=== PATIENT | female | born 1955 | race Caucasian/White ===

== ENCOUNTER 2020-01-23 11:30 | Inpatient (IN) | payer MEDICARE, OTHER ==
[~2020-01-23] VITALS: Ht 162.6 cm; Wt 106.1 kg
[~2020-01-23 11:30] MED LIST: ACET325T9 PO; ALBU2.5V14 NEB; ALBU2.5V8 IH; BIMA2.5D OP; BRIM5DRO3 LEFTEYE; CARV3.12 PO; CARV3.1210 PO; CLON-77 PO; CLOP75TA PO; CRESTOR40 MG PO; DEXT38GE2 PO; FAMO-63 PO; FENO160T PO; GABA-585 PO; INSU100C4 SQ; INSU100I13 SQ; INSU100I17 SQ; INSU100V13 SQ; INSU100V31 SQ; INSU100V8 SQ; LACT1CAP2 PO; LEVO100T5 PO; LEVO150T5 PO; LEVO200T5 PO; LINZESS145 MCG PO; METAMUCIL425 GM PO; METO25TA4 PO; MIDO10TA PO; MIDO2.5T PO; MULT-658 PO; NIAC500T PO; NYST100054 PO; ONDA4TAB10 SL; ONDA4TAB7 PO; PANT40TA77 PO; POLY2500 PO; POLY255P11 PO; PSYL0.526 PO; ROPI0.5T PO; ROPI0.5T4 PO; SERT100T PO; SERT25TA PO; SERT50TA PO; SEVE800T9 PO; SUCR500T PO; TRAM50TA PO; TRYP30OI2 TP; WARF1TAB2 PO; ZINC220T3 PO; [UNRECOGNIZED DRUG - OTHER]
--- NOTE | 2020-01-23 12:00 | RAD ---
Examination: CHEST AP ONLY History: Reason: sob, covid? / Spl. Instructions: / History: Comparison: 12/25/2017 AP view of the chest. Findings: AP portable upright frontal view of the chest was obtained. Postoperative findings of the sternum and mediastinal clips again seen. The cardiomediastinal silhouette is enlarged but this may in part be technique related. Lungs are clear. Borderline pulmonary vasculature noted. There is no pneumothorax. No pleural effusion is appreciated. Mild elevation of right hemidiaphragm is noted. No acute bone abnormality. IMPRESSION: No acute cardiopulmonary process. Electronically signed by: Colt Cheema MD (01/23/2020 11:58 AM) [id number]
[2020-01-23 12:38] LABS: BASO % 0 % (0-3); EOS # 0.1 x10^3/uL (0.0-0.7); EOS % 2 % (0-3); HEMATOCRIT 36.1 % (36.0-47.0); HEMOGLOBIN 11.8 g/dL (12.0-15.5); LYMPH # 0.7 x10^3/uL (1.0-4.8); LYMPH % 9 % (24-48); MEAN CORPUSCULAR HEMOGLOBIN 35 pg (25-35); MEAN CORPUSCULAR HGB CONC 33 g/dL (31-37); MEAN CORPUSCULAR VOLUME 107 fL (79-100); MONO # 0.5 x10^3/uL (0.0-1.1); MONO % 6 % (0-9); NEUT # 6.7 x10^3/uL (1.8-7.7); NEUT % 83 % (31-73); PLATELET COUNT 185 x10^3/uL (140-400); RED BLOOD COUNT 3.39 x10^6/uL (3.50-5.40); RED CELL DISTRIBUTION WIDTH 14.8 % (11.5-14.5); WHITE BLOOD COUNT 8.1 x10^3/uL (4.0-11.0)
[2020-01-23 12:49] LABS: CALCIUM 8.9 mg/dL (8.5-10.1); CREATININE 5.8 mg/dL (0.6-1.0); GFR 7.3; POTASSIUM 4.5 mmol/L (3.5-5.1)
[2020-01-23 12:56] LABS: ALBUMIN/GLOBULIN RATIO 0.6 (1.0-1.7); TOTAL BILIRUBIN 0.3 mg/dL (0.2-1.0); TOTAL PROTEIN 7.7 g/dL (6.4-8.2)
--- NOTE | 2020-01-23 12:57 | RAD ---
CT Head W/O Contrast: History: Reason: confusion / Spl. Instructions: / History: Comparison: December 25, 2017 Axial images were obtained without contrast. The large old left occipital parietal lobe infarct is again seen and is now mature with volume loss consistent with encephalomalacia. There is mild diffuse atrophy. There is no mass effect, extraaxial fluid collections or hydrocephalus. There is no gross bleed. Mild, patchy periventricular and subcortical white matter hypoattenuation is seen. There is no focal loss of carpio-white matter distinction to suggest acute ischemia, i.e. stroke. Impression: 1. Mild atrophy and chronic white matter changes slightly advanced for the patient's age. 2. Old large infarct on the left. 3. No acute findings. End impression PQRS Compliance Statement: One or more of the following individualized dose reduction techniques were utilized for this examination: 1. Automated exposure control 2. Adjustment of the mA and/or kV according to patient size 3. Use of iterative reconstruction technique Electronically signed by: Kofi Sykes III, MD (01/23/2020 12:54 PM) [id number]
[2020-01-23 13:23] LABS: C-REACTIVE PROTEIN 24.9 mg/L (0-3.3)
--- NOTE | 2020-01-23 13:55 | PHYS DOC ---
Past Medical History Past Medical History: Anemia, Constipation, CVA, Diabetes-Type II, High Cholesterol, Hypertension, Hypothyroid, Renal Disease, Renal Failure, Other Additional Past Medical Histor: restless leg, sleep apnea, glaucoma, cardio myopathy, ESRD Past Surgical History: Coronary Bypass Surgery, Other Additional Past Surgical Histo: left AKA, AV graft placement, Smoking Status: Never Smoker Alcohol Use: None Drug Use: None General Adult EDM: Chief Complaint: ALTERED MENTAL STATUS HPI: HPI: Patient is a 64 year old female who presents with altered mental status. According to nursing facility patient is normally fully alert and oriented. They state that they found her unresponsive with a pulse in bed. They called an ambulance and on the way here patient became more awake and alert. She then was able to tell us her name and location but was otherwise disoriented and mildly confused. She was moving all extremities. She was unable to provide us any history. Her only complaint was fatigue. She then became unresponsive again. Review of Systems: Review of Systems: Unable to obtain review of systems due to altered mental status Heart Score: Risk Factors: Risk Factors: DM, Current or recent (<one month) smoker, HTN, HLP, family history of CAD, obesity. Risk Scores: Score 0 - 3: 2.5% MACE over next 6 weeks - Discharge Home Score 4 - 6: 20.3% MACE over next 6 weeks - Admit for Clinical Observation Score 7 - 10: 72.7% MACE over next 6 weeks - Early Invasive Strategies Current Medications: Current Medications Medications (Trade) Dose Ordered Sig/[facility] Start Time Stop Time Status Last Admin Dose Admin Lorazepam (Ativan Inj) 1 mg 1X ONCE 01/23/20 12:30 01/23/20 12:31 DC 01/23/20 13:14 1 MG Allergies: Allergies: Allergies Coded Allergies Type Severity Reaction Last Updated Verified methylphenidate Allergy Intermediate 12/29/17 Yes acetaminophen Adverse Reaction Intermediate Nausea 12/29/17 Yes codeine Adverse Reaction Intermediate Nausea 12/29/17 Yes fentanyl Adverse Reaction Intermediate Nausea 12/29/17 Yes hydrocodone Adverse Reaction Intermediate Nausea 12/29/17 Yes morphine Adverse Reaction Intermediate Nausea 12/29/17 Yes oxycodone Adverse Reaction Intermediate Nausea 12/29/17 Yes Physical Exam: PE: General: lethargic, ill appearing HEENT: Atraumatic, EOMI, PERRL, airway patent, dry oral mucosa Neck: Supple, trachea midline Respiratory: CTA bilaterally, normal effort, no wheezing/crackles CV: RRR, no murmur, cap refill <2 GI: Soft, nondistended, nontender, no masses MSK: L BKA Skin: Warm, dry, intact Neuro: nonvocal, intermittently awake Current Patient Data: Labs: Laboratory Tests Test 01/23/20 12:20 White Blood Count 8.1 x10^3/uL (4.0-11.0) Red Blood Count 3.39 x10^6/uL (3.50-5.40) L Hemoglobin 11.8 g/dL (12.0-15.5) L Hematocrit 36.1 % (36.0-47.0) Mean Corpuscular Volume 107 fL (79-100) H Mean Corpuscular Hemoglobin 35 pg (25-35) Mean Corpuscular Hemoglobin Concent 33 g/dL (31-37) Red Cell Distribution Width 14.8 % (11.5-14.5) H Platelet Count 185 x10^3/uL (140-400) Neutrophils (%) (Auto) 83 % (31-73) H Lymphocytes (%) (Auto) 9 % (24-48) L Monocytes (%) (Auto) 6 % (0-9) Eosinophils (%) (Auto) 2 % (0-3) Basophils (%) (Auto) 0 % (0-3) Neutrophils # (Auto) 6.7 x10^3/uL (1.8-7.7) Lymphocytes # (Auto) 0.7 x10^3/uL (1.0-4.8) L Monocytes # (Auto) 0.5 x10^3/uL (0.0-1.1) Eosinophils # (Auto) 0.1 x10^3/uL (0.0-0.7) Basophils # (Auto) 0.0 x10^3/uL (0.0-0.2) D-Dimer (Sarah) 1.01 ug/mlFEU (0.00-0.50) H Sodium Level 134 mmol/L (136-145) L Potassium Level 4.5 mmol/L (3.5-5.1) Chloride Level 97 mmol/L (98-107) L Carbon Dioxide Level 28 mmol/L (21-32) Anion Gap 9 (6-14) Blood Urea Nitrogen 39 mg/dL (7-20) H Creatinine 5.8 mg/dL (0.6-1.0) H Estimated GFR (Cockcroft-Gault) 7.3 BUN/Creatinine Ratio 7 (6-20) Glucose Level 246 mg/dL (70-99) H Calcium Level 8.9 mg/dL (8.5-10.1) Total Bilirubin 0.3 mg/dL (0.2-1.0) Aspartate Amino Transferase (AST) 12 U/L (15-37) L Alanine Aminotransferase (ALT) 18 U/L (14-59) Alkaline Phosphatase 196 U/L (46-116) H Lactate Dehydrogenase 137 U/L (81-234) Creatine Kinase 25 U/L (26-192) L C-Reactive Protein, Quantitative 24.9 mg/L (0-3.3) H Total Protein 7.7 g/dL (6.4-8.2) Albumin 3.0 g/dL (3.4-5.0) L Albumin/Globulin Ratio 0.6 (1.0-1.7) L Laboratory Tests 01/23/20 12:20 Laboratory Tests 01/23/20 12:20 Vital Signs: Vital Signs Date Time Temp Pulse Resp B/P (MAP) Pulse Ox O2 Delivery O2 Flow Rate FiO2 01/23/20 13:17 62 12 100 01/23/20 11:30 98.2 168/72 (104) Room Air 98.2 EKG: EKG: [] Radiology/Procedures: Radiology/Procedures: [] Course & Med Decision Making: Course & Med Decision Making Pertinent Labs and Imaging studies reviewed. (See chart for details) Patient is a 64-year-old female with a history of end-stage renal disease who presents to the Emergency Room with altered mental status. On exam, patient initially was talking but disoriented. On reevaluation patient was mostly unresponsive with minimal twitching and no nystagmus. At this time it is unclear what is causing the patient's altered mental status, however they do not appear to be at their baseline. Differential includes infection, electrolyte imbalance, ACS, stroke, intracranial bleed, polypharmacy, dehydration, dementia, renal failure, seizures. Stroke is less likely given that she has episodes where she is talking mostly responsive and then episodes where she is nonresponsive. She does not have true aphasia or weakness or numbness. Patient does not have hypo-or hyperthermia. No history was provided to suggest seizure with postictal state. Glucose is 246 upon arrival. At arrival, patient is protecting their airway and does not need to be intubated. There is not any signs of trauma. To evaluate the patient's altered mental status, CBC, CMP, UA, troponin, EKG, CT head, coronavirus swab will be ordered. Patient was given Ativan during her episode of unresponsiveness for possible seizure. Patient has a severe UTI which is likely causes her altered mental status. Work up was rviewed and was remarkable for UTI. At this time, patient would benefit from further work up and management. Patient is not stable for discharge at this time. Results, vitals, interventions, and plan was discussed with the patient. Patient was given opportunity to ask any questions and are in agreement with plan for admission. Patient was discussed with admitting physician and bridge admission orders were placed. Further care will be managed by inpatient team. Munira Disclaimer: Dragmargot Disclaimer: This electronic medical record was generated, in whole or in part, using a voice recognition dictation system. Departure Departure Impression: Primary Impression: Altered mental status Disposition: ADMITTED INPATIENT Condition: GUARDED Referrals: TIANA JAY MD (PCP) Justicifation of Admission Dx: Justifications for Admission: Justification of Admission Dx: Yes LOI MATHIS MD Jan 23, 2020 13:55
[2020-01-23 14:23] LABS: CLARITY,URINE TURBID; COLOR,URINE BROWN
[2020-01-23 14:26] LABS: BILIRUBIN,URINE NEGATIVE (NEG); NITRITE,URINE NEGATIVE (NEG); PH,URINE 7.5 (<5.0-8.0); PROTEIN,URINE >=300 mg/dL (NEG-TRACE); UROBILINOGEN,URINE 0.2 mg/dL (0.2 mg/dL)
[2020-01-23 14:27] LABS: BACTERIA,URINE MANY /HPF (0-FEW); WBC,URINE TNTC /HPF (0-4)
[2020-01-23] MEDS ORDERED: CEFEPIME HCL IV Push 1 GM VIAL. IVP ONE (14:30)
--- NOTE | 2020-01-23 15:33 | RAD ---
STUDY: CT chest, abdomen and pelvis without contrast INDICATION: Abdominal bruising. Altered mental status. Fall injury. COMPARISON: None. TECHNIQUE: Helical CT imaging of the chest, abdomen and pelvis performed without the use of intravenous contrast. Sagittal and coronal reformats were obtained. One or more of the following individualized dose reduction techniques were utilized for this examination: 1. Automated exposure control 2. Adjustment of the mA and/or kV according to patient size 3. Use of iterative reconstruction technique. FINDINGS: Chest: Extensive calcific atherosclerosis. Status post median sternotomy for coronary artery bypass grafting. Nonaneurysmal aorta. Mildly prominent main pulmonary artery. Left infraclavicular fossa vascular stent. No pericardial effusion. No retrosternal hematoma. No pathologic mediastinal or hilar lymph nodes are identified though assessment is limited without contrast. Motion degraded assessment of the lungs. Scattered groundglass haziness throughout both lungs as well as tracking mostly linear densities at least in part related to discoid atelectasis. Limited assessment for solitary pulmonary nodules. No pleural effusion or pneumothorax. Multifocal muscular atrophy/fatty infiltration. No large body wall hematoma. Angulation of the posterior right ninth and 10th ribs but not appearing acute. No suspicious vertebral body height loss. Scattered degenerative changes. Abdomen/pelvis: Limited evaluation due to a combination of motion, patient body habitus and streak artifact relating to the arms. Large chronic focus of mineralization within the right hepatic lobe approaching the dome. No evidence for hepatic trauma. The gallbladder is not visualized. Fatty atrophy/infiltration of the pancreas. The spleen appears intact. No definite adrenal gland mass. Atrophic kidneys. Mild circumferential wall thickening of the urinary bladder without pericystic inflammation. Senescent uterus. No adnexal mass. The rectum is distended with well-formed stool and mildly thick-walled. Less pronounced though more proximally within the colon. Soft tissue fullness posterior to the anus and the posterior wall of the anorectal lumen this region is tented posteriorly such as seen on image 37 series 9. Gas and debris within the gluteal cleft. The appendix is absent. Nonobstructed small bowel. Poorly evaluated stomach due to underdistention. Extensive calcific atherosclerosis throughout the aorta, iliofemoral system and aortic branch vessels. Nonaneurysmal aorta. Incomplete assessment for stenosis without contrast. No lymphadenopathy. No free fluid or gas. Senescent body wall with muscular atrophy/fatty infiltration. Scattered ill-defined reticulation of the subcutaneous fat but no localized hematoma is seen. No acute or aggressive osseous process. Scattered degenerative changes. IMPRESSION: CHEST: 1. Degraded study due to motion artifact. 2. No sequela of trauma seen throughout the chest. 3. Heterogeneous attenuation pattern of the lungs favored mostly on account of scarring and atelectasis. An atypical infectious process is difficult to fully excluded but considered less likely and less clinical findings suggest otherwise. Abdomen/pelvis: 1. Degraded study due to motion, patient body habitus and streak artifact from the patient's arms. 2. No acute abnormality seen throughout the abdomen or pelvis. 3. Distention of the rectum with well-formed stool. Mild surrounding wall thickening and faint pericolonic inflammation suggesting some inflammation due to the extent of impacted stool. Soft tissue fullness at the posterior wall of the anorectal region where the lumen is somewhat tented. A colo-cutaneous fistula would be unusual but recommend correlation with patient history and direct inspection if needed (image 101 series 4 and image 37 series 9). 4. Senescent/chronic findings as detailed in the body the report. Electronically signed by: JEFFY LOCKETT MD (01/23/2020 3:30 PM) [id number]
[2020-01-23 17:00] VITALS: BP 103/57
--- NOTE | 2020-01-23 17:57 | PDOC1 ---
History and Physical Date of Admission Date of Admission DATE: 01/23/20 TIME: 17:56 History of Present Illness History of Present Illness Patient is a 64 year old female who presents with altered mental status. According to nursing facility patient is normally fully alert and oriented. They state that they found her unresponsive with a pulse in bed. They called an ambulance and on the way here patient became more awake and alert. She then was able to tell us her name and location but was otherwise disoriented and mildly confused. She was moving all extremities. She was unable to provide us any history. Her only complaint was fatigue. She then became unresponsive again. Past Medical History Cardiovascular: CHF, HTN, Hyperlipidemia, Other Pulmonary: Other CENTRAL NERVOUS SYSTEM: CVA, Other GI: Constipation, GI bleed Heme/Onc: Anemia NOS Renal/: Chronic renal failure Endocrine: Diabetes, Hypothyroidism Past Surgical History Past Surgical History: CABG, Other Family History Family History: No Significant (unable to review) Social History ALCOHOL: none Current Problem List Problem List Problems Medical Problems: (1) Altered mental status Status: Acute Current Medications Current Medications Current Medications Lorazepam (Ativan Inj) 1 mg 1X ONCE IVP Last administered on 01/23/20at 13:14; Start 01/23/20 at 12:30; Stop 01/23/20 at 12:31; Status DC Cefepime HCl (Maxipime) 1 gm 1X ONCE IVP Last administered on 01/23/20at 14:26; Start 01/23/20 at 14:30; Stop 01/23/20 at 14:31; Status DC Cefepime HCl (Maxipime) 1 gm Q12HR IVP ; Start 01/23/20 at 21:00; Status UNV Insulin Human Lispro (HumaLOG) 0-7 UNITS TIDWMEALS SQ ; Start 01/24/20 at 08:00; Status UNV Dextrose (Dextrose 50%-Water Syringe) 12.5 gm PRN Q15MIN PRN IV SEE COMMENTS; Start 01/23/20 at 18:00; Status UNV Active Scripts Active Reported Novolog Flexpen (Insulin Aspart) 100 Unit/1 Ml Insuln.pen 0 SQ Velphoro (Sucroferric Oxyhydroxide) 500 Mg Tab.chew 1,500 Mg PO TIDWMEALS Lumigan (Bimatoprost) 2.5 Ml Drops 2.5 Ml OP QHS [Aransep] Niaspan (Niacin) 500 Mg Tab.er.24h 500 Mg PO HS Levothyroxine Sodium 100 Mcg Tablet 1 Tab PO DAILY Midodrine Hcl 10 Mg Tablet 10 Mg PO QMWF Zoloft (Sertraline Hcl) 100 Mg Tablet 1 Tab PO DAILY Linzess (Linaclotide) 145 Mcg Capsule 145 Mcg PO DAILY Gabapentin (Gabapentin) 100 Mg Capsule 100 Mg PO TID Polyethylene Glycol 3350 2,500 Gm Powder 17 Gm PO DAILY Pantoprazole Sodium (Pantoprazole Sodium) 40 Mg Tablet.dr 40 Mg PO DAILY Midodrine Hcl 2.5 Mg Tablet 2.5 Mg PO DAILY Levothyroxine Sodium 150 Mcg Tablet 1 Tab PO DAILY Fenofibrate 160 Mg Tablet 1 Tab PO DAILY Clopidogrel (Clopidogrel Bisulfate) 75 Mg Tablet 1 Tab PO DAILY Clonazepam (Clonazepam) 0.5 Mg Tablet 0.5 Mg PO BID Centrum Silver Tablet (Multivits-Min/Fa/Lycopene/Lut) 1 Each Tablet 1 Each PO DAILY Carvedilol (Carvedilol) 3.125 Mg Tablet 1 Tab PO BID Alphagan P (Brimonidine Tartrate) 5 Ml Drops 1 Drop LEFTEYE BID Proair Hfa Inhaler (Albuterol Sulfate) 8.5 Gm Hfa.aer.ad 2 Puff IH PRN Q4-6HRS Zofran Odt (Ondansetron) 4 Mg Tab.rapdis 1 Tab SL PRN Q6HRS PRN Zinc Sulfate 220 Mg Tablet 220 Mg PO DAILY Tramadol Hcl 50 Mg Tablet 1 Tab PO Q4HRS PRN Renvela (Sevelamer Carbonate) 800 Mg Tablet 3 Tab PO TID Crestor (Rosuvastatin Calcium) 40 Mg Tablet 40 Mg PO HS Ropinirole Hcl 0.5 Mg Tablet 0.5 Mg PO QHS Requip (Ropinirole Hcl) 0.5 Mg Tablet 0.25 Mg PO DAILY Psyllium Fiber (Psyllium Husk) 0.52 Gm Capsule 3.4 Gm PO DAILY Polyethylene Glycol 3350 255 Gm Powder 1 s PO BID Acidophilus (Lactobacillus Acidophilus) 1 Each Capsule 1 Each PO TIDWMEALS Tylenol (Acetaminophen) 325 Mg Tablet 1-2 Tab PO QID PRN Allergies Allergies: Coded Allergies: methylphenidate (Verified Allergy, Intermediate, 12/29/17) acetaminophen (Verified Adverse Reaction, Intermediate, Nausea, 12/29/17) codeine (Verified Adverse Reaction, Intermediate, Nausea, 12/29/17) fentanyl (Verified Adverse Reaction, Intermediate, Nausea, 12/29/17) hydrocodone (Verified Adverse Reaction, Intermediate, Nausea, 12/29/17) morphine (Verified Adverse Reaction, Intermediate, Nausea, 12/29/17) oxycodone (Verified Adverse Reaction, Intermediate, Nausea, 12/29/17) ROS Review of System was confused, now obtunded after given ativan Physical Exam General: No acute distress, Other (obtunded, ) HEENT: Atraumatic, Mucous membr. moist/pink, Other Lungs: Clear to auscultation Heart: S1S2, no murmurs Abdomen: Normal bowel sounds, Soft Extremities: No cyanosis, Normal pulses Skin: No rashes Neuro: Sensation intact Psych/Mental Status: Other (obtunded, ) Vitals Vitals Vital Signs Date Time Temp Pulse Resp B/P (MAP) Pulse Ox O2 Delivery O2 Flow Rate FiO2 01/23/20 16:40 97.5 56 24 100 97.5 01/23/20 11:30 168/72 (104) Room Air Labs Labs Laboratory Tests Test 01/23/20 12:20 01/23/20 13:00 White Blood Count 8.1 x10^3/uL (4.0-11.0) Red Blood Count 3.39 x10^6/uL (3.50-5.40) Hemoglobin 11.8 g/dL (12.0-15.5) Hematocrit 36.1 % (36.0-47.0) Mean Corpuscular Volume 107 fL (79-100) Mean Corpuscular Hemoglobin 35 pg (25-35) Mean Corpuscular Hemoglobin Concent 33 g/dL (31-37) Red Cell Distribution Width 14.8 % (11.5-14.5) Platelet Count 185 x10^3/uL (140-400) Neutrophils (%) (Auto) 83 % (31-73) Lymphocytes (%) (Auto) 9 % (24-48) Monocytes (%) (Auto) 6 % (0-9) Eosinophils (%) (Auto) 2 % (0-3) Basophils (%) (Auto) 0 % (0-3) Neutrophils # (Auto) 6.7 x10^3/uL (1.8-7.7) Lymphocytes # (Auto) 0.7 x10^3/uL (1.0-4.8) Monocytes # (Auto) 0.5 x10^3/uL (0.0-1.1) Eosinophils # (Auto) 0.1 x10^3/uL (0.0-0.7) Basophils # (Auto) 0.0 x10^3/uL (0.0-0.2) D-Dimer (Sarah) 1.01 ug/mlFEU (0.00-0.50) Sodium Level 134 mmol/L (136-145) Potassium Level 4.5 mmol/L (3.5-5.1) Chloride Level 97 mmol/L (98-107) Carbon Dioxide Level 28 mmol/L (21-32) Anion Gap 9 (6-14) Blood Urea Nitrogen 39 mg/dL (7-20) Creatinine 5.8 mg/dL (0.6-1.0) Estimated GFR (Cockcroft-Gault) 7.3 BUN/Creatinine Ratio 7 (6-20) Glucose Level 246 mg/dL (70-99) Calcium Level 8.9 mg/dL (8.5-10.1) Total Bilirubin 0.3 mg/dL (0.2-1.0) Aspartate Amino Transf (AST/SGOT) 12 U/L (15-37) Alanine Aminotransferase (ALT/SGPT) 18 U/L (14-59) Alkaline Phosphatase 196 U/L (46-116) Lactate Dehydrogenase 137 U/L (81-234) Creatine Kinase 25 U/L (26-192) C-Reactive Protein, Quantitative 24.9 mg/L (0-3.3) Total Protein 7.7 g/dL (6.4-8.2) Albumin 3.0 g/dL (3.4-5.0) Albumin/Globulin Ratio 0.6 (1.0-1.7) Urine Collection Type U cath Urine Color Brown Urine Clarity Turbid Urine pH 7.5 (<5.0-8.0) Urine Specific [place] >=1.030 (1.000-1.030) Urine Protein >=300 mg/dL (NEG-TRACE) Urine Glucose (UA) Negative mg/dL (NEG) Urine Ketones (Stick) Negative mg/dL (NEG) Urine Blood Moderate (NEG) Urine Nitrite Negative (NEG) Urine Bilirubin Negative (NEG) Urine Urobilinogen Dipstick 0.2 mg/dL (0.2 mg/dL) Urine Leukocyte Esterase Large (NEG) Urine RBC /HPF (0-2) Urine WBC Tntc /HPF (0-4) Urine Bacteria Many /HPF (0-FEW) Laboratory Tests Test 01/23/20 12:20 01/23/20 13:00 White Blood Count 8.1 x10^3/uL (4.0-11.0) Red Blood Count 3.39 x10^6/uL (3.50-5.40) Hemoglobin 11.8 g/dL (12.0-15.5) Hematocrit 36.1 % (36.0-47.0) Mean Corpuscular Volume 107 fL (79-100) Mean Corpuscular Hemoglobin 35 pg (25-35) Mean Corpuscular Hemoglobin Concent 33 g/dL (31-37) Red Cell Distribution Width 14.8 % (11.5-14.5) Platelet Count 185 x10^3/uL (140-400) Neutrophils (%) (Auto) 83 % (31-73) Lymphocytes (%) (Auto) 9 % (24-48) Monocytes (%) (Auto) 6 % (0-9) Eosinophils (%) (Auto) 2 % (0-3) Basophils (%) (Auto) 0 % (0-3) Neutrophils # (Auto) 6.7 x10^3/uL (1.8-7.7) Lymphocytes # (Auto) 0.7 x10^3/uL (1.0-4.8) Monocytes # (Auto) 0.5 x10^3/uL (0.0-1.1) Eosinophils # (Auto) 0.1 x10^3/uL (0.0-0.7) Basophils # (Auto) 0.0 x10^3/uL (0.0-0.2) D-Dimer (Sarah) 1.01 ug/mlFEU (0.00-0.50) Sodium Level 134 mmol/L (136-145) Potassium Level 4.5 mmol/L (3.5-5.1) Chloride Level 97 mmol/L (98-107) Carbon Dioxide Level 28 mmol/L (21-32) Anion Gap 9 (6-14) Blood Urea Nitrogen 39 mg/dL (7-20) Creatinine 5.8 mg/dL (0.6-1.0) Estimated GFR (Cockcroft-Gault) 7.3 BUN/Creatinine Ratio 7 (6-20) Glucose Level 246 mg/dL (70-99) Calcium Level 8.9 mg/dL (8.5-10.1) Total Bilirubin 0.3 mg/dL (0.2-1.0) Aspartate Amino Transf (AST/SGOT) 12 U/L (15-37) Alanine Aminotransferase (ALT/SGPT) 18 U/L (14-59) Alkaline Phosphatase 196 U/L (46-116) Lactate Dehydrogenase 137 U/L (81-234) Creatine Kinase 25 U/L (26-192) C-Reactive Protein, Quantitative 24.9 mg/L (0-3.3) Total Protein 7.7 g/dL (6.4-8.2) Albumin 3.0 g/dL (3.4-5.0) Albumin/Globulin Ratio 0.6 (1.0-1.7) Urine Collection Type U cath Urine Color Brown Urine Clarity Turbid Urine pH 7.5 (<5.0-8.0) Urine Specific [place] >=1.030 (1.000-1.030) Urine Protein >=300 mg/dL (NEG-TRACE) Urine Glucose (UA) Negative mg/dL (NEG) Urine Ketones (Stick) Negative mg/dL (NEG) Urine Blood Moderate (NEG) Urine Nitrite Negative (NEG) Urine Bilirubin Negative (NEG) Urine Urobilinogen Dipstick 0.2 mg/dL (0.2 mg/dL) Urine Leukocyte Esterase Large (NEG) Urine RBC /HPF (0-2) Urine WBC Tntc /HPF (0-4) Urine Bacteria Many /HPF (0-FEW) VTE Prophylaxis Ordered VTE Prophylaxis Devices: No VTE Pharmacological Prophylaxi: Yes Assessment/Plan Assessment/Plan sepsis, UTI acute confusion, metabolic encephalopathy, was poorly responsive on admit, ESRD poss seizure disorder or post-ictal, given ativan for same before my eval, Justicifation of Admission Dx: Justifications for Admission: Justification of Admission Dx: Yes PRIYA BLACK MD Jan 23, 2020 17:57
[2020-01-23] MEDS ORDERED: DEXTROSE 50% 25 GM / 50ML DISP.SYRIN. IV PRN ×2 (18:00→19:00)
[2020-01-23] MEDS ORDERED: ACETAMINOPHEN 325 MG TABLET. PO PRN (18:00)
[2020-01-23] MEDS ORDERED: ONDANSETRON ODT 4 MG TAB.RAPDIS. PO PRN ×2 (18:00→19:15)
[2020-01-23] MEDS ORDERED: SENN-182 PO (18:35)
[2020-01-23] MEDS ORDERED: ROPI1TAB4 PO (18:35)
[2020-01-23] MEDS ORDERED: BIMA2.5D EACHEYE (18:35)
[2020-01-23] MEDS ORDERED: CLOP75TA PO (18:35)
[2020-01-23] MEDS ORDERED: ATOR40TA59 PO (18:35)
[2020-01-23] MEDS ORDERED: CYAN100072 PO (18:35)
[2020-01-23] MEDS ORDERED: NIAC-9 PO (18:35)
[2020-01-23] MEDS ORDERED: POLY15DR27 EACHEYE (18:35)
[2020-01-23] MEDS ORDERED: LINZESS145 MCG PO (18:35)
[2020-01-23] MEDS ORDERED: INSU100V13 SQ ×2 (18:35)
[2020-01-23] MEDS ORDERED: POLY17PO29 PO (18:35)
[2020-01-23] MEDS ORDERED: LEVO-101 PO (18:35)
[2020-01-23] MEDS ORDERED: FOLI0.8T21 PO (18:35)
[2020-01-23] MEDS ORDERED: MIDO10TA PO ×2 (18:35)
[2020-01-23] MEDS ORDERED: PSYL3.4P PO (18:35)
[2020-01-23] MEDS ORDERED: ONDA4TAB7 PO (18:35)
[2020-01-23] MEDS ORDERED: TRAM50TA PO (18:35)
[2020-01-23] MEDS ORDERED: BRIM5DRO2 OP (18:35)
[2020-01-23] MEDS ORDERED: ROPI0.254 PO (18:35)
[2020-01-23] MEDS ORDERED: FAMO-63 PO (18:35)
[2020-01-23] MEDS ORDERED: ZINC50TA39 PO (18:35)
[2020-01-23] MEDS ORDERED: METO10TA81 PO (18:35)
[2020-01-23] MEDS ORDERED: SEVE2.4P PO (18:35)
[2020-01-23] MEDS ORDERED: LACT1CAP6 PO (18:35)
[2020-01-23] MEDS ORDERED: [UNRECOGNIZED DRUG - CODE] TP (18:35)
[2020-01-23] MEDS ORDERED: INSU100C4 SQ (18:35)
[2020-01-23] MEDS ORDERED: GABA-585 PO (18:35)
[2020-01-23] MEDS ORDERED: DEXT38GE2 PO (18:35)
[2020-01-23] MEDS ORDERED: traMADol 50 MG TABLET PO PRN (18:45)
[2020-01-23] MEDS ORDERED: SERT100T PO (18:51)
[2020-01-23 19:00] VITALS: BP 121/52
--- NOTE | 2020-01-23 19:11 | NUR ---
Pt arrived to unit from ED via gurney. Pt completely unresponsive upon arrival. Only responsive to painful stimuli. VS within stable. Unable to complete portions of admission due to pt mental status. Family notified of admission. correction contacted and admit questions answered to the best of their abilities. Pt has P500 bed ordered.
[2020-01-23 19:23] LABS: MAGNESIUM 2.2 mg/dL (1.8-2.4); PHOSPHORUS 5.3 mg/dL (2.6-4.7)
[2020-01-23] MEDS ORDERED: PSYLLIUM HUSK (SUGAR FREE) 1 PKT PACKET PO SCH (21:00)
[2020-01-23] MEDS ORDERED: GABAPENTIN 100 MG CAPSULE. PO SCH (21:00)
[2020-01-23] MEDS: LACTOBACILLUS RHAMNOSUS GG 1 CAPSULE. PO SCH (21:00)
[2020-01-23] MEDS ORDERED: CARVEDILOL 3.125 MG TABLET. PO SCH (21:00)
[2020-01-23] MEDS: FAMOTIDINE 20 MG TABLET. PO SCH (21:00)
[2020-01-23] MEDS: INSULIN GLARGINE SYRINGE. SQ SCH (21:00)
[2020-01-23] MEDS: NIACIN ER 250 MG CAPSULE.ER PO SCH (21:00)
[2020-01-23] MEDS: GABAPENTIN 100 MG CAPSULE. PO SCH (21:00)
[2020-01-23] MEDS: rOPINIRole 1 MG TABLET. PO SCH (21:00)
[2020-01-23] MEDS: METOCLOPRAMIDE 5 MG TABLET. PO SCH (21:00)
[2020-01-23] MEDS: LATANOPROST 0.005% OPHTH SOLUTION 2.5ML BOTTLE. OU SCH (21:56)
[2020-01-23] MEDS: TIMOLOL 0.5% OPHTH SOLUTION 5ML BOTTLE. OU SCH (21:56)
[2020-01-23] MEDS: POLYVINYL ALCOHOL 1.4% OPHTH SOLUTION 15ML BOTTLE. OU SCH (21:56)
[2020-01-23] MEDS: BRIMONIDINE 0.2% OPHTH SOLUTION 5ML BOTTLE. OU SCH (21:56)
[2020-01-23] MEDS: HEPARIN for SUB-Q USE 5,000 UNIT/ML VIAL. SQ SCH (21:57)
[2020-01-24] VITALS (7 sets, daily range): BP systolic 104–140; BP diastolic 49–101
[2020-01-24] MEDS ORDERED: VANCOMYCIN 2 GM in IV NORMAL SALINE 500ML BAG 500 ML IV ONE (01:00)
[2020-01-24] MEDS: VANCOMYCIN PER PHARMACY MC PRN (01:12)
--- NOTE | 2020-01-24 01:12 | NUR ---
Pharmacy Vancomycin Dosing Note S:Consulted to monitor and dose vancomycin started 01/24/20. O:LAINE KING is a 64 year old F with UTI . Height: 5 feet, 4 inches Weight: 105.0 kg [place] Body Weight: 54.70 Adjusted Body Weight: 74.82 Dosing Weight: Actual Other Antibiotics: CEFEPIME 1 GM Q24H LABS: Last BUN: 39 Last Creatinine: 5.8 Creatinine Clearance: HD mL/min Last WBC: 8.1 Last Procalcitonin: Tmax (past 24 hours): Microbiology: I/O: Drug Levels: Last level: on at Last dose given 01/24/20 at 0100 Vancomycin Dosing: Loading Dose: 2000 mg x1 Dosing Weight: Actual Target Trough: 15-20 A: Based on: WT AND DIALYSIS SCHEDULE P: 1. Begin Vancomycin PER LEVELS IV Dose Per Levels 2. Follow up Random level on 01/26/20 at 0500 3. Pharmacy will continue to monitor, follow and adjust therapy as needed. CIELO CRUZ RPH, 01/24/20 0112 Signed: 01/24/20 at 0113 by CIELO CRUZ RPH PHA Signed: 01/24/20 at 0113 by CIELO NANCY, RPH PHA
[2020-01-24 05:36] LABS: BASO % 0 % (0-3); EOS # 0.2 x10^3/uL (0.0-0.7); EOS % 3 % (0-3); HEMOGLOBIN 11.1 g/dL (12.0-15.5); LYMPH # 0.8 x10^3/uL (1.0-4.8); LYMPH % 14 % (24-48); MEAN CORPUSCULAR HEMOGLOBIN 35 pg (25-35); MEAN CORPUSCULAR HGB CONC 33 g/dL (31-37); MEAN CORPUSCULAR VOLUME 107 fL (79-100); MONO # 0.5 x10^3/uL (0.0-1.1); MONO % 9 % (0-9); NEUT # 4.1 x10^3/uL (1.8-7.7); NEUT % 74 % (31-73); PLATELET COUNT 152 x10^3/uL (140-400); RED BLOOD COUNT 3.18 x10^6/uL (3.50-5.40); RED CELL DISTRIBUTION WIDTH 14.6 % (11.5-14.5); WHITE BLOOD COUNT 5.5 x10^3/uL (4.0-11.0)
[2020-01-24 05:37] LABS: PROTHROMBIN TIME PATIENT 13.7 SEC (11.7-14.0)
[2020-01-24 05:51] LABS: ALBUMIN 2.7 g/dL (3.4-5.0); ALBUMIN/GLOBULIN RATIO 0.8 (1.0-1.7); CALCIUM 8.3 mg/dL (8.5-10.1); CREATININE 6.4 mg/dL (0.6-1.0); GFR 6.5; POTASSIUM 4.6 mmol/L (3.5-5.1); TOTAL BILIRUBIN 0.4 mg/dL (0.2-1.0); TOTAL PROTEIN 6.3 g/dL (6.4-8.2)
[2020-01-24] MEDS: HYDROCORTISONE SOD SUCC/PF 100 MG/2 ML VIAL. IVP SCH ×3 (06:15→21:05)
[2020-01-24] MEDS: MIDODRINE 5 MG TABLET PO SCH ×3 (06:16→18:00)
[2020-01-24] MEDS ORDERED: PANTOPRAZOLE 40 MG TABLET.DR. PO SCH (07:00)
[2020-01-24] MEDS ORDERED: MIDODRINE 5 MG TABLET PO PRN (07:00)
[2020-01-24] MEDS: INSULIN LISPRO 300 UNITS/3 ML VIAL. SQ SCH ×6 (08:00→17:00)
[2020-01-24] MEDS ORDERED: SEVELAMER CARBONATE 800 MG TABLET. PO SCH (08:00)
[2020-01-24] MEDS ORDERED: INSULIN LISPRO 300 UNITS/3 ML VIAL. SQ SCH (08:00)
[2020-01-24] MEDS: SEVELAMER CARBONATE 2.4 GM PACKET. PO SCH ×3 (08:00→20:28)
[2020-01-24] MEDS: LACTOBACILLUS RHAMNOSUS GG 1 CAPSULE. PO SCH ×2 (08:37→20:29)
[2020-01-24] MEDS: METOCLOPRAMIDE 5 MG TABLET. PO SCH ×4 (08:37→20:29)
[2020-01-24] MEDS: LUBIPROSTONE 24 MCG CAPSULE PO SCH ×2 (08:37→17:00)
[2020-01-24] MEDS: FOLIC/VIT B COMP W-C (RENAL) TABLET. PO SCH (08:37)
[2020-01-24] MEDS: ZINC SULFATE 220 MG CAPSULE. PO SCH (08:37)
[2020-01-24] MEDS: SENNOSIDES 8.6 MG TABLET PO SCH (08:37)
[2020-01-24] MEDS: CLOPIDOGREL BISULFATE 75 MG TABLET PO SCH (08:38)
[2020-01-24] MEDS: rOPINIRole 0.25 MG TABLET. PO SCH (08:38)
[2020-01-24] MEDS: SERTRALINE 50 MG TABLET. PO SCH (08:38)
[2020-01-24] MEDS: GABAPENTIN 100 MG CAPSULE. PO SCH ×3 (08:38→20:30)
[2020-01-24] MEDS: ATORVASTATIN CALCIUM 40 MG TABLET. PO SCH (08:39)
[2020-01-24] MEDS: POLYVINYL ALCOHOL 1.4% OPHTH SOLUTION 15ML BOTTLE. OU SCH ×2 (08:39→20:12)
[2020-01-24] MEDS: BRIMONIDINE 0.2% OPHTH SOLUTION 5ML BOTTLE. OU SCH ×2 (08:39→20:13)
[2020-01-24] MEDS: LEVOTHYROXINE 100 MCG TABLET PO SCH (08:39)
[2020-01-24] MEDS: TIMOLOL 0.5% OPHTH SOLUTION 5ML BOTTLE. OU SCH ×2 (08:39→20:13)
[2020-01-24] MEDS: HEPARIN for SUB-Q USE 5,000 UNIT/ML VIAL. SQ SCH ×2 (08:40→20:31)
[2020-01-24] MEDS ORDERED: [UNRECOGNIZED DRUG - OTHER] TP SCH (09:00)
[2020-01-24] MEDS ORDERED: CLOPIDOGREL BISULFATE 75 MG TABLET PO SCH (09:00)
[2020-01-24] MEDS ORDERED: LEVOTHYROXINE 100 MCG TABLET PO SCH (09:00)
[2020-01-24] MEDS ORDERED: ZINC SULFATE 220 MG CAPSULE. PO SCH (09:00)
[2020-01-24] MEDS: INSULIN GLARGINE SYRINGE. SQ SCH ×2 (09:00→21:05)
[2020-01-24] MEDS ORDERED: CHOLECALCIFEROL (VITAMIN D3) 5,000 UNIT CAPSULE PO SCH (09:00)
[2020-01-24] MEDS ORDERED: POLYETHYLENE GLYCOL 3350 17 GM PACKET. PO SCH (09:00)
[2020-01-24] MEDS ORDERED: MIDODRINE 2.5 MG TABLET PO SCH (09:00)
--- NOTE | 2020-01-24 12:28 | PN ---
DATE: 01/24/2020 CHIEF COMPLAINT: UTI, metabolic encephalopathy, CHF, hypertension, hyperlipidemia, history of strokes, GERD, GI bleeds, chronic renal failure, diabetes, hypothyroidism. HISTORY OF PRESENT ILLNESS: The patient is a pleasant elderly female who was admitted last night for UTI with metabolic encephalopathy. She is now being examined on the medical floor. OBJECTIVE: VITAL SIGNS: Stable. GENERAL: She is alert, but weak. States she hurts all over. HEART: Normal S1, S2. LUNGS: Clear. ABDOMEN: Soft, positive bowel sounds. EXTREMITIES: She has lower extremity [id number] amputation. ASSESSMENT AND PLAN: Metabolic encephalopathy, urinary tract infection and multiple comorbidities, please see above. For now, we are doing IV fluids, IV antibiotics. Follow labs, home meds, DVT prophylaxis. Full code. DIDIER ROY DO DR: JANICE/kieran JOB#: [id number] / [id number]
--- NOTE | 2020-01-24 12:40 | HP ---
ADMIT DATE: 01/24/2020 CHIEF COMPLAINT: Mental status change. HISTORY OF PRESENT ILLNESS: The patient is a pleasant elderly female who presents with mental status change. While in the ER, we noticed that she has had a UTI. She seems to have metabolic encephalopathy. She has multiple comorbidities including heart failure, hyperlipidemia and stroke. We are going to admit the patient and give her IV antibiotics. PAST MEDICAL HISTORY: 1. CHF. 2. Hypertension. 3. Hyperlipidemia. DICTATION ENDS HERE DIDIER ROY DO DR: JANICE/kieran JOB#: [id number] / [id number]
[2020-01-24] MEDS ORDERED: ONDANSETRON PF 4 MG/2 ML VIAL. ONE (16:03)
[2020-01-24] MEDS ORDERED: IV NORMAL SALINE 1000ML BAG 1,000 ML IV PRN ×2 (16:08)
[2020-01-24] MEDS ORDERED: DIALYSIS PATIENT. MC PRN ×2 (16:15)
[2020-01-24] MEDS ORDERED: ONDANSETRON PF 4 MG/2 ML VIAL. IV ONE (16:15)
[2020-01-24] MEDS ORDERED: ALBUMIN HUMAN 25% 200 ML IV PRN (16:15)
[2020-01-24] MEDS ORDERED: ONDANSETRON PF 4 MG/2 ML VIAL. IVP PRN (16:15)
--- NOTE | 2020-01-24 17:20 | NUR ---
SW following. Reviewed chart and spoke with RN. Pt resides in LTC at [facility], , (fax). Pt on 3 l 02 and IV Vancomycin. Pt COVID pending. SW to continue following.
[2020-01-24] MEDS: CEFEPIME HCL IV Push 1 GM VIAL. IVP SCH (20:12)
[2020-01-24] MEDS: LATANOPROST 0.005% OPHTH SOLUTION 2.5ML BOTTLE. OU SCH (20:12)
[2020-01-24] MEDS: rOPINIRole 1 MG TABLET. PO SCH (20:28)
[2020-01-24] MEDS: PSYLLIUM HUSK (SUGAR FREE) 1 PKT PACKET PO SCH (20:28)
[2020-01-24] MEDS: FAMOTIDINE 20 MG TABLET. PO SCH (20:28)
[2020-01-24] MEDS: NIACIN ER 250 MG CAPSULE.ER PO SCH (20:31)
--- NOTE | 2020-01-24 22:31 | PDOC2 ---
CONSULT Date of Consult Date of Consult DATE: 01/24/20 TIME: 22:21 Reason for Consult Reason for Consult: ESRD Source Source: Chart review History of Present Illness Reason for Visit: Hx Obtained from Chart review Patient is a 64 year old female who presents with altered mental status. According to nursing facility patient is normally fully alert and oriented. They state that they found her unresponsive with a pulse in bed. They called an ambulance and on the way here patient became more awake and alert. She then was able to tell us her name and location but was otherwise disoriented and mildly confused. She was moving all extremities. She was unable to provide us any history. Her only complaint was fatigue. She then became unresponsive again. CoVid pending Past Medical History Cardiovascular: CHF, HTN, Hyperlipidemia, Other Pulmonary: Other CENTRAL NERVOUS SYSTEM: CVA, Other GI: Constipation, GI bleed Heme/Onc: Anemia NOS Renal/: Chronic renal failure Endocrine: Diabetes, Hypothyroidism Past Surgical History Past Surgical History: CABG, Other Family History Family History: No Significant (unable to review) Social History ALCOHOL: none Current Problem List Problem List Problems Medical Problems: (1) Altered mental status Status: Acute Current Medications Current Medications Current Medications Lorazepam (Ativan Inj) 1 mg 1X ONCE IVP Last administered on 01/23/20at 13:14; Start 01/23/20 at 12:30; Stop 01/23/20 at 12:31; Status DC Cefepime HCl (Maxipime) 1 gm 1X ONCE IVP Last administered on 01/23/20at 14:26; Start 01/23/20 at 14:30; Stop 01/23/20 at 14:31; Status DC Cefepime HCl (Maxipime) 1 gm Q24H IVP Last administered on 01/24/20at 20:12; Start 01/24/20 at 17:00 Insulin Human Lispro (HumaLOG) 0-7 UNITS TIDWMEALS SQ ; Start 01/24/20 at 08:00; Stop 01/23/20 at 18:40; Status DC Dextrose (Dextrose 50%-Water Syringe) 12.5 gm PRN Q15MIN PRN IV SEE COMMENTS; Start 01/23/20 at 18:00 Acetaminophen (Tylenol) 325 mg PRN QID PRN PO MILD PAIN / TEMP > 100.3'F; Start 01/23/20 at 18:00; Stop 01/23/20 at 18:40; Status DC Carvedilol (Coreg) 3.125 mg BIDWMEALS PO ; Start 01/23/20 at 21:00; Stop 01/23/20 at 18:40; Status DC Clopidogrel Bisulfate (Plavix) 75 mg DAILY PO ; Start 01/24/20 at 09:00; Stop 01/23/20 at 18:40; Status DC Gabapentin (Neurontin) 100 mg TID PO ; Start 01/23/20 at 21:00; Stop 01/23/20 at 18:40; Status DC Levothyroxine Sodium (Synthroid) 100 mcg DAILY PO ; Start 01/24/20 at 09:00; Stop 01/23/20 at 18:40; Status DC Midodrine (Proamatine) 2.5 mg DAILY PO ; Start 01/24/20 at 09:00; Stop 01/23/20 at 18:40; Status DC Ondansetron HCl (Zofran Odt) 4 mg PRN Q6HRS PRN PO NAUSEA/VOMITING; Start 01/23/20 at 18:00; Stop 01/23/20 at 18:40; Status DC Pantoprazole Sodium (Protonix) 40 mg DAILY07 PO ; Start 01/24/20 at 07:00; Stop 01/23/20 at 18:40; Status DC Polyethylene Glycol (miraLAX PACKET) 17 gm DAILY PO ; Start 01/24/20 at 09:00; Stop 01/23/20 at 18:40; Status DC Sevelamer Carbonate (Renvela) 2,400 mg TIDWMEALS PO ; Start 01/24/20 at 08:00; Stop 01/23/20 at 18:40; Status DC Zinc Sulfate (Orazinc) 220 mg DAILY PO ; Start 01/24/20 at 09:00; Stop 01/23/20 at 18:40; Status DC Vitamin D (Vitamin D3) 5,000 unit DAILY PO ; Start 01/24/20 at 09:00; Stop 01/23/20 at 18:40; Status DC Lorazepam (Ativan Inj) 1 mg PRN Q4HRS PRN IVP ANXIETY / AGITATION; Start 01/23/20 at 18:00 Heparin Sodium (Porcine) (Heparin Sodium) 5,000 unit Q12HR SQ Last administered on 01/24/20 20:31; Start 01/23/20 at 21:00 Atorvastatin Calcium (Lipitor) 40 mg DAILY PO Last administered on 01/24/20 08:39; Start 01/24/20 at 09:00 Clopidogrel Bisulfate (Plavix) 75 mg DAILY PO Last administered on 01/24/20 08:38; Start 01/24/20 at 09:00 Famotidine (Pepcid) 20 mg HS PO Last administered on 01/24/20 20:28; Start 01/23/20 at 21:00 Vitamin B Complex/ Vitamin C (Maribell-Prem) 1 tab DAILY PO Last administered on 01/24/20 08:37; Start 01/24/20 at 09:00 Gabapentin (Neurontin) 100 mg TID PO Last administered on 01/24/20 20:30; Start 01/23/20 at 21:00 Levothyroxine Sodium (Synthroid) 100 mcg DAILY PO Last administered on 01/24/20 08:39; Start 01/24/20 at 09:00 Metoclopramide HCl (Reglan) 2.5 mg QIDACHS PO Last administered on 01/24/20 20:29; Start 01/23/20 at 21:00 Polyethylene Glycol (miraLAX PACKET) 17 gm Q3DAYS PO ; Start 01/26/20 at 09:00 Artificial Tears (Artificial Tears) 1 drop BID OU Last administered on 01/24/20 20:12; Start 01/23/20 at 21:00 Psyllium Hydrophilic Mucilloid (Metamucil Fiber Packet) 17 pkt BID PO ; Start 01/23/20 at 21:00; Stop 01/24/20 at 11:08; Status DC Ropinirole HCl (Requip) 0.25 mg DAILY PO Last administered on 01/24/20 08:38; Start 01/24/20 at 09:00 Ropinirole HCl (Requip) 1 mg QHS PO Last administered on 01/24/20 20:28; Start 01/23/20 at 21:00 Sennosides (Senna) 8.6 mg DAILY PO Last administered on 01/24/20 08:37; Start 01/24/20 at 09:00 Sevelamer Carbonate (Renvela) 2.4 gm TIDWMEALS PO Last administered on 01/24/20at 20:28; Start 01/24/20 at 08:00 Tramadol HCl (Ultram) 50 mg PRN DAILY PRN PO PAIN; Start 01/23/20 at 18:45 Latanoprost (Xalatan) 1 drop QHS OU Last administered on 01/24/20at 20:12; Start 01/23/20 at 21:00 Timolol Maleate (Timoptic 0.5% [facility]) 1 drop BID OU Last administered on 01/24/20at 20:13; Start 01/23/20 at 21:00 Non-Formulary Medication (Glycerin/Dimeth/ Surfactants (Cavilon One-Step Skin Care Lot)) 236 ml DAILY TP ; Start 01/24/20 at 09:00; Stop 01/23/20 at 19:04; Status DC Insulin Human Lispro (HumaLOG) 10 units TIDWMEALS SQ ; Start 01/24/20 at 08:00 Insulin Glargine (Lantus Syringe) 22 unit QHS SQ Last administered on 01/24/20at 21:05; Start 01/23/20 at 21:00 Insulin Glargine (Lantus Syringe) 25 unit DAILY SQ ; Start 01/24/20 at 09:00 Lactobacillus Rhamnosus (Culturelle) 1 cap BID PO Last administered on 01/24/20at 20:29; Start 01/23/20 at 21:00 Lubiprostone (Amitiza) 24 mcg BIDWMEALS PO Last administered on 01/24/20at 08:37; Start 01/24/20 at 08:00 Midodrine (Proamatine) 10 mg QMWF@0700 PO ; Start 01/24/20 at 07:00 Midodrine (Proamatine) 10 mg PRN Q8HRS PRN PO HYPOTENSION; Start 01/24/20 at 07:00 Niacin (Niaspan) 500 mg QHS PO Last administered on 01/24/20at 20:31; Start 01/23/20 at 21:00 Ondansetron HCl (Zofran Odt) 4 mg PRN Q6HRS PRN PO NAUSEA/VOMITING; Start 01/23/20 at 19:15; Stop 01/24/20 at 16:09; Status DC Zinc Sulfate (Orazinc) 220 mg DAILY PO Last administered on 01/24/20at 08:37; Start 01/24/20 at 09:00 Sertraline HCl (Zoloft) 100 mg DAILY PO Last administered on 01/24/20at 08:38; Start 01/24/20 at 09:00 Insulin Human Lispro (HumaLOG) 0-9 UNITS TIDWMEALS SQ ; Start 01/24/20 at 08:00 Dextrose (Dextrose 50%-Water Syringe) 12.5 gm PRN Q15MIN PRN IV SEE COMMENTS; Start 01/23/20 at 19:00; Status Cancel Brimonidine Tartrate (Alphagan) 1 drop BID OU Last administered on 01/24/20at 20:13; Start 01/23/20 at 21:00 Midodrine (Proamatine) 10 mg QMWF@1300 PO Last administered on 01/24/20at 12:58; Start 01/24/20 at 13:00 Midodrine (Proamatine) 10 mg QMWF@1800 PO ; Start 01/24/20 at 18:00 Vancomycin HCl (Vanco Per Pharmacy) 1 each PRN DAILY PRN MC SEE COMMENTS Last administered on 01/24/20at 01:12; Start 01/24/20 at 00:30 Hydrocortisone Sodium Succinate (Solu-CORTEF) 100 mg Q8HRS IVP Last administered on 01/24/20at 21:05; Start 01/24/20 at 06:00 Vancomycin HCl 2 gm/Sodium Chloride 500 ml @ 250 mls/hr 1X ONCE IV Last administered on 01/24/20at 00:58; Start 01/24/20 at 01:00; Stop 01/24/20 at 02:59; Status DC Vancomycin HCl (Vancomycin Random Level) 1 each 1X ONCE MC ; Start 01/26/20 at 05:00; Stop 01/26/20 at 05:01 Psyllium Hydrophilic Mucilloid (Metamucil Fiber Packet) 1 pkt BID PO Last administered on 01/24/20at 20:28; Start 01/24/20 at 21:00 Ondansetron HCl (Zofran) 4 mg STK-MED ONCE .ROUTE ; Start 01/24/20 at 16:03; Stop 01/24/20 at 16:03; Status DC Ondansetron HCl (Zofran) 4 mg PRN Q8HRS PRN IVP NAUSEA/VOMITING; Start 01/24/20 at 16:15 Sodium Chloride 1,000 ml @ 1,000 mls/hr Q1H PRN IV hypotension; Start 01/24/20 at 16:08; Stop 01/24/20 at 22:07; Status DC Albumin Human 200 ml @ 200 mls/hr 1X PRN PRN IV Hypotension; Start 01/24/20 at 16:15; Stop 01/24/20 at 22:14; Status DC Sodium Chloride 1,000 ml @ 400 mls/hr Q2H30M PRN IV PATENCY; Start 01/24/20 at 16:08; Stop 01/25/20 at 04:07 Info (PHARMACY MONITORING -- do not chart) 1 each PRN DAILY PRN MC SEE COMMENTS; Start 01/24/20 at 16:15; Status UNV Info (PHARMACY MONITORING -- do not chart) 1 each PRN DAILY PRN MC SEE COMMENTS; Start 01/24/20 at 16:15 Ondansetron HCl (Zofran) 4 mg 1X ONCE IV Last administered on 01/24/20at 20:29; Start 01/24/20 at 16:15; Stop 01/24/20 at 16:36; Status DC Active Scripts Active Reported Zoloft (Sertraline Hcl) 100 Mg Tablet 1 Tab PO DAILY Zofran (Ondansetron Hcl) 4 Mg Tablet 1 Tab PO Q6HRS Zinc 50 Mg Tablet 1 Tab PO DAILY 30 Days Tramadol Hcl 50 Mg Tablet 50 Mg PO DAILY PRN Synthroid (Levothyroxine Sodium) 100 Mcg Tablet 1 Tab PO DAILY Senna (Sennosides) 8.6 Mg Tablet 8.6 Mg PO DAILY Ropinirole Hcl 1 Mg Tablet 1 Mg PO DAILY Ropinirole Hcl 0.25 Mg Tablet 0.25 Mg PO DAILY Renvela (Sevelamer Carbonate) 2.4 Gm Powd.pack 2.4 Gm PO TIDWMEALS Maribell-Prem Tablet (Folic Acid/Vitamin B Comp W-C) 0.8 Mg Tablet 1 Tab PO DAILY 30 Days Reglan (Metoclopramide Hcl) 10 Mg Tablet 1 Tab PO QID 30 Days before food and bedtime Clopidogrel (Clopidogrel Bisulfate) 75 Mg Tablet 1 Tab PO DAILY Pepcid (Famotidine) 20 Mg Tablet 20 Mg PO HS Novolog (Insulin Aspart) 100 Unit/1 Ml Cartridge 0-16 Unit SQ TIDAC Novolog (Insulin Aspart) 100 Unit/1 Ml Cartridge 10 Unit SQ TIDAC Niacor (Niacin) 500 Mg Tablet 1 Tab PO QHS 30 Days Miralax (Polyethylene Glycol 3350) 17 Gm Powd.pack 1 Packet PO Q3DAYS 2 Days dissolve in water Midodrine Hcl 10 Mg Tablet 10 Mg PO BID MWF Midodrine Hcl 10 Mg Tablet 10 Mg PO PRN Q8HRS PRN Metamucil Fiber Singles Packet (Psyllium Husk/Aspartame) 3.4 Gm Powd.pack 17 Gm PO BID Lumigan (Bimatoprost) 2.5 Ml Drops 1 Drop EACHEYE QHS Linzess (Linaclotide) 145 Mcg Capsule 145 Mcg PO DAILY07 Levemir (Insulin Detemir) 100 Unit/1 Ml Vial 25 Unit SQ DAILYWBKFT Levemir (Insulin Detemir) 100 Unit/1 Ml Vial 22 Unit SQ QHS Probiotic (Lactobacillus Acidophilus) 1 Each Capsule 1 Cap PO DAILY 10 Days Glucose Gel (Dextrose) 38 Gm Gel..gram. 38 Gm PO PRN PRN Gabapentin (Gabapentin) 100 Mg Capsule 100 Mg PO TID B-12 (Cyanocobalamin (Vitamin B-12)) 1,000 Mcg Tablet 1 Tab PO DAILY 30 Days Combigan Eye Drops (Brimonidine Tartrate/Timolol) 5 Ml Drops 5 Ml OP BID Cavilon One-Step Skin Care Lot (Glycerin/Dimeth/Surfactants) 236 Ml Lotion 236 Ml TP DAILY Atorvastatin Calcium 40 Mg Tablet 1 Tab PO DAILY Artificial Tears (Polyvinyl Alcohol) 15 Ml Drops 1 Drop EACHEYE BID 20 Days Allergies Allergies: Coded Allergies: methylphenidate (Verified Allergy, Intermediate, 12/29/17) acetaminophen (Verified Adverse Reaction, Intermediate, Nausea, 12/29/17) codeine (Verified Adverse Reaction, Intermediate, Nausea, 12/29/17) fentanyl (Verified Adverse Reaction, Intermediate, Nausea, 12/29/17) hydrocodone (Verified Adverse Reaction, Intermediate, Nausea, 12/29/17) morphine (Verified Adverse Reaction, Intermediate, Nausea, 12/29/17) oxycodone (Verified Adverse Reaction, Intermediate, Nausea, 12/29/17) ROS Review of System Unable to Obtain 2/2 AMS Physical Exam Physical Exam General: No acute distress, Other (obtunded, ) HEENT: Mucous membr. moist/pink, Other Lungs: Clear to auscultation Heart: S1S2, no murmurs Abdomen: Normal bowel sounds, Soft Extremities: No cyanosis, Normal pulses Skin: No rashes Neuro: Sensation intact Psych/Mental Status: Other (obtunded, ) Vital Signs Vital Signs Date Time Temp Pulse Resp B/P (MAP) Pulse Ox O2 Delivery O2 Flow Rate FiO2 01/24/20 19:30 97.8 82 18 140/81 (100) 98 Nasal Cannula 3.0 97.8 Assessment & Plan ESRD- On HD MWF Dialysis as ordered ,Augustine Ravi UTI/Sepsis - Abx per primary acute confusion, metabolic encephalopathy poss seizure disorder or post-ictal Labs Labs Laboratory Tests Test 01/23/20 12:20 01/23/20 13:00 01/23/20 22:53 01/24/20 00:52 White Blood Count 8.1 x10^3/uL (4.0-11.0) Red Blood Count 3.39 x10^6/uL (3.50-5.40) Hemoglobin 11.8 g/dL (12.0-15.5) Hematocrit 36.1 % (36.0-47.0) Mean Corpuscular Volume 107 fL (79-100) Mean Corpuscular Hemoglobin 35 pg (25-35) Mean Corpuscular Hemoglobin Concent 33 g/dL (31-37) Red Cell Distribution Width 14.8 % (11.5-14.5) Platelet Count 185 x10^3/uL (140-400) Neutrophils (%) (Auto) 83 % (31-73) Lymphocytes (%) (Auto) 9 % (24-48) Monocytes (%) (Auto) 6 % (0-9) Eosinophils (%) (Auto) 2 % (0-3) Basophils (%) (Auto) 0 % (0-3) Neutrophils # (Auto) 6.7 x10^3/uL (1.8-7.7) Lymphocytes # (Auto) 0.7 x10^3/uL (1.0-4.8) Monocytes # (Auto) 0.5 x10^3/uL (0.0-1.1) Eosinophils # (Auto) 0.1 x10^3/uL (0.0-0.7) Basophils # (Auto) 0.0 x10^3/uL (0.0-0.2) D-Dimer (Sarah) 1.01 ug/mlFEU (0.00-0.50) Sodium Level 134 mmol/L (136-145) Potassium Level 4.5 mmol/L (3.5-5.1) Chloride Level 97 mmol/L (98-107) Carbon Dioxide Level 28 mmol/L (21-32) Anion Gap 9 (6-14) Blood Urea Nitrogen 39 mg/dL (7-20) Creatinine 5.8 mg/dL (0.6-1.0) Estimated GFR (Cockcroft-Gault) 7.3 BUN/Creatinine Ratio 7 (6-20) Glucose Level 246 mg/dL (70-99) Calcium Level 8.9 mg/dL (8.5-10.1) Phosphorus Level 5.3 mg/dL (2.6-4.7) Magnesium Level 2.2 mg/dL (1.8-2.4) Total Bilirubin 0.3 mg/dL (0.2-1.0) Aspartate Amino Transf (AST/SGOT) 12 U/L (15-37) Alanine Aminotransferase (ALT/SGPT) 18 U/L (14-59) Alkaline Phosphatase 196 U/L (46-116) Lactate Dehydrogenase 137 U/L (81-234) Creatine Kinase 25 U/L (26-192) C-Reactive Protein, Quantitative 24.9 mg/L (0-3.3) Total Protein 7.7 g/dL (6.4-8.2) Albumin 3.0 g/dL (3.4-5.0) Albumin/Globulin Ratio 0.6 (1.0-1.7) Urine Collection Type U cath Urine Color Brown Urine Clarity Turbid Urine pH 7.5 (<5.0-8.0) Urine Specific [place] >=1.030 (1.000-1.030) Urine Protein >=300 mg/dL (NEG-TRACE) Urine Glucose (UA) Negative mg/dL (NEG) Urine Ketones (Stick) Negative mg/dL (NEG) Urine Blood Moderate (NEG) Urine Nitrite Negative (NEG) Urine Bilirubin Negative (NEG) Urine Urobilinogen Dipstick 0.2 mg/dL (0.2 mg/dL) Urine Leukocyte Esterase Large (NEG) Urine RBC /HPF (0-2) Urine WBC Tntc /HPF (0-4) Urine Bacteria Many /HPF (0-FEW) Glucose (Fingerstick) 92 mg/dL (70-99) 77 mg/dL (70-99) Test 01/24/20 03:03 01/24/20 04:34 01/24/20 04:54 01/24/20 07:34 Glucose (Fingerstick) 74 mg/dL (70-99) 88 mg/dL (70-99) Prothrombin Time 13.7 SEC (11.7-14.0) Prothromb Time International Ratio 1.1 (0.8-1.1) Thyroid Stimulating Hormone (TSH) 1.642 uIU/mL (0.358-3.74) White Blood Count 5.5 x10^3/uL (4.0-11.0) Red Blood Count 3.18 x10^6/uL (3.50-5.40) Hemoglobin 11.1 g/dL (12.0-15.5) Hematocrit 34.0 % (36.0-47.0) Mean Corpuscular Volume 107 fL (79-100) Mean Corpuscular Hemoglobin 35 pg (25-35) Mean Corpuscular Hemoglobin Concent 33 g/dL (31-37) Red Cell Distribution Width 14.6 % (11.5-14.5) Platelet Count 152 x10^3/uL (140-400) Neutrophils (%) (Auto) 74 % (31-73) Lymphocytes (%) (Auto) 14 % (24-48) Monocytes (%) (Auto) 9 % (0-9) Eosinophils (%) (Auto) 3 % (0-3) Basophils (%) (Auto) 0 % (0-3) Neutrophils # (Auto) 4.1 x10^3/uL (1.8-7.7) Lymphocytes # (Auto) 0.8 x10^3/uL (1.0-4.8) Monocytes # (Auto) 0.5 x10^3/uL (0.0-1.1) Eosinophils # (Auto) 0.2 x10^3/uL (0.0-0.7) Basophils # (Auto) 0.0 x10^3/uL (0.0-0.2) Sodium Level 136 mmol/L (136-145) Potassium Level 4.6 mmol/L (3.5-5.1) Chloride Level 99 mmol/L (98-107) Carbon Dioxide Level 27 mmol/L (21-32) Anion Gap 10 (6-14) Blood Urea Nitrogen 47 mg/dL (7-20) Creatinine 6.4 mg/dL (0.6-1.0) Estimated GFR (Cockcroft-Gault) 6.5 BUN/Creatinine Ratio 7 (-20) Glucose Level 83 mg/dL (70-99) Calcium Level 8.3 mg/dL (8.5-10.1) Total Bilirubin 0.4 mg/dL (0.2-1.0) Aspartate Amino Transf (AST/SGOT) 13 U/L (15-37) Alanine Aminotransferase (ALT/SGPT) 17 U/L (14-59) Alkaline Phosphatase 169 U/L (46-116) Total Protein 6.3 g/dL (6.4-8.2) Albumin 2.7 g/dL (3.4-5.0) Albumin/Globulin Ratio 0.8 (1.0-1.7) Test 01/24/20 11:31 01/24/20 19:53 Glucose (Fingerstick) 135 mg/dL (70-99) 106 mg/dL (70-99) Laboratory Tests Test 01/23/20 22:53 01/24/20 00:52 01/24/20 03:03 01/24/20 04:34 Glucose (Fingerstick) 92 mg/dL (70-99) 77 mg/dL (70-99) 74 mg/dL (70-99) Prothrombin Time 13.7 SEC (11.7-14.0) Prothromb Time International Ratio 1.1 (0.8-1.1) Thyroid Stimulating Hormone (TSH) 1.642 uIU/mL (0.358-3.74) Test 01/24/20 04:54 01/24/20 07:34 01/24/20 11:31 01/24/20 19:53 White Blood Count 5.5 x10^3/uL (4.0-11.0) Red Blood Count 3.18 x10^6/uL (3.50-5.40) Hemoglobin 11.1 g/dL (12.0-15.5) Hematocrit 34.0 % (36.0-47.0) Mean Corpuscular Volume 107 fL (79-100) Mean Corpuscular Hemoglobin 35 pg (25-35) Mean Corpuscular Hemoglobin Concent 33 g/dL (31-37) Red Cell Distribution Width 14.6 % (11.5-14.5) Platelet Count 152 x10^3/uL (140-400) Neutrophils (%) (Auto) 74 % (31-73) Lymphocytes (%) (Auto) 14 % (24-48) Monocytes (%) (Auto) 9 % (0-9) Eosinophils (%) (Auto) 3 % (0-3) Basophils (%) (Auto) 0 % (0-3) Neutrophils # (Auto) 4.1 x10^3/uL (1.8-7.7) Lymphocytes # (Auto) 0.8 x10^3/uL (1.0-4.8) Monocytes # (Auto) 0.5 x10^3/uL (0.0-1.1) Eosinophils # (Auto) 0.2 x10^3/uL (0.0-0.7) Basophils # (Auto) 0.0 x10^3/uL (0.0-0.2) Sodium Level 136 mmol/L (136-145) Potassium Level 4.6 mmol/L (3.5-5.1) Chloride Level 99 mmol/L (98-107) Carbon Dioxide Level 27 mmol/L (21-32) Anion Gap 10 (6-14) Blood Urea Nitrogen 47 mg/dL (7-20) Creatinine 6.4 mg/dL (0.6-1.0) Estimated GFR (Cockcroft-Gault) 6.5 BUN/Creatinine Ratio 7 (6-20) Glucose Level 83 mg/dL (70-99) Calcium Level 8.3 mg/dL (8.5-10.1) Total Bilirubin 0.4 mg/dL (0.2-1.0) Aspartate Amino Transf (AST/SGOT) 13 U/L (15-37) Alanine Aminotransferase (ALT/SGPT) 17 U/L (14-59) Alkaline Phosphatase 169 U/L (46-116) Total Protein 6.3 g/dL (6.4-8.2) Albumin 2.7 g/dL (3.4-5.0) Albumin/Globulin Ratio 0.8 (1.0-1.7) Glucose (Fingerstick) 88 mg/dL (70-99) 135 mg/dL (70-99) 106 mg/dL (70-99) Review All relevant outside records, renal labs, imaging studies, telemetry/EKG's were reviewed. NEVILLE ZIEGLER MD Jan 24, 2020 22:31
[2020-01-25] VITALS (9 sets, daily range): BP systolic 69–149; BP diastolic 45–85
[2020-01-25 03:08] LABS: HEMOGLOBIN A1C 6.6 % (4.8-5.6)
[2020-01-25] MEDS: HYDROCORTISONE SOD SUCC/PF 100 MG/2 ML VIAL. IVP SCH ×3 (06:22→21:50)
[2020-01-25] MEDS: METOCLOPRAMIDE 5 MG TABLET. PO SCH ×4 (07:30→21:50)
[2020-01-25] MEDS: INSULIN LISPRO 300 UNITS/3 ML VIAL. SQ SCH ×6 (08:00→18:51)
--- NOTE | 2020-01-25 10:21 | PDOC ---
SUBJECTIVE ROS More alert today , denies any complaints, OBJECTIVE Vital Signs Vital Signs Date Time Temp Pulse Resp B/P (MAP) Pulse Ox O2 Delivery O2 Flow Rate FiO2 01/25/20 03:00 98.0 74 18 140/59 (86) 100 Nasal Cannula 3.0 98.0 I & 0 Intake and Output 01/25/20 07:00 Intake Total 680 ml Output Total 200 ml Balance 480 ml Intake Oral 680 ml Output Urine Total 0 ml Emesis 200 ml # Bowel Movements 2 PHYSICAL EXAM Physical Exam General: No acute distress, HEENT: Mucous membr. moist/pink, Lungs: Clear to auscultation Heart: S1S2, no murmurs Abdomen: Normal bowel sounds, Soft, obese Extremities: No cyanosis, Skin: No rashes Neuro: grossly normal, Alert DIAGNOSIS/ASSESSMENT Assessment & Plan ESRD- On HD MWF @ [facility] under Dr. Clemente's care No indication for HD today UTI/Sepsis - Abx per primary acute confusion- Resolved poss seizure disorder or post-ictal CoVid negative COMMENT/RELEVANT DATA Meds Current Medications Medications (Trade) Dose Ordered Sig/Diana Start Time Stop Time Status Last Admin Dose Admin Acetaminophen (Tylenol) 325 mg PRN QID PRN 01/23/20 18:00 01/23/20 18:40 DC Albumin Human 200 ml @ 200 mls/hr 1X PRN PRN 01/24/20 16:15 01/24/20 22:14 DC Artificial Tears (Artificial Tears) 1 drop BID 01/23/20 21:00 01/24/20 20:12 1 DROP Atorvastatin Calcium (Lipitor) 40 mg DAILY 01/24/20 09:00 01/24/20 08:39 40 MG Brimonidine Tartrate (Alphagan) 1 drop BID 01/23/20 21:00 01/24/20 20:13 1 DROP Carvedilol (Coreg) 3.125 mg BIDWMEALS 01/23/20 21:00 01/23/20 18:40 DC Cefepime HCl (Maxipime) 1 gm Q24H 01/24/20 17:00 01/24/20 20:12 1 GM Clopidogrel Bisulfate (Plavix) 75 mg DAILY 01/24/20 09:00 01/24/20 08:38 75 MG Dextrose (Dextrose 50%-Water Syringe) 12.5 gm PRN Q15MIN PRN 01/23/20 19:00 Cancel Famotidine (Pepcid) 20 mg HS 01/23/20 21:00 01/24/20 20:28 20 MG Gabapentin (Neurontin) 100 mg TID 01/23/20 21:00 01/24/20 20:30 100 MG Heparin Sodium (Porcine) (Heparin Sodium) 5,000 unit Q12HR 01/23/20 21:00 01/24/20 20:31 5,000 UNIT Hydrocortisone Sodium Succinate (Solu-CORTEF) 100 mg Q8HRS 01/24/20 06:00 01/25/20 06:22 100 MG Info (PHARMACY MONITORING -- do not chart) 1 each PRN DAILY PRN 01/24/20 16:15 Insulin Glargine (Lantus Syringe) 25 unit DAILY 01/24/20 09:00 Insulin Human Lispro (HumaLOG) 0-9 UNITS TIDWMEALS 01/24/20 08:00 Lactobacillus Rhamnosus (Culturelle) 1 cap BID 01/23/20 21:00 01/24/20 20:29 1 CAP Latanoprost (Xalatan) 1 drop QHS 01/23/20 21:00 01/24/20 20:12 1 DROP Levothyroxine Sodium (Synthroid) 100 mcg DAILY 01/24/20 09:00 01/24/20 08:39 100 MCG Lorazepam (Ativan Inj) 1 mg PRN Q4HRS PRN 01/23/20 18:00 Lubiprostone (Amitiza) 24 mcg BIDWMEALS 01/24/20 08:00 01/24/20 08:37 24 MCG Metoclopramide HCl (Reglan) 2.5 mg QIDACHS 01/23/20 21:00 01/24/20 20:29 2.5 MG Midodrine (Proamatine) 10 mg QMWF@1800 01/24/20 18:00 Niacin (Niaspan) 500 mg QHS 01/23/20 21:00 01/24/20 20:31 500 MG Non-Formulary Medication (Glycerin/Dimeth/ Surfactants (Cavilon One-Step Skin Care Lot)) 236 ml DAILY 01/24/20 09:00 01/23/20 19:04 DC Ondansetron HCl (Zofran Odt) 4 mg PRN Q6HRS PRN 01/23/20 19:15 01/24/20 16:09 DC Ondansetron HCl (Zofran) 4 mg 1X ONCE 01/24/20 16:15 01/24/20 16:36 DC 01/24/20 20:29 4 MG Pantoprazole Sodium (Protonix) 40 mg DAILY07 01/24/20 07:00 01/23/20 18:40 DC Polyethylene Glycol (miraLAX PACKET) 17 gm Q3DAYS 01/26/20 09:00 Psyllium Hydrophilic Mucilloid (Metamucil Fiber Packet) 1 pkt BID 01/24/20 21:00 01/24/20 20:28 1 PKT Ropinirole HCl (Requip) 1 mg QHS 01/23/20 21:00 01/24/20 20:28 1 MG Sennosides (Senna) 8.6 mg DAILY 01/24/20 09:00 01/24/20 08:37 8.6 MG Sertraline HCl (Zoloft) 100 mg DAILY 01/24/20 09:00 01/24/20 08:38 100 MG Sevelamer Carbonate (Renvela) 2.4 gm TIDWMEALS 01/24/20 08:00 01/24/20 20:28 2.4 GM Sodium Chloride 1,000 ml @ 400 mls/hr Q2H30M PRN 01/24/20 16:08 01/25/20 04:07 DC Timolol Maleate (Timoptic 0.5% Oph) 1 drop BID 01/23/20 21:00 01/24/20 20:13 1 DROP Tramadol HCl (Ultram) 50 mg PRN DAILY PRN 01/23/20 18:45 Vancomycin HCl (Vanco Per Pharmacy) 1 each PRN DAILY PRN 01/24/20 00:30 01/24/20 01:12 1 EACH Vancomycin HCl (Vancomycin Random Level) 1 each 1X ONCE 01/26/20 05:00 01/26/20 05:01 Vancomycin HCl 2 gm/Sodium Chloride 500 ml @ 250 mls/hr 1X ONCE 01/24/20 01:00 01/24/20 02:59 DC 01/24/20 00:58 250 MLS/HR Vitamin B Complex/ Vitamin C (Maribell-Prem) 1 tab DAILY 01/24/20 09:00 01/24/20 08:37 1 TAB Vitamin D (Vitamin D3) 5,000 unit DAILY 01/24/20 09:00 01/23/20 18:40 DC Zinc Sulfate (Orazinc) 220 mg DAILY 01/24/20 09:00 01/24/20 08:37 220 MG Lab Laboratory Tests Test 01/24/20 11:31 01/24/20 19:53 01/25/20 08:14 Glucose (Fingerstick) 135 mg/dL (70-99) 106 mg/dL (70-99) 107 mg/dL (70-99) Results All relevant outside records, renal labs, imaging studies, telemetry/EKG's were reviewed. Justicifation of Admission Dx: Justifications for Admission: Justification of Admission Dx: Yes NEVILLE ZIEGLER MD Jan 25, 2020 10:21
[2020-01-25] MEDS: SEVELAMER CARBONATE 2.4 GM PACKET. PO SCH ×3 (10:26→17:00)
[2020-01-25] MEDS: LACTOBACILLUS RHAMNOSUS GG 1 CAPSULE. PO SCH ×2 (10:27→21:49)
[2020-01-25] MEDS: SERTRALINE 50 MG TABLET. PO SCH (10:27)
[2020-01-25] MEDS: LEVOTHYROXINE 100 MCG TABLET PO SCH (10:27)
[2020-01-25] MEDS: PSYLLIUM HUSK (SUGAR FREE) 1 PKT PACKET PO SCH ×2 (10:27→21:48)
[2020-01-25] MEDS: SENNOSIDES 8.6 MG TABLET PO SCH (10:27)
[2020-01-25] MEDS: CLOPIDOGREL BISULFATE 75 MG TABLET PO SCH (10:27)
[2020-01-25] MEDS: ZINC SULFATE 220 MG CAPSULE. PO SCH (10:27)
[2020-01-25] MEDS: FOLIC/VIT B COMP W-C (RENAL) TABLET. PO SCH (10:28)
[2020-01-25] MEDS: LUBIPROSTONE 24 MCG CAPSULE PO SCH ×2 (10:29→17:00)
[2020-01-25] MEDS: ATORVASTATIN CALCIUM 40 MG TABLET. PO SCH (10:29)
[2020-01-25] MEDS: rOPINIRole 0.25 MG TABLET. PO SCH (10:29)
[2020-01-25] MEDS: GABAPENTIN 100 MG CAPSULE. PO SCH ×3 (10:29→21:49)
[2020-01-25] MEDS: TIMOLOL 0.5% OPHTH SOLUTION 5ML BOTTLE. OU SCH ×2 (10:31→21:48)
[2020-01-25] MEDS: HEPARIN for SUB-Q USE 5,000 UNIT/ML VIAL. SQ SCH ×2 (10:31→21:57)
[2020-01-25] MEDS: POLYVINYL ALCOHOL 1.4% OPHTH SOLUTION 15ML BOTTLE. OU SCH ×2 (10:31→21:48)
[2020-01-25] MEDS: BRIMONIDINE 0.2% OPHTH SOLUTION 5ML BOTTLE. OU SCH ×2 (10:31→21:48)
[2020-01-25] MEDS: INSULIN GLARGINE SYRINGE. SQ SCH ×2 (10:44→21:00)
--- NOTE | 2020-01-25 10:54 | NUR ---
SW following. Reviewed chart and spoke with RN. Coordinated care with Mirian from [facility] where pt resides. Pt will discharge to SNU at [facility] when stable. LUIS FERNANDO faxed clinicals, (fax). Pt on 3 l 02 and IV Vancomycin. Pt did not have 02 prior to this admission per Mirian. Pt does dialysis on MWF at [facility], , (fax). LUIS FERNANDO to continue following.
--- NOTE | 2020-01-25 11:09 | PDOC ---
[employer] PROGRESS NOTE Chief Complaint Chief Complaint sepsis, UTI acute confusion, metabolic encephalopathy ESRD poss seizure disorder or post-ictal History of Present Illness History of Present Illness 01/25/2020 Patient seen and examined She is doing better but still little confused Discussed with RN Chart review Vitals/I&O Vitals/I&O: Vital Signs Date Time Temp Pulse Resp B/P (MAP) Pulse Ox O2 Delivery O2 Flow Rate FiO2 01/25/20 03:00 98.0 74 18 140/59 (86) 100 Nasal Cannula 3.0 98.0 I & O 01/24/20 01/24/20 01/25/20 15:00 23:00 07:00 Intake Total 200 ml 240 ml 240 ml Output Total 200 ml 0 ml Balance 0 ml 240 ml 240 ml Physical Exam General: No acute distress, Other (Pleasantly confused this might be her baseline?) Heart: Regular rate Lungs: Clear, Other Abdomen: Normal bowel sounds, Soft Extremities: No cyanosis, Normal pulses Skin: No rashes Labs Labs: Laboratory Tests Test 01/24/20 11:31 01/24/20 19:53 01/25/20 08:14 01/25/20 11:01 Glucose (Fingerstick) 135 mg/dL (70-99) 106 mg/dL (70-99) 107 mg/dL (70-99) 249 mg/dL (70-99) Assessment and Plan Assessmemt and Plan Problems Medical Problems: (1) Altered mental status Status: Acute sepsis, UTI acute confusion, metabolic encephalopathy poss seizure disorder or post-ictal Plan IV fluids IV antibiotics Home meds DVT prophylaxis Full code Probable discharge in a.m. back to her original living situation Comment Review of Relevant I have reviewed the following items dat (where applicable) has been applied. Medications: Current Medications Medications (Trade) Dose Ordered Sig/Diana Route PRN Reason Start Time Stop Time Status Last Admin Dose Admin Cefepime HCl (Maxipime) 1 gm Q24H IVP 01/24/20 17:00 01/24/20 20:12 Midodrine (Proamatine) 10 mg QMWF@1300 PO 01/24/20 13:00 01/24/20 12:58 Psyllium Hydrophilic Mucilloid (Metamucil Fiber Packet) 1 pkt BID PO 01/24/20 21:00 01/25/20 10:27 Ondansetron HCl (Zofran) 4 mg 1X ONCE IV 01/24/20 16:15 01/24/20 16:36 DC 01/24/20 20:29 Justicifation of Admission Dx: Justifications for Admission: Justification of Admission Dx: Yes DIDIER ROY III DO Jan 25, 2020 11:09
[2020-01-25] MEDS: VANCOMYCIN PER PHARMACY MC PRN (13:53)
--- NOTE | 2020-01-25 14:34 | EKG ---
[facility] [address] [place] [address] Test Date: 2020-01-23 Test Time: 12:16:02 Pat Name: LAINE KING Department: Room: 4 Gender: F Executive Producer: : [id number] Requested By: LOI MATHIS Order Number: [id number] Reading MD: Measurements Intervals [place] Rate: 60 P: 39 TN: 344 QRS: -48 QRSD: 128 T: 77 QT: 448 QTc: 453 Interpretive Statements SINUS RHYTHM PROLONGED TN INTERVAL ABNORMAL LEFT AXIS DEVIATION NON SPECIFIC INTRAVENTRICULAR BLOCK ABNORMAL ECG RI6.01 No previous ECG available for comparison
[2020-01-25] MEDS ORDERED: IV NORMAL SALINE 500ML BAG 500 ML IV ONE ×2 (16:45→19:00)
[2020-01-25] MEDS: CEFEPIME HCL IV Push 1 GM VIAL. IVP SCH (17:00)
[2020-01-25] MEDS: LATANOPROST 0.005% OPHTH SOLUTION 2.5ML BOTTLE. OU SCH (21:48)
[2020-01-25] MEDS: FAMOTIDINE 20 MG TABLET. PO SCH (21:49)
[2020-01-25] MEDS: NIACIN ER 250 MG CAPSULE.ER PO SCH (21:49)
[2020-01-25] MEDS: rOPINIRole 1 MG TABLET. PO SCH (21:49)
[2020-01-26 03:10] VITALS: BP 174/84
[2020-01-26] MEDS ORDERED: VANCOMYCIN RANDOM LEVEL. MC ONE (05:00)
[2020-01-26 05:33] LABS: CALCIUM 8.9 mg/dL (8.5-10.1); CREATININE 5.9 mg/dL (0.6-1.0); GFR 7.2
[2020-01-26] MEDS: HYDROCORTISONE SOD SUCC/PF 100 MG/2 ML VIAL. IVP SCH ×3 (06:15→22:19)
[2020-01-26] MEDS: MIDODRINE 5 MG TABLET PO SCH ×3 (06:15→17:41)
[2020-01-26 07:00] VITALS: BP 177/67
--- NOTE | 2020-01-26 08:07 | PDOC ---
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 According to nursing facility patient is normally fully alert and oriented. They state that they found her unresponsive in bed. They called an ambulance and on the way here patient became more awake and alert. She then was able to tell us her name and location but was otherwise disoriented. She was moving all extremities. She was unable to provide us any history. Her only complaint was fatigue. She then became unresponsive again. On imaging found with fecal impaction. UA positive for blood leukocyte esterase protein. Labs otherwise consistent with ESRD, NA 131, WBC 5.5, Hb 11.1, platelets 152 MCV is 107 Afebrile. WBC 5.5. Urine culture pending. Going to dialysis today she has no complaints. Very pleasantly confused. Vitals Vitals Vital Signs Date Time Temp Pulse Resp B/P (MAP) Pulse Ox O2 Delivery O2 Flow Rate FiO2 01/26/20 06:15 62 174/84 01/26/20 03:10 98.2 22 96 Nasal Cannula 3.5 98.2 Physical Exam General: No acute distress, Other (Pleasantly confused this might be her baseline?) Heart: Regular rate Lungs: Clear, Other Abdomen: Normal bowel sounds, Soft Extremities: No cyanosis, Normal pulses Skin: No rashes Labs LABS Laboratory Tests Test 01/25/20 08:14 01/25/20 11:01 01/25/20 18:22 01/26/20 04:30 Glucose (Fingerstick) 107 mg/dL (70-99) 249 mg/dL (70-99) 202 mg/dL (70-99) Sodium Level 131 mmol/L (136-145) Potassium Level 5.0 mmol/L (3.5-5.1) Chloride Level 94 mmol/L (98-107) Carbon Dioxide Level 30 mmol/L (21-32) Anion Gap 7 (6-14) Blood Urea Nitrogen 49 mg/dL (7-20) Creatinine 5.9 mg/dL (0.6-1.0) Estimated GFR (Cockcroft-Gault) 7.2 Glucose Level 193 mg/dL (70-99) Calcium Level 8.9 mg/dL (8.5-10.1) Troponin I Quantitative 0.019 ng/mL (0.000-0.055) Random Vancomycin Level 19.2 mcg/mL Assessment and Plan Assessmemt and Plan Problems Medical Problems: (1) Altered mental status Status: Acute Comment Review of Relevant I have reviewed the following items dat (where applicable) has been applied. Labs Laboratory Tests Test 01/24/20 11:31 01/24/20 19:53 01/25/20 08:14 01/25/20 11:01 Glucose (Fingerstick) 135 mg/dL (70-99) 106 mg/dL (70-99) 107 mg/dL (70-99) 249 mg/dL (70-99) Test 01/25/20 18:22 01/26/20 04:30 Glucose (Fingerstick) 202 mg/dL (70-99) Sodium Level 131 mmol/L (136-145) Potassium Level 5.0 mmol/L (3.5-5.1) Chloride Level 94 mmol/L (98-107) Carbon Dioxide Level 30 mmol/L (21-32) Anion Gap 7 (6-14) Blood Urea Nitrogen 49 mg/dL (-) Creatinine 5.9 mg/dL (0.6-1.0) Estimated GFR (Cockcroft-Gault) 7.2 Glucose Level 193 mg/dL (70-99) Calcium Level 8.9 mg/dL (8.5-10.1) Troponin I Quantitative 0.019 ng/mL (0.000-0.055) Random Vancomycin Level 19.2 mcg/mL Laboratory Tests Test 01/25/20 08:14 01/25/20 11:01 01/25/20 18:22 01/26/20 04:30 Glucose (Fingerstick) 107 mg/dL (70-99) 249 mg/dL (70-99) 202 mg/dL (70-99) Sodium Level 131 mmol/L (136-145) Potassium Level 5.0 mmol/L (3.5-5.1) Chloride Level 94 mmol/L (98-107) Carbon Dioxide Level 30 mmol/L (21-32) Anion Gap 7 (6-14) Blood Urea Nitrogen 49 mg/dL (7-20) Creatinine 5.9 mg/dL (0.6-1.0) Estimated GFR (Cockcroft-Gault) 7.2 Glucose Level 193 mg/dL (70-99) Calcium Level 8.9 mg/dL (8.5-10.1) Troponin I Quantitative 0.019 ng/mL (0.000-0.055) Random Vancomycin Level 19.2 mcg/mL Microbiology 01/23/20 Blood Culture - Preliminary, Resulted NO GROWTH AFTER 2 DAYS Medications Current Medications Lorazepam (Ativan Inj) 1 mg 1X ONCE IVP Last administered on 01/23/20at 13:14; Start 01/23/20 at 12:30; Stop 01/23/20 at 12:31; Status DC Cefepime HCl (Maxipime) 1 gm 1X ONCE IVP Last administered on 01/23/20at 14:26; Start 01/23/20 at 14:30; Stop 01/23/20 at 14:31; Status DC Cefepime HCl (Maxipime) 1 gm Q24H IVP Last administered on 01/25/20at 17:00; Start 01/24/20 at 17:00 Insulin Human Lispro (HumaLOG) 0-7 UNITS TIDWMEALS SQ ; Start 01/24/20 at 08:00; Stop 01/23/20 at 18:40; Status DC Dextrose (Dextrose 50%-Water Syringe) 12.5 gm PRN Q15MIN PRN IV SEE COMMENTS; Start 01/23/20 at 18:00 Acetaminophen (Tylenol) 325 mg PRN QID PRN PO MILD PAIN / TEMP > 100.3'F; Start 01/23/20 at 18:00; Stop 01/23/20 at 18:40; Status DC Carvedilol (Coreg) 3.125 mg BIDWMEALS PO ; Start 01/23/20 at 21:00; Stop 01/23/20 at 18:40; Status DC Clopidogrel Bisulfate (Plavix) 75 mg DAILY PO ; Start 01/24/20 at 09:00; Stop 01/23/20 at 18:40; Status DC Gabapentin (Neurontin) 100 mg TID PO ; Start 01/23/20 at 21:00; Stop 01/23/20 at 18:40; Status DC Levothyroxine Sodium (Synthroid) 100 mcg DAILY PO ; Start 01/24/20 at 09:00; Stop 01/23/20 at 18:40; Status DC Midodrine (Proamatine) 2.5 mg DAILY PO ; Start 01/24/20 at 09:00; Stop 01/23/20 at 18:40; Status DC Ondansetron HCl (Zofran Odt) 4 mg PRN Q6HRS PRN PO NAUSEA/VOMITING; Start 01/23/20 at 18:00; Stop 01/23/20 at 18:40; Status DC Pantoprazole Sodium (Protonix) 40 mg DAILY07 PO ; Start 01/24/20 at 07:00; Stop 01/23/20 at 18:40; Status DC Polyethylene Glycol (miraLAX PACKET) 17 gm DAILY PO ; Start 01/24/20 at 09:00; Stop 01/23/20 at 18:40; Status DC Sevelamer Carbonate (Renvela) 2,400 mg TIDWMEALS PO ; Start 01/24/20 at 08:00; Stop 01/23/20 at 18:40; Status DC Zinc Sulfate (Orazinc) 220 mg DAILY PO ; Start 01/24/20 at 09:00; Stop 01/23/20 at 18:40; Status DC Vitamin D (Vitamin D3) 5,000 unit DAILY PO ; Start 01/24/20 at 09:00; Stop 01/23/20 at 18:40; Status DC Lorazepam (Ativan Inj) 1 mg PRN Q4HRS PRN IVP ANXIETY / AGITATION; Start 01/23/20 at 18:00 Heparin Sodium (Porcine) (Heparin Sodium) 5,000 unit Q12HR SQ Last administered on 01/25/20at 21:57; Start 01/23/20 at 21:00 Atorvastatin Calcium (Lipitor) 40 mg DAILY PO Last administered on 01/25/20at 10:29; Start 01/24/20 at 09:00 Clopidogrel Bisulfate (Plavix) 75 mg DAILY PO Last administered on 01/25/20at 10:27; Start 01/24/20 at 09:00 Famotidine (Pepcid) 20 mg HS PO Last administered on 01/25/20at 21:49; Start 01/23/20 at 21:00 Vitamin B Complex/ Vitamin C (Maribell-Prem) 1 tab DAILY PO Last administered on 01/25/20 10:28; Start 01/24/20 at 09:00 Gabapentin (Neurontin) 100 mg TID PO Last administered on 01/25/20 21:49; Start 01/23/20 at 21:00 Levothyroxine Sodium (Synthroid) 100 mcg DAILY PO Last administered on 01/25/20 10:27; Start 01/24/20 at 09:00 Metoclopramide HCl (Reglan) 2.5 mg QIDACHS PO Last administered on 01/25/20 21:50; Start 01/23/20 at 21:00 Polyethylene Glycol (miraLAX PACKET) 17 gm Q3DAYS PO ; Start 01/26/20 at 09:00 Artificial Tears (Artificial Tears) 1 drop BID OU Last administered on 01/25/20 21:48; Start 01/23/20 at 21:00 Psyllium Hydrophilic Mucilloid (Metamucil Fiber Packet) 17 pkt BID PO ; Start 01/23/20 at 21:00; Stop 01/24/20 at 11:08; Status DC Ropinirole HCl (Requip) 0.25 mg DAILY PO Last administered on 01/25/20 10:29; Start 01/24/20 at 09:00 Ropinirole HCl (Requip) 1 mg QHS PO Last administered on 01/25/20 21:49; Start 01/23/20 at 21:00 Sennosides (Senna) 8.6 mg DAILY PO Last administered on 01/25/20 10:27; Start 01/24/20 at 09:00 Sevelamer Carbonate (Renvela) 2.4 gm TIDWMEALS PO Last administered on 01/25/20 17:00; Start 01/24/20 at 08:00 Tramadol HCl (Ultram) 50 mg PRN DAILY PRN PO PAIN; Start 01/23/20 at 18:45 Latanoprost (Xalatan) 1 drop QHS OU Last administered on 01/25/20 21:48; Start 01/23/20 at 21:00 Timolol Maleate (Timoptic 0.5% [facility]) 1 drop BID OU Last administered on 01/25/20 21:48; Start 01/23/20 at 21:00 Non-Formulary Medication (Glycerin/Dimeth/ Surfactants (Cavilon One-Step Skin Care Lot)) 236 ml DAILY TP ; Start 01/24/20 at 09:00; Stop 01/23/20 at 19:04; Status DC Insulin Human Lispro (HumaLOG) 10 units TIDWMEALS SQ Last administered on 01/25/20 18:51; Start 01/24/20 at 08:00 Insulin Glargine (Lantus Syringe) 22 unit QHS SQ Last administered on 01/25/20at 21:00; Start 01/23/20 at 21:00 Insulin Glargine (Lantus Syringe) 25 unit DAILY SQ Last administered on 01/25/20 10:44; Start 01/24/20 at 09:00 Lactobacillus Rhamnosus (Culturelle) 1 cap BID PO Last administered on 01/25/20 21:49; Start 01/23/20 at 21:00 Lubiprostone (Amitiza) 24 mcg BIDWMEALS PO Last administered on 01/25/20at 17:00; Start 01/24/20 at 08:00 Midodrine (Proamatine) 10 mg QMWF@0700 PO ; Start 01/24/20 at 07:00 Midodrine (Proamatine) 10 mg PRN Q8HRS PRN PO HYPOTENSION Last administered on 01/25/20at 14:21; Start 01/24/20 at 07:00 Niacin (Niaspan) 500 mg QHS PO Last administered on 01/25/20 21:49; Start 01/23/20 at 21:00 Ondansetron HCl (Zofran Odt) 4 mg PRN Q6HRS PRN PO NAUSEA/VOMITING; Start 01/23/20 at 19:15; Stop 01/24/20 at 16:09; Status DC Zinc Sulfate (Orazinc) 220 mg DAILY PO Last administered on 01/25/20 10:27; Start 01/24/20 at 09:00 Sertraline HCl (Zoloft) 100 mg DAILY PO Last administered on 01/25/20at 10:27; Start 01/24/20 at 09:00 Insulin Human Lispro (HumaLOG) 0-9 UNITS TIDWMEALS SQ Last administered on 7/7/20at 18:51; Start 01/24/20 at 08:00 Dextrose (Dextrose 50%-Water Syringe) 12.5 gm PRN Q15MIN PRN IV SEE COMMENTS; Start 01/23/20 at 19:00; Status Cancel Brimonidine Tartrate (Alphagan) 1 drop BID OU Last administered on 01/25/20at 21:48; Start 01/23/20 at 21:00 Midodrine (Proamatine) 10 mg QMWF@1300 PO Last administered on 01/24/20at 12:58; Start 01/24/20 at 13:00 Midodrine (Proamatine) 10 mg QMWF@1800 PO ; Start 01/24/20 at 18:00 Vancomycin HCl (Vanco Per Pharmacy) 1 each PRN DAILY PRN MC SEE COMMENTS Last administered on 01/25/20at 13:53; Start 01/24/20 at 00:30 Hydrocortisone Sodium Succinate (Solu-CORTEF) 100 mg Q8HRS IVP Last administered on 01/26/20at 06:15; Start 01/24/20 at 06:00 Vancomycin HCl 2 gm/Sodium Chloride 500 ml @ 250 mls/hr 1X ONCE IV Last administered on 01/24/20at 00:58; Start 01/24/20 at 01:00; Stop 01/24/20 at 02:59; Status DC Vancomycin HCl (Vancomycin Random Level) 1 each 1X ONCE MC Last administered on 01/26/20at 05:00; Start 01/26/20 at 05:00; Stop 01/26/20 at 05:01; Status DC Psyllium Hydrophilic Mucilloid (Metamucil Fiber Packet) 1 pkt BID PO Last administered on 01/25/20at 21:48; Start 01/24/20 at 21:00 Ondansetron HCl (Zofran) 4 mg STK-MED ONCE .ROUTE ; Start 01/24/20 at 16:03; Stop 01/24/20 at 16:03; Status DC Ondansetron HCl (Zofran) 4 mg PRN Q8HRS PRN IVP NAUSEA/VOMITING; Start 01/24/20 at 16:15 Sodium Chloride 1,000 ml @ 1,000 mls/hr Q1H PRN IV hypotension; Start 01/24/20 at 16:08; Stop 01/24/20 at 22:07; Status DC Albumin Human 200 ml @ 200 mls/hr 1X PRN PRN IV Hypotension; Start 01/24/20 at 16:15; Stop 01/24/20 at 22:14; Status DC Sodium Chloride 1,000 ml @ 400 mls/hr Q2H30M PRN IV PATENCY; Start 01/24/20 at 16:08; Stop 01/25/20 at 04:07; Status DC Info (PHARMACY MONITORING -- do not chart) 1 each PRN DAILY PRN MC SEE COMMENTS; Start 01/24/20 at 16:15; Status UNV Info (PHARMACY MONITORING -- do not chart) 1 each PRN DAILY PRN MC SEE COMMENTS ; Start 01/24/20 at 16:15 Ondansetron HCl (Zofran) 4 mg 1X ONCE IV Last administered on 01/24/20at 20:29; Start 01/24/20 at 16:15; Stop 01/24/20 at 16:36; Status DC Sodium Chloride 500 ml @ 500 mls/hr 1X ONCE IV Last administered on 01/25/20at 16:45; Start 01/25/20 at 16:45; Stop 01/25/20 at 17:44; Status DC Sodium Chloride 500 ml @ 500 mls/hr 1X ONCE IV ; Start 01/25/20 at 19:00; Stop 01/25/20 at 19:59; Status DC Active Scripts Active Reported Zoloft (Sertraline Hcl) 100 Mg Tablet 1 Tab PO DAILY Zofran (Ondansetron Hcl) 4 Mg Tablet 1 Tab PO Q6HRS Zinc 50 Mg Tablet 1 Tab PO DAILY 30 Days Tramadol Hcl 50 Mg Tablet 50 Mg PO DAILY PRN Synthroid (Levothyroxine Sodium) 100 Mcg Tablet 1 Tab PO DAILY Senna (Sennosides) 8.6 Mg Tablet 8.6 Mg PO DAILY Ropinirole Hcl 1 Mg Tablet 1 Mg PO DAILY Ropinirole Hcl 0.25 Mg Tablet 0.25 Mg PO DAILY Renvela (Sevelamer Carbonate) 2.4 Gm Powd.pack 2.4 Gm PO TIDWMEALS Maribell-Prem Tablet (Folic Acid/Vitamin B Comp W-C) 0.8 Mg Tablet 1 Tab PO DAILY 30 Days Reglan (Metoclopramide Hcl) 10 Mg Tablet 1 Tab PO QID 30 Days before food and bedtime Clopidogrel (Clopidogrel Bisulfate) 75 Mg Tablet 1 Tab PO DAILY Pepcid (Famotidine) 20 Mg Tablet 20 Mg PO HS Novolog (Insulin Aspart) 100 Unit/1 Ml Cartridge 0-16 Unit SQ TIDAC Novolog (Insulin Aspart) 100 Unit/1 Ml Cartridge 10 Unit SQ TIDAC Niacor (Niacin) 500 Mg Tablet 1 Tab PO QHS 30 Days Miralax (Polyethylene Glycol 3350) 17 Gm Powd.pack 1 Packet PO Q3DAYS 2 Days dissolve in water Midodrine Hcl 10 Mg Tablet 10 Mg PO BID MWF Midodrine Hcl 10 Mg Tablet 10 Mg PO PRN Q8HRS PRN Metamucil Fiber Singles Packet (Psyllium Husk/Aspartame) 3.4 Gm Powd.pack 17 Gm PO BID Lumigan (Bimatoprost) 2.5 Ml Drops 1 Drop EACHEYE QHS Linzess (Linaclotide) 145 Mcg Capsule 145 Mcg PO DAILY07 Levemir (Insulin Detemir) 100 Unit/1 Ml Vial 25 Unit SQ [id number] Levemir (Insulin Detemir) 100 Unit/1 Ml Vial 22 Unit SQ QHS Probiotic (Lactobacillus Acidophilus) 1 Each Capsule 1 Cap PO DAILY 10 Days Glucose Gel (Dextrose) 38 Gm Gel..gram. 38 Gm PO PRN PRN Gabapentin (Gabapentin) 100 Mg Capsule 100 Mg PO TID B-12 (Cyanocobalamin (Vitamin B-12)) 1,000 Mcg Tablet 1 Tab PO DAILY 30 Days Combigan Eye Drops (Brimonidine Tartrate/Timolol) 5 Ml Drops 5 Ml OP BID Cavilon One-Step Skin Care Lot (Glycerin/Dimeth/Surfactants) 236 Ml Lotion 236 Ml TP DAILY Atorvastatin Calcium 40 Mg Tablet 1 Tab PO DAILY Artificial Tears (Polyvinyl Alcohol) 15 Ml Drops 1 Drop EACHEYE BID 20 Days Vitals/I & O Vital Sign - Last 24 Hours 01/25/20 01/25/20 01/25/20 01/25/20 11:00 14:21 15:00 15:45 Temp 96.5 97.1 96.5 97.1 Pulse 65 59 64 65 Resp 20 22 B/P (MAP) 100/45 (63) 67/41 74/47 (56) 69/48 (55) Pulse Ox 96 92 O2 Delivery Nasal Cannula Nasal Cannula O2 Flow Rate 3.0 3.5 01/25/20 01/25/20 01/25/20 01/25/20 17:30 18:45 19:45 20:00 Temp 98.1 98.1 Pulse 64 64 67 Resp 22 B/P (MAP) 78/45 (56) 134/51 (78) 149/59 (89) Pulse Ox 95 O2 Delivery Nasal Cannula Nasal Cannula O2 Flow Rate 4.0 3.5 01/25/20 01/26/20 01/26/20 23:02 03:10 06:15 Temp 96.7 98.2 96.7 98.2 Pulse 73 62 62 Resp 20 22 B/P (MAP) 130/85 (100) 174/84 (114) 174/84 Pulse Ox 100 96 O2 Delivery Nasal Cannula Nasal Cannula O2 Flow Rate 3.5 3.5 Intake and Output 01/25/20 01/25/20 01/26/20 15:00 23:00 07:00 Intake Total 250 ml 0 ml 340 ml Balance 250 ml 0 ml 340 ml Justicifation of Admission Dx: Justifications for Admission: Justification of Admission Dx: Yes DANIELLE MAYORGA MD Jan 26, 2020 08:07
--- NOTE | 2020-01-26 08:15 | PDOC ---
Infectious Disease Note Vital Sign Vital Signs Vital Signs Date Time Temp Pulse Resp B/P (MAP) Pulse Ox O2 Delivery O2 Flow Rate FiO2 01/26/20 06:15 62 174/84 01/26/20 03:10 98.2 22 96 Nasal Cannula 3.5 98.2 Labs Lab Laboratory Tests Test 01/25/20 08:14 01/25/20 11:01 01/25/20 18:22 01/26/20 04:30 Glucose (Fingerstick) 107 mg/dL (70-99) 249 mg/dL (70-99) 202 mg/dL (70-99) Sodium Level 131 mmol/L (136-145) Potassium Level 5.0 mmol/L (3.5-5.1) Chloride Level 94 mmol/L (98-107) Carbon Dioxide Level 30 mmol/L (21-32) Anion Gap 7 (6-14) Blood Urea Nitrogen 49 mg/dL (-20) Creatinine 5.9 mg/dL (0.6-1.0) Estimated GFR (Cockcroft-Gault) 7.2 Glucose Level 193 mg/dL (70-99) Calcium Level 8.9 mg/dL (8.5-10.1) Troponin I Quantitative 0.019 ng/mL (0.000-0.055) Random Vancomycin Level 19.2 mcg/mL Test 01/26/20 08:07 Glucose (Fingerstick) 158 mg/dL (70-99) Micro CT 01/22 IMPRESSION: CHEST: 1. Degraded study due to motion artifact. 2. No sequela of trauma seen throughout the chest. 3. Heterogeneous attenuation pattern of the lungs favored mostly on account of scarring and atelectasis. An atypical infectious process is difficult to fully excluded but considered less likely and less clinical findings suggest otherwise. Abdomen/pelvis: 1. Degraded study due to motion, patient body habitus and streak artifact from the patient's arms. 2. No acute abnormality seen throughout the abdomen or pelvis. 3. Distention of the rectum with well-formed stool. Mild surrounding wall thickening and faint pericolonic inflammation suggesting some inflammation due to the extent of impacted stool. Soft tissue fullness at the posterior wall of the anorectal region where the lumen is somewhat tented. A colo-cutaneous fistula would be unusual but recommend correlation with patient history and direct inspection if needed (image 101 series 4 and image 37 series 9). 4. Senescent/chronic findings as detailed in the body the report. Microbiology 01/23/20 Blood Culture - Preliminary, Resulted NO GROWTH AFTER 2 DAYS Objective Assessment UTI - POA 01/22 CKD on HD DM Fecal retention POA - + BM H/o C-diff Plan Plan of Care Cont Vanc and Cefepime F/u labs and cults Hope to adjust to po when UTI bacteria ID and sens available D/w nursing Than k you # [id number] LACHELLE RIVERA MD Jan 26, 2020 08:15
[2020-01-26] MEDS: POLYETHYLENE GLYCOL 3350 17 GM PACKET. PO SCH (08:31)
[2020-01-26] MEDS: FOLIC/VIT B COMP W-C (RENAL) TABLET. PO SCH (08:31)
[2020-01-26] MEDS: PSYLLIUM HUSK (SUGAR FREE) 1 PKT PACKET PO SCH ×2 (08:31→22:20)
[2020-01-26] MEDS: CLOPIDOGREL BISULFATE 75 MG TABLET PO SCH (08:31)
[2020-01-26] MEDS: LACTOBACILLUS RHAMNOSUS GG 1 CAPSULE. PO SCH ×2 (08:32→22:16)
[2020-01-26] MEDS: ATORVASTATIN CALCIUM 40 MG TABLET. PO SCH (08:32)
[2020-01-26] MEDS: METOCLOPRAMIDE 5 MG TABLET. PO SCH ×4 (08:32→22:16)
[2020-01-26] MEDS: SERTRALINE 50 MG TABLET. PO SCH (08:32)
[2020-01-26] MEDS: rOPINIRole 0.25 MG TABLET. PO SCH ×2 (08:32→22:16)
[2020-01-26] MEDS: SENNOSIDES 8.6 MG TABLET PO SCH (08:32)
[2020-01-26] MEDS: ZINC SULFATE 220 MG CAPSULE. PO SCH (08:32)
[2020-01-26] MEDS: LUBIPROSTONE 24 MCG CAPSULE PO SCH ×2 (08:32→17:26)
[2020-01-26] MEDS: SEVELAMER CARBONATE 2.4 GM PACKET. PO SCH ×3 (08:33→17:26)
[2020-01-26] MEDS: POLYVINYL ALCOHOL 1.4% OPHTH SOLUTION 15ML BOTTLE. OU SCH ×2 (08:33→22:14)
[2020-01-26] MEDS: BRIMONIDINE 0.2% OPHTH SOLUTION 5ML BOTTLE. OU SCH ×2 (08:33→22:14)
[2020-01-26] MEDS: TIMOLOL 0.5% OPHTH SOLUTION 5ML BOTTLE. OU SCH ×2 (08:33→22:15)
[2020-01-26] MEDS: GABAPENTIN 100 MG CAPSULE. PO SCH ×3 (08:34→22:16)
[2020-01-26] MEDS: LEVOTHYROXINE 100 MCG TABLET PO SCH (08:37)
[2020-01-26] MEDS ORDERED: IV NORMAL SALINE 1000ML BAG 1,000 ML IV PRN ×2 (08:52)
[2020-01-26] MEDS ORDERED: ALBUMIN HUMAN 25% 200 ML IV PRN (09:00)
[2020-01-26] MEDS ORDERED: DIALYSIS PATIENT. MC PRN ×2 (09:00)
[2020-01-26] MEDS: INSULIN GLARGINE SYRINGE. SQ SCH ×2 (09:07→22:25)
[2020-01-26] MEDS: HEPARIN for SUB-Q USE 5,000 UNIT/ML VIAL. SQ SCH ×2 (09:08→22:26)
[2020-01-26] MEDS: INSULIN LISPRO 300 UNITS/3 ML VIAL. SQ SCH ×6 (09:09→17:41)
[2020-01-26] MEDS: VANCOMYCIN PER PHARMACY MC PRN (09:12)
--- NOTE | 2020-01-26 09:14 | NUR ---
Pharmacy Vancomycin Dosing Note S:Consulted to monitor and dose vancomycin started 01/24/20. O:LAINE KING is a 64 year old F with UTI . Height: 5 feet, 4 inches Weight: 106.5 kg [place] Body Weight: 54.70 Adjusted Body Weight: 75.42 Dosing Weight: Actual Other Antibiotics: CEFEPIME 1 GM Q24H LABS: Last BUN: 49 Last Creatinine: 5.9 Creatinine Clearance: HD MWF mL/min Last WBC: 5.5 Last Procalcitonin: Tmax (past 24 hours): 98.0 Microbiology: 01/25 BCX PENDING I/O: 590/1 VOID Drug Levels: Last level: on at Last dose given 01/24/20 at 0100 Vancomycin Dosing: Loading Dose: 2000 mg x1 Dosing Weight: Actual Target Trough: 15-20 A: Based on: LEVEL 19.2 THIS AM, HD SCHEDULE P: 1. INITIATE Vancomycin 500 mg IV MWF POST HD STARTING 01/27 2. Follow up Random level NEEDED. 3. Pharmacy will continue to monitor, follow and adjust therapy as needed. ARCENIO ARZOLA RPH, 01/26/20 [id number]
--- NOTE | 2020-01-26 10:37 | CONS ---
DATE OF CONSULTATION: 01/26/2020 LOCATION: The patient is in Room 210. REQUESTING PHYSICIAN: Dr. Horne. REASON FOR CONSULTATION: Sepsis, UTI. HISTORY OF PRESENT ILLNESS: The patient is a 65-year-old senior care resident. By report, she is on normally 3 and a half liters of oxygen at her nursing facility. She also has a history of chronic kidney disease. States she undergoes dialysis on Friday, Friday, and Friday. She was brought to [facility] Emergency Room on 01/23/2020 with acute mental status changes. She was found unresponsive in her bed. On arrival, she was disoriented, mildly confused. She underwent a CT scan of her chest which showed some heterogeneous attenuation pattern in lungs favored mostly scarring atelectasis. She was found to have distention of the rectum with a well-formed stool, surrounding wall thickening and faint pericolonic inflammation suggesting some inflammation due to the extent of the impacted stool. She was tested and was COVID negative. She has had multiple stools now since her presentation. Urinalysis was concerning for urinary tract infection and she has been placed on vancomycin and cefepime. Currently, the patient is sitting upright in bed. She feels better, pretty much back at her baseline. She denies feeling ill prior to her presentation. Currently, she has no fevers, chills, sweats. She has no headache, sore throat, cough or chest pain. No nausea or vomiting. She does not make much urine. Stools have been working. Appetite is a little bit down, but in part it is related to her food selections. PAST MEDICAL HISTORY: Positive for: 1. Proteus urinary tract infection. 2. History of C. diff. 3. History of morbid obesity. 4. She has a history of glaucoma with left eye scarring. 5. Hypertension. 6. Cardiomyopathy. 7. Coronary artery disease. 8. Hyperlipidemia. 9. Previous CVA. 10. Anemia. 11. Constipation. 12. Diverticulosis. 13. Hemorrhoids. 14. Chronic kidney disease, on hemodialysis. 15. Restless leg. 16. Obstructive sleep apnea, on 3.5 liters normally per nursing. 17. Hypothyroidism. PAST SURGICAL HISTORY: Positive for: 1. Left AKA. 2. AV graft placement. 3. Cholecystectomy. 4. CABG. REVIEW OF SYSTEMS: Otherwise negative except for mentioned above. ALLERGIES: Listed as ACETAMINOPHEN, CODEINE, FENTANYL, HYDROCODONE, , MORPHINE, OXYCODONE. SOCIAL HISTORY: She is a senior care resident. No recent alcohol or tobacco. FAMILY HISTORY: Positive for coronary artery disease. CURRENT MEDICATIONS: Include: 1. Vancomycin. 2. Cefepime. 3. Lipitor. 4. Plavix. 5. Pepcid. 6. Neurontin. 7. Heparin. 8. Hydrocortisone. 9. Insulin. 10. Lactobacillus. 11. Synthroid. 12. Lubiprostone. 13. Reglan. 14. Midrin. 15. Niacin. 16. MiraLax. 17. Requip. 18. Zoloft. 19. Renvela. 20. Tramadol. PHYSICAL EXAMINATION: VITAL SIGNS: Afebrile, temperature 98.2, pulse 62, respirations 22, blood pressure 178/84, satting 96% on 3.5 liters. CONSTITUTIONAL: She is alert. She is cooperative. She is in no acute distress. HEENT: Her left eye is scarred over. Some erythema of the conjunctivae. Oral cavity, oropharynx is clear. NECK: Supple. No JVD. LUNGS: Clear to auscultation. HEART: S1, S2. ABDOMEN: Morbidly obese. Soft. No guarding, no rebound. EXTREMITIES: Without clubbing, cyanosis. She has a left upper extremity AV fistula. She had a left AKA. SKIN: Warm to touch without signs of rash. NEUROLOGIC: She moves all extremities and answers questions. PSYCHIATRIC: Affect is pleasant. LABORATORY DATA: Most recent white count from 01/24/2020 is 5.5, hemoglobin 11.1, platelets of 152, neutrophils 74, lymphs are 14, creatinine today 5.9, glucose is 193. She had normal liver function study tests on arrival. CT scan of chest and abdomen reviewed in the history of present illness. CT scan of the head: No acute findings. Old large infarct in the left. Mild atrophy. Chronic white matter changes. IMPRESSION: 1. Urinary tract infection present on admission on 01/23/2020. 2. Chronic kidney disease, on hemodialysis. 3. Diabetes. 4. Fecal retention, present on admission. Positive BM since admission. 5. History of Clostridium difficile. RECOMMENDATIONS: For now: 1. We will continue vancomycin and cefepime. Follow up labs and cultures. 2. Adjust to p.o. when UTI bacteria identified and sensitivity is available. This was discussed with nursing. Thank you for allowing me to participate in the patient's care. Should you have questions, please do not hesitate to contact me. LACHELLE RIVERA MD DR: ENRIKE/kieran JOB#: [id number] / [id number] SEGUNDO
--- NOTE | 2020-01-26 10:42 | PDOC ---
SUBJECTIVE ROS alert no complaints Yesterday BP low despite Midodrine, Given IV NS boluses This am BP high, Midodrine held OBJECTIVE Vital Signs Vital Signs Date Time Temp Pulse Resp B/P (MAP) Pulse Ox O2 Delivery O2 Flow Rate FiO2 01/26/20 07:00 97.3 61 22 177/67 (103) 100 Nasal Cannula 3.5 97.3 I & 0 Intake and Output 01/26/20 07:00 Intake Total 590 ml Balance 590 ml Intake Oral 590 ml # Voids 1 PHYSICAL EXAM Physical Exam General: No acute distress, HEENT: Mucous membr. moist/pink, Lungs: Clear to auscultation Heart: S1S2, no murmurs Abdomen: Normal bowel sounds, Soft, obese Extremities: No cyanosis, Skin: No rashes Neuro: grossly normal, Alert DIAGNOSIS/ASSESSMENT Assessment & Plan ESRD- On HD MWF @ [facility] under Dr. Clemente's care Seen on HD, tolerating well, continue as ordered , De DRn UF as tolerated, avoid Hypotension UTI/Sepsis - On Abx per ID acute confusion- Resolved poss seizure disorder or post-ictal CoVid negative COMMENT/RELEVANT DATA Meds Current Medications Medications (Trade) Dose Ordered Sig/Diana Start Time Stop Time Status Last Admin Dose Admin Acetaminophen (Tylenol) 325 mg PRN QID PRN 01/23/20 18:00 01/23/20 18:40 DC Albumin Human 200 ml @ 200 mls/hr 1X PRN PRN 01/26/20 09:00 01/26/20 14:59 Artificial Tears (Artificial Tears) 1 drop BID 01/23/20 21:00 01/26/20 08:33 1 DROP Atorvastatin Calcium (Lipitor) 40 mg DAILY 01/24/20 09:00 01/26/20 08:32 40 MG Brimonidine Tartrate (Alphagan) 1 drop BID 01/23/20 21:00 01/26/20 08:33 1 DROP Carvedilol (Coreg) 3.125 mg BIDWMEALS 01/23/20 21:00 01/23/20 18:40 DC Cefepime HCl (Maxipime) 1 gm Q24H 01/24/20 17:00 01/25/20 17:00 1 GM Clopidogrel Bisulfate (Plavix) 75 mg DAILY 01/24/20 09:00 7/8/20 08:31 75 MG Dextrose (Dextrose 50%-Water Syringe) 12.5 gm PRN Q15MIN PRN 01/23/20 19:00 Cancel Famotidine (Pepcid) 20 mg HS 01/23/20 21:00 01/25/20 21:49 20 MG Gabapentin (Neurontin) 100 mg TID 01/23/20 21:00 01/26/20 08:34 100 MG Heparin Sodium (Porcine) (Heparin Sodium) 5,000 unit Q12HR 01/23/20 21:00 01/26/20 09:08 5,000 UNIT Hydrocortisone Sodium Succinate (Solu-CORTEF) 100 mg Q8HRS 01/24/20 06:00 01/26/20 06:15 100 MG Info (PHARMACY MONITORING -- do not chart) 1 each PRN DAILY PRN 01/26/20 09:00 01/26/20 08:59 DC Insulin Glargine (Lantus Syringe) 25 unit DAILY 01/24/20 09:00 01/26/20 09:07 25 UNIT Insulin Human Lispro (HumaLOG) 0-9 UNITS TIDWMEALS 01/24/20 08:00 01/26/20 09:09 4 UNITS Lactobacillus Rhamnosus (Culturelle) 1 cap BID 01/23/20 21:00 01/26/20 08:32 1 CAP Latanoprost (Xalatan) 1 drop QHS 01/23/20 21:00 01/25/20 21:48 1 DROP Levothyroxine Sodium (Synthroid) 100 mcg DAILY 01/24/20 09:00 01/26/20 08:37 100 MCG Lorazepam (Ativan Inj) 1 mg PRN Q4HRS PRN 01/23/20 18:00 Lubiprostone (Amitiza) 24 mcg BIDWMEALS 01/24/20 08:00 01/26/20 08:32 24 MCG Metoclopramide HCl (Reglan) 2.5 mg QIDACHS 01/23/20 21:00 01/26/20 08:32 2.5 MG Midodrine (Proamatine) 10 mg QMWF@1800 01/24/20 18:00 Niacin (Niaspan) 500 mg QHS 01/23/20 21:00 01/25/20 21:49 500 MG Non-Formulary Medication (Glycerin/Dimeth/ Surfactants (Cavilon One-Step Skin Care Lot)) 236 ml DAILY 01/24/20 09:00 01/23/20 19:04 DC Ondansetron HCl (Zofran Odt) 4 mg PRN Q6HRS PRN 01/23/20 19:15 01/24/20 16:09 DC Ondansetron HCl (Zofran) 4 mg 1X ONCE 01/24/20 16:15 01/24/20 16:36 DC 01/24/20 20:29 4 MG Pantoprazole Sodium (Protonix) 40 mg DAILY07 01/24/20 07:00 01/23/20 18:40 DC Polyethylene Glycol (miraLAX PACKET) 17 gm Q3DAYS 01/26/20 09:00 01/26/20 08:31 17 GM Psyllium Hydrophilic Mucilloid (Metamucil Fiber Packet) 1 pkt BID 01/24/20 21:00 01/26/20 08:31 1 PKT Ropinirole HCl (Requip) 1 mg QHS 01/23/20 21:00 01/25/20 21:49 1 MG Sennosides (Senna) 8.6 mg DAILY 01/24/20 09:00 01/26/20 08:32 8.6 MG Sertraline HCl (Zoloft) 100 mg DAILY 01/24/20 09:00 01/26/20 08:32 100 MG Sevelamer Carbonate (Renvela) 2.4 gm TIDWMEALS 01/24/20 08:00 01/26/20 08:33 2.4 GM Sodium Chloride 1,000 ml @ 400 mls/hr Q2H30M PRN 01/26/20 08:52 01/26/20 20:51 Timolol Maleate (Timoptic 0.5% Oph) 1 drop BID 01/23/20 21:00 01/26/20 08:33 1 DROP Tramadol HCl (Ultram) 50 mg PRN DAILY PRN 01/23/20 18:45 Vancomycin HCl (Vanco Per Pharmacy) 1 each PRN DAILY PRN 01/24/20 00:30 01/26/20 09:12 1 EACH Vancomycin HCl (Vancomycin Random Level) 1 each 1X ONCE 01/26/20 05:00 01/26/20 05:01 DC 01/26/20 05:00 1 EACH Vancomycin HCl 500 mg/Sodium Chloride 100 ml @ 100 mls/hr QMWF 01/28/20 16:00 Vancomycin HCl 2 gm/Sodium Chloride 500 ml @ 250 mls/hr 1X ONCE 01/24/20 01:00 01/24/20 02:59 DC 01/24/20 00:58 250 MLS/HR Vitamin B Complex/ Vitamin C (Maribell-Prem) 1 tab DAILY 01/24/20 09:00 01/26/20 08:31 1 TAB Vitamin D (Vitamin D3) 5,000 unit DAILY 01/24/20 09:00 01/23/20 18:40 DC Zinc Sulfate (Orazinc) 220 mg DAILY 01/24/20 09:00 01/26/20 08:32 220 MG Lab Laboratory Tests Test 01/25/20 11:01 01/25/20 18:22 01/26/20 04:30 01/26/20 08:07 Glucose (Fingerstick) 249 mg/dL (70-99) 202 mg/dL (70-99) 158 mg/dL (70-99) Sodium Level 131 mmol/L (136-145) Potassium Level 5.0 mmol/L (3.5-5.1) Chloride Level 94 mmol/L (98-107) Carbon Dioxide Level 30 mmol/L (21-32) Anion Gap 7 (6-14) Blood Urea Nitrogen 49 mg/dL (7-20) Creatinine 5.9 mg/dL (0.6-1.0) Estimated GFR (Cockcroft-Gault) 7.2 Glucose Level 193 mg/dL (70-99) Calcium Level 8.9 mg/dL (8.5-10.1) Troponin I Quantitative 0.019 ng/mL (0.000-0.055) Random Vancomycin Level 19.2 mcg/mL Results All relevant outside records, renal labs, imaging studies, telemetry/EKG's were reviewed. Justicifation of Admission Dx: Justifications for Admission: Justification of Admission Dx: Yes NEVILLE ZIEGLER MD Jan 26, 2020 10:42
[2020-01-26 13:57] VITALS: BP 125/79
[2020-01-26 15:00] VITALS: BP 140/59
--- NOTE | 2020-01-26 17:08 | NUR ---
Wound/Ostomy Care Wound Type/Assessment: wound care consult for right 3rd toe DFU. R 3rd has a hard/thick scab. No drainage noted. Treatment Recommendations/Plan: wound cleanse with wound wash, pictured and measured. 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 No other wounds noted upon skin assessment. Pt left turn to her left. JENNIFER Ba at bedside at time of assessment. Education provided: pt/nurse re: turns q2h while in bed Offloading surface/device: purple wedge, P500 bed Recommended Referrals/Tests: n/a Discharge Recommendations for dressings: Right 3rd toe, cleanse wound, paint with betadine daily.
[2020-01-26] MEDS: CEFEPIME HCL IV Push 1 GM VIAL. IVP SCH (17:26)
[2020-01-26 19:00] VITALS: BP 115/62
[2020-01-26] MEDS: LATANOPROST 0.005% OPHTH SOLUTION 2.5ML BOTTLE. OU SCH (22:15)
[2020-01-26] MEDS: FAMOTIDINE 20 MG TABLET. PO SCH (22:16)
[2020-01-26] MEDS: NIACIN ER 250 MG CAPSULE.ER PO SCH (22:16)
[2020-01-26] MEDS: rOPINIRole 1 MG TABLET. PO SCH (22:22)
[2020-01-26 23:00] VITALS: BP 120/64
[2020-01-27] VITALS (7 sets, daily range): BP systolic 128–188; BP diastolic 55–86
[2020-01-27] MEDS: HYDROCORTISONE SOD SUCC/PF 100 MG/2 ML VIAL. IVP SCH (05:53)
--- NOTE | 2020-01-27 07:50 | PDOC ---
Infectious Disease Note Subjective Subjective Feels a little confused this am with what is going on Denies F/C/S/N/V/D/SOA/rash o/w baseline ROS ROS o/w neg Vital Sign Vital Signs Vital Signs Date Time Temp Pulse Resp B/P (MAP) Pulse Ox O2 Delivery O2 Flow Rate FiO2 01/27/20 02:49 98.2 58 18 139/57 (84) 99 Nasal Cannula 3.5 98.2 Physical Exam PHYSICAL EXAM CONSTITUTIONAL: She is alert. She is cooperative. She is in no acute distress. HEENT: Her left eye is scarred over. Some erythema of the conjunctivae. Oral cavity, oropharynx is clear. NECK: Supple. No JVD. LUNGS: Clear to auscultation. HEART: S1, S2. ABDOMEN: Morbidly obese. Soft. No guarding, no rebound. EXTREMITIES: Without clubbing, cyanosis. She has a left upper extremity AV fistula. She had a left AKA. SKIN: Warm to touch without signs of rash. NEUROLOGIC: She moves all extremities and answers questions. PSYCHIATRIC: Affect is pleasant. Labs Lab Laboratory Tests Test 01/26/20 08:07 01/26/20 13:54 01/26/20 17:25 01/26/20 20:59 Glucose (Fingerstick) 158 mg/dL (70-99) 127 mg/dL (70-99) 205 mg/dL (70-99) 372 mg/dL (70-99) Micro CT 01/22 IMPRESSION: CHEST: 1. Degraded study due to motion artifact. 2. No sequela of trauma seen throughout the chest. 3. Heterogeneous attenuation pattern of the lungs favored mostly on account of scarring and atelectasis. An atypical infectious process is difficult to fully excluded but considered less likely and less clinical findings suggest otherwise. Abdomen/pelvis: 1. Degraded study due to motion, patient body habitus and streak artifact from the patient's arms. 2. No acute abnormality seen throughout the abdomen or pelvis. 3. Distention of the rectum with well-formed stool. Mild surrounding wall thickening and faint pericolonic inflammation suggesting some inflammation due to the extent of impacted stool. Soft tissue fullness at the posterior wall of the anorectal region where the lumen is somewhat tented. A colo-cutaneous fistula would be unusual but recommend correlation with patient history and direct inspection if needed (image 101 series 4 and image 37 series 9). 4. Senescent/chronic findings as detailed in the body the report. Microbiology 01/23/20 Blood Culture - Preliminary, Resulted NO GROWTH AFTER 2 DAYS Objective Assessment UTI - POA 01/22 - no cults ordered 01/22 CKD on HD DM Fecal retention POA - + BM H/o C-diff Plan Plan of Care Clinically much improved rapidly so will Discont Vanc and Cefepime 01/22 Begin po Cefdinir and would treat for 3 days. Treat in late afternoon so after HD Monitor ? Confusion possibly Cefepime but do not know baseline F/u CBC in am D/w nursing LACHELLE RIVERA MD Jan 27, 2020 07:50
--- NOTE | 2020-01-27 08:58 | PDOC ---
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 According to nursing facility patient is normally fully alert and oriented. They state that they found her unresponsive in bed. They called an ambulance and on the way here patient became more awake and alert. She then was able to tell us her name and location but was otherwise disoriented. She was moving all extremities. She was unable to provide us any history. Her only c omplaint was fatigue. She then became unresponsive again. On imaging found with fecal impaction. UA positive for blood leukocyte esterase protein. Labs otherwise consistent with ESRD, NA 131, WBC 5.5, Hb 11.1, platelets 152 MCV is 107 7/8: Afebrile. WBC 5.5. Urine culture pending. Going to dialysis today she has no complaints. Very pleasantly confused. Stable, confused, but mentally improved. Still waiting for final urine culture as she is improved, she is transition to cefdinir per ID. Vitals Vitals Vital Signs Date Time Temp Pulse Resp B/P (MAP) Pulse Ox O2 Delivery O2 Flow Rate FiO2 01/27/20 07:00 98.1 62 20 162/86 (111) 97 Nasal Cannula 2.0 98.1 Physical Exam Physical Exam CONSTITUTIONAL: She is alert. She is cooperative. She is in no acute distress. HEENT: Her left eye is scarred over. Some erythema of the conjunctivae. Oral cavity, oropharynx is clear. NECK: Supple. No JVD. LUNGS: Clear to auscultation. HEART: S1, S2. ABDOMEN: Morbidly obese. Soft. No guarding, no rebound. EXTREMITIES: Without clubbing, cyanosis. She has a left upper extremity AV fistula. She had a left AKA. SKIN: Warm to touch without signs of rash. NEUROLOGIC: She moves all extremities and answers questions. PSYCHIATRIC: Affect is pleasant. General: No acute distress, Other (Pleasantly confused this might be her baseline?) Heart: Regular rate Lungs: Clear, Other Abdomen: Normal bowel sounds, Soft Extremities: No cyanosis, Normal pulses Skin: No rashes Labs LABS Laboratory Tests Test 01/26/20 13:54 01/26/20 17:25 01/26/20 20:59 01/27/20 07:54 Glucose (Fingerstick) 127 mg/dL (70-99) 205 mg/dL (70-99) 372 mg/dL (70-99) 226 mg/dL (70-99) Assessment and Plan Assessmemt and Plan Problems Medical Problems: (1) Altered mental status Status: Acute Comment Review of Relevant I have reviewed the following items dat (where applicable) has been applied. Labs Laboratory Tests Test 01/25/20 11:01 01/25/20 18:22 01/26/20 04:30 01/26/20 08:07 Glucose (Fingerstick) 249 mg/dL (70-99) 202 mg/dL (70-99) 158 mg/dL (70-99) Sodium Level 131 mmol/L (136-145) Potassium Level 5.0 mmol/L (3.5-5.1) Chloride Level 94 mmol/L (98-107) Carbon Dioxide Level 30 mmol/L (21-32) Anion Gap 7 (6-14) Blood Urea Nitrogen 49 mg/dL (7-20) Creatinine 5.9 mg/dL (0.6-1.0) Estimated GFR (Cockcroft-Gault) 7.2 Glucose Level 193 mg/dL (70-99) Calcium Level 8.9 mg/dL (8.5-10.1) Troponin I Quantitative 0.019 ng/mL (0.000-0.055) Random Vancomycin Level 19.2 mcg/mL Test 01/26/20 13:54 01/26/20 17:25 01/26/20 20:59 01/27/20 07:54 Glucose (Fingerstick) 127 mg/dL (70-99) 205 mg/dL (70-99) 372 mg/dL (70-99) 226 mg/dL (70-99) Laboratory Tests Test 01/26/20 13:54 01/26/20 17:25 01/26/20 20:59 01/27/20 07:54 Glucose (Fingerstick) 127 mg/dL (70-99) 205 mg/dL (70-99) 372 mg/dL (70-99) 226 mg/dL (70-99) Microbiology 01/23/20 Blood Culture - Preliminary, Resulted NO GROWTH AFTER 3 DAYS Medications Current Medications Lorazepam (Ativan Inj) 1 mg 1X ONCE IVP Last administered on 01/23/20at 13:14; Start 01/23/20 at 12:30; Stop 01/23/20 at 12:31; Status DC Cefepime HCl (Maxipime) 1 gm 1X ONCE IVP Last administered on 01/23/20at 14:26; Start 01/23/20 at 14:30; Stop 01/23/20 at 14:31; Status DC Cefepime HCl (Maxipime) 1 gm Q24H IVP Last administered on 01/26/20at 17:26; Start 01/24/20 at 17:00; Stop 01/27/20 at 08:11; Status DC Insulin Human Lispro (HumaLOG) 0-7 UNITS TIDWMEALS SQ ; Start 01/24/20 at 08:00; Stop 01/23/20 at 18:40; Status DC Dextrose (Dextrose 50%-Water Syringe) 12.5 gm PRN Q15MIN PRN IV SEE COMMENTS; Start 01/23/20 at 18:00 Acetaminophen (Tylenol) 325 mg PRN QID PRN PO MILD PAIN / TEMP > 100.3'F; Start 01/23/20 at 18:00; Stop 01/23/20 at 18:40; Status DC Carvedilol (Coreg) 3.125 mg BIDWMEALS PO ; Start 01/23/20 at 21:00; Stop 01/23/20 at 18:40; Status DC Clopidogrel Bisulfate (Plavix) 75 mg DAILY PO ; Start 01/24/20 at 09:00; Stop 01/23/20 at 18:40; Status DC Gabapentin (Neurontin) 100 mg TID PO ; Start 01/23/20 at 21:00; Stop 01/23/20 at 18:40; Status DC Levothyroxine Sodium (Synthroid) 100 mcg DAILY PO ; Start 01/24/20 at 09:00; Stop 01/23/20 at 18:40; Status DC Midodrine (Proamatine) 2.5 mg DAILY PO ; Start 01/24/20 at 09:00; Stop 01/23/20 at 18:40; Status DC Ondansetron HCl (Zofran Odt) 4 mg PRN Q6HRS PRN PO NAUSEA/VOMITING; Start 01/23/20 at 18:00; Stop 01/23/20 at 18:40; Status DC Pantoprazole Sodium (Protonix) 40 mg DAILY07 PO ; Start 01/24/20 at 07:00; Stop 01/23/20 at 18:40; Status DC Polyethylene Glycol (miraLAX PACKET) 17 gm DAILY PO ; Start 01/24/20 at 09:00; Stop 01/23/20 at 18:40; Status DC Sevelamer Carbonate (Renvela) 2,400 mg TIDWMEALS PO ; Start 01/24/20 at 08:00; Stop 01/23/20 at 18:40; Status DC Zinc Sulfate (Orazinc) 220 mg DAILY PO ; Start 01/24/20 at 09:00; Stop 01/23/20 at 18:40; Status DC Vitamin D (Vitamin D3) 5,000 unit DAILY PO ; Start 01/24/20 at 09:00; Stop 01/23/20 at 18:40; Status DC Lorazepam (Ativan Inj) 1 mg PRN Q4HRS PRN IVP ANXIETY / AGITATION; Start 01/23/20 at 18:00 Heparin Sodium (Porcine) (Heparin Sodium) 5,000 unit Q12HR SQ Last administered on 01/26/20at 22:26; Start 01/23/20 at 21:00 Atorvastatin Calcium (Lipitor) 40 mg DAILY PO Last administered on 01/26/20at 08:32; Start 01/24/20 at 09:00 Clopidogrel Bisulfate (Plavix) 75 mg DAILY PO Last administered on 01/26/20at 08:31; Start 01/24/20 at 09:00 Famotidine (Pepcid) 20 mg HS PO Last administered on 01/26/20at 22:16; Start 01/23/20 at 21:00 Vitamin B Complex/ Vitamin C (Maribell-Prem) 1 tab DAILY PO Last administered on 01/26/20at 08:31; Start 01/24/20 at 09:00 Gabapentin (Neurontin) 100 mg TID PO Last administered on 01/26/20at 22:16; Start 01/23/20 at 21:00 Levothyroxine Sodium (Synthroid) 100 mcg DAILY PO Last administered on 01/26/20 08:37; Start 01/24/20 at 09:00 Metoclopramide HCl (Reglan) 2.5 mg QIDACHS PO Last administered on 01/26/20 22:16; Start 01/23/20 at 21:00 Polyethylene Glycol (miraLAX PACKET) 17 gm Q3DAYS PO Last administered on 01/26/20 08:31; Start 01/26/20 at 09:00 Artificial Tears (Artificial Tears) 1 drop BID OU Last administered on 01/26/20 22:14; Start 01/23/20 at 21:00 Psyllium Hydrophilic Mucilloid (Metamucil Fiber Packet) 17 pkt BID PO ; Start 01/23/20 at 21:00; Stop 01/24/20 at 11:08; Status DC Ropinirole HCl (Requip) 0.25 mg DAILY PO Last administered on 01/26/20 22:16; Start 01/24/20 at 09:00 Ropinirole HCl (Requip) 1 mg QHS PO Last administered on 01/26/20 22:22; Start 01/23/20 at 21:00 Sennosides (Senna) 8.6 mg DAILY PO Last administered on 01/26/20 08:32; Start 01/24/20 at 09:00 Sevelamer Carbonate (Renvela) 2.4 gm TIDWMEALS PO Last administered on 01/26/20 17:26; Start 01/24/20 at 08:00 Tramadol HCl (Ultram) 50 mg PRN DAILY PRN PO PAIN; Start 01/23/20 at 18:45 Latanoprost (Xalatan) 1 drop QHS OU Last administered on 01/26/20 22:15; Start 01/23/20 at 21:00 Timolol Maleate (Timoptic 0.5% [facility]) 1 drop BID OU Last administered on 01/26/20 22:15; Start 01/23/20 at 21:00 Non-Formulary Medication (Glycerin/Dimeth/ Surfactants (Cavilon One-Step Skin Care Lot)) 236 ml DAILY TP ; Start 01/24/20 at 09:00; Stop 01/23/20 at 19:04; Status DC Insulin Human Lispro (HumaLOG) 10 units TIDWMEALS SQ Last administered on 01/26/20 17:41; Start 01/24/20 at 08:00 Insulin Glargine (Lantus Syringe) 22 unit QHS SQ Last administered on 01/26/20 22:25; Start 01/23/20 at 21:00 Insulin Glargine (Lantus Syringe) 25 unit DAILY SQ Last administered on 01/26/20 09:07; Start 01/24/20 at 09:00 Lactobacillus Rhamnosus (Culturelle) 1 cap BID PO Last administered on 01/26/20 22:16; Start 01/23/20 at 21:00 Lubiprostone (Amitiza) 24 mcg BIDWMEALS PO Last administered on 01/26/20 17:26; Start 01/24/20 at 08:00 Midodrine (Proamatine) 10 mg QMWF@0700 PO ; Start 01/24/20 at 07:00 Midodrine (Proamatine) 10 mg PRN Q8HRS PRN PO HYPOTENSION Last administered on 01/25/20 14:21; Start 01/24/20 at 07:00 Niacin (Niaspan) 500 mg QHS PO Last administered on 01/26/20 22:16; Start 01/23/20 at 21:00 Ondansetron HCl (Zofran Odt) 4 mg PRN Q6HRS PRN PO NAUSEA/VOMITING; Start 01/23/20 at 19:15; Stop 01/24/20 at 16:09; Status DC Zinc Sulfate (Orazinc) 220 mg DAILY PO Last administered on 01/26/20 08:32; Start 01/24/20 at 09:00 Sertraline HCl (Zoloft) 100 mg DAILY PO Last administered on 01/26/20 08:32; Start 01/24/20 at 09:00 Insulin Human Lispro (HumaLOG) 0-9 UNITS TIDWMEALS SQ Last administered on 01/25 17:40; Start 01/24/20 at 08:00 Dextrose (Dextrose 50%-Water Syringe) 12.5 gm PRN Q15MIN PRN IV SEE COMMENTS; Start 01/23/20 at 19:00; Status Cancel Brimonidine Tartrate (Alphagan) 1 drop BID OU Last administered on 01/26/20at 22:14; Start 01/23/20 at 21:00 Midodrine (Proamatine) 10 mg QMWF@1300 PO Last administered on 01/24/20at 12:58; Start 01/24/20 at 13:00 Midodrine (Proamatine) 10 mg QMWF@1800 PO ; Start 01/24/20 at 18:00 Vancomycin HCl (Vanco Per Pharmacy) 1 each PRN DAILY PRN MC SEE COMMENTS Last administered on 01/26/20at 09:12; Start 01/24/20 at 00:30; Stop 01/27/20 at 08:11; Status DC Hydrocortisone Sodium Succinate (Solu-CORTEF) 100 mg Q8HRS IVP Last administered on 01/27/20at 05:53; Start 01/24/20 at 06:00 Vancomycin HCl 2 gm/Sodium Chloride 500 ml @ 250 mls/hr 1X ONCE IV Last administered on 01/24/20at 00:58; Start 01/24/20 at 01:00; Stop 01/24/20 at 02:59; Status DC Vancomycin HCl (Vancomycin Random Level) 1 each 1X ONCE MC Last administered on 01/26/20at 05:00; Start 01/26/20 at 05:00; Stop 01/26/20 at 05:01; Status DC Psyllium Hydrophilic Mucilloid (Metamucil Fiber Packet) 1 pkt BID PO Last administered on 01/26/20at 22:20; Start 01/24/20 at 21:00 Ondansetron HCl (Zofran) 4 mg STK-MED ONCE .ROUTE ; Start 01/24/20 at 16:03; Stop 01/24/20 at 16:03; Status DC Ondansetron HCl (Zofran) 4 mg PRN Q8HRS PRN IVP NAUSEA/VOMITING; Start 01/24/20 at 16:15 Sodium Chloride 1,000 ml @ 1,000 mls/hr Q1H PRN IV hypotension; Start 01/24/20 at 16:08; Stop 01/24/20 at 22:07; Status DC Albumin Human 200 ml @ 200 mls/hr 1X PRN PRN IV Hypotension; Start 01/24/20 at 16:15; Stop 01/24/20 at 22:14; Status DC Sodium Chloride 1,000 ml @ 400 mls/hr Q2H30M PRN IV PATENCY; Start 01/24/20 at 16:08; Stop 01/25/20 at 04:07; Status DC Info (PHARMACY MONITORING -- do not chart) 1 each PRN DAILY PRN MC SEE COMMENTS; Start 01/24/20 at 16:15; Status UNV Info (PHARMACY MONITORING -- do not chart) 1 each PRN DAILY PRN MC SEE COMMENTS; Start 01/24/20 at 16:15 Ondansetron HCl (Zofran) 4 mg 1X ONCE IV Last administered on 01/24/20at 20:29; Start 01/24/20 at 16:15; Stop 01/24/20 at 16:36; Status DC Sodium Chloride 500 ml @ 500 mls/hr 1X ONCE IV Last administered on 01/25/20at 16:45; Start 01/25/20 at 16:45; Stop 01/25/20 at 17:44; Status DC Sodium Chloride 500 ml @ 500 mls/hr 1X ONCE IV ; Start 01/25/20 at 19:00; Stop 01/25/20 at 19:59; Status DC Sodium Chloride 1,000 ml @ 1,000 mls/hr Q1H PRN IV hypotension; Start 01/26/20 at 08:52; Stop 01/26/20 at 14:51; Status DC Albumin Human 200 ml @ 200 mls/hr 1X PRN PRN IV Hypotension; Start 01/26/20 at 09:00; Stop 01/26/20 at 14:59; Status DC Sodium Chloride 1,000 ml @ 400 mls/hr Q2H30M PRN IV PATENCY; Start 01/26/20 at 08:52; Stop 01/26/20 at 20:51; Status DC Info (PHARMACY MONITORING -- do not chart) 1 each PRN DAILY PRN MC SEE COMMENTS; Start 01/26/20 at 09:00; Stop 01/26/20 at 08:59; Status DC Info (PHARMACY MONITORING -- do not chart) 1 each PRN DAILY PRN MC SEE COMMENTS; Start 01/26/20 at 09:00; Stop 01/26/20 at 08:59; Status DC Vancomycin HCl 500 mg/Sodium Chloride 100 ml @ 100 mls/hr QMWF IV ; Start 01/28/20 at 16:00; Stop 01/27/20 at 08:11; Status DC Cefdinir (Omnicef) 300 mg DAILY@1700 PO ; Start 01/27/20 at 17:00 Active Scripts Active Reported Zoloft (Sertraline Hcl) 100 Mg Tablet 1 Tab PO DAILY Zofran (Ondansetron Hcl) 4 Mg Tablet 1 Tab PO Q6HRS Zinc 50 Mg Tablet 1 Tab PO DAILY 30 Days Tramadol Hcl 50 Mg Tablet 50 Mg PO DAILY PRN Synthroid (Levothyroxine Sodium) 100 Mcg Tablet 1 Tab PO DAILY Senna (Sennosides) 8.6 Mg Tablet 8.6 Mg PO DAILY Ropinirole Hcl 1 Mg Tablet 1 Mg PO DAILY Ropinirole Hcl 0.25 Mg Tablet 0.25 Mg PO DAILY Renvela (Sevelamer Carbonate) 2.4 Gm Powd.pack 2.4 Gm PO TIDWMEALS Maribell-Prem Tablet (Folic Acid/Vitamin B Comp W-C) 0.8 Mg Tablet 1 Tab PO DAILY 30 Days Reglan (Metoclopramide Hcl) 10 Mg Tablet 1 Tab PO QID 30 Days before food and bedtime Clopidogrel (Clopidogrel Bisulfate) 75 Mg Tablet 1 Tab PO DAILY Pepcid (Famotidine) 20 Mg Tablet 20 Mg PO HS Novolog (Insulin Aspart) 100 Unit/1 Ml Cartridge 0-16 Unit SQ TIDAC Novolog (Insulin Aspart) 100 Unit/1 Ml Cartridge 10 Unit SQ TIDAC Niacor (Niacin) 500 Mg Tablet 1 Tab PO QHS 30 Days Miralax (Polyethylene Glycol 3350) 17 Gm Powd.pack 1 Packet PO Q3DAYS 2 Days dissolve in water Midodrine Hcl 10 Mg Tablet 10 Mg PO BID MWF Midodrine Hcl 10 Mg Tablet 10 Mg PO PRN Q8HRS PRN Metamucil Fiber Singles Packet (Psyllium Husk/Aspartame) 3.4 Gm Powd.pack 17 Gm PO BID Lumigan (Bimatoprost) 2.5 Ml Drops 1 Drop EACHEYE QHS Linzess (Linaclotide) 145 Mcg Capsule 145 Mcg PO DAILY07 Levemir (Insulin Detemir) 100 Unit/1 Ml Vial 25 Unit SQ [id number] Levemir (Insulin Detemir) 100 Unit/1 Ml Vial 22 Unit SQ QHS Probiotic (Lactobacillus Acidophilus) 1 Each Capsule 1 Cap PO DAILY 10 Days Glucose Gel (Dextrose) 38 Gm Gel..gram. 38 Gm PO PRN PRN Gabapentin (Gabapentin) 100 Mg Capsule 100 Mg PO TID B-12 (Cyanocobalamin (Vitamin B-12)) 1,000 Mcg Tablet 1 Tab PO DAILY 30 Days Combigan Eye Drops (Brimonidine Tartrate/Timolol) 5 Ml Drops 5 Ml OP BID Cavilon One-Step Skin Care Lot (Glycerin/Dimeth/Surfactants) 236 Ml Lotion 236 Ml TP DAILY Atorvastatin Calcium 40 Mg Tablet 1 Tab PO DAILY Artificial Tears (Polyvinyl Alcohol) 15 Ml Drops 1 Drop EACHEYE BID 20 Days Vitals/I & O Vital Sign - Last 24 Hours 01/26/20 01/26/20 01/26/20 01/26/20 13:57 15:00 17:41 19:00 Temp 98.6 97.9 98.1 98.6 97.9 98.1 Pulse 71 72 74 76 Resp 22 22 22 B/P (MAP) 125/79 (94) 140/59 (86) 160/61 115/62 (79) Pulse Ox 96 100 97 O2 Delivery Nasal Cannula Nasal Cannula Nasal Cannula O2 Flow Rate 3.5 3.5 3.5 01/26/20 01/26/20 01/27/20 01/27/20 20:00 23:00 02:49 07:00 Temp 98.0 98.2 98.1 98.0 98.2 98.1 Pulse 80 58 62 Resp 19 18 20 B/P (MAP) 120/64 (82) 139/57 (84) 162/86 (111) Pulse Ox 100 99 97 O2 Delivery Nasal Cannula Nasal Cannula Nasal Cannula Nasal Cannula O2 Flow Rate 3.5 3.5 3.5 2.0 Intake and Output 01/26/20 01/26/20 01/27/20 15:00 23:00 07:00 Intake Total 240 ml 480 ml 150 ml Balance 240 ml 480 ml 150 ml Justicifation of Admission Dx: Justifications for Admission: Justification of Admission Dx: Yes DANIELLE MAYORGA MD Jan 27, 2020 08:58
[2020-01-27] MEDS: PSYLLIUM HUSK (SUGAR FREE) 1 PKT PACKET PO SCH ×2 (09:36→20:58)
[2020-01-27] MEDS: SENNOSIDES 8.6 MG TABLET PO SCH (09:36)
[2020-01-27] MEDS: FOLIC/VIT B COMP W-C (RENAL) TABLET. PO SCH (09:37)
[2020-01-27] MEDS: METOCLOPRAMIDE 5 MG TABLET. PO SCH ×4 (09:37→21:01)
[2020-01-27] MEDS: SERTRALINE 50 MG TABLET. PO SCH (09:37)
[2020-01-27] MEDS: LUBIPROSTONE 24 MCG CAPSULE PO SCH ×2 (09:37→17:47)
[2020-01-27] MEDS: LACTOBACILLUS RHAMNOSUS GG 1 CAPSULE. PO SCH ×2 (09:37→20:58)
[2020-01-27] MEDS: LEVOTHYROXINE 100 MCG TABLET PO SCH (09:38)
[2020-01-27] MEDS: ZINC SULFATE 220 MG CAPSULE. PO SCH (09:38)
[2020-01-27] MEDS: SEVELAMER CARBONATE 2.4 GM PACKET. PO SCH ×3 (09:38→17:47)
[2020-01-27] MEDS: CLOPIDOGREL BISULFATE 75 MG TABLET PO SCH (09:38)
[2020-01-27] MEDS: GABAPENTIN 100 MG CAPSULE. PO SCH ×3 (09:38→20:58)
[2020-01-27] MEDS: ATORVASTATIN CALCIUM 40 MG TABLET. PO SCH (09:38)
[2020-01-27] MEDS: BRIMONIDINE 0.2% OPHTH SOLUTION 5ML BOTTLE. OU SCH ×2 (09:39→20:59)
[2020-01-27] MEDS: POLYVINYL ALCOHOL 1.4% OPHTH SOLUTION 15ML BOTTLE. OU SCH ×2 (09:39→20:58)
[2020-01-27] MEDS: TIMOLOL 0.5% OPHTH SOLUTION 5ML BOTTLE. OU SCH ×2 (09:40→20:59)
[2020-01-27] MEDS: HEPARIN for SUB-Q USE 5,000 UNIT/ML VIAL. SQ SCH ×2 (09:58→21:03)
[2020-01-27] MEDS: INSULIN LISPRO 300 UNITS/3 ML VIAL. SQ SCH ×6 (09:59→17:54)
[2020-01-27] MEDS: INSULIN GLARGINE SYRINGE. SQ SCH ×2 (09:59→21:03)
--- NOTE | 2020-01-27 10:23 | PDOC ---
SUBJECTIVE ROS no new complaints or concerns by Pt director advertising OBJECTIVE Vital Signs Vital Signs Date Time Temp Pulse Resp B/P (MAP) Pulse Ox O2 Delivery O2 Flow Rate FiO2 01/27/20 07:00 98.1 62 20 162/86 (111) 97 Nasal Cannula 2.0 98.1 I & 0 Intake and Output 01/27/20 07:00 Intake Total 870 ml Balance 870 ml Intake Oral 870 ml # Voids 3 # Bowel Movements 2 PHYSICAL EXAM Physical Exam General: No acute distress, HEENT: Mucous membr. moist/pink, Lungs: Clear to auscultation Heart: S1S2, no murmurs Abdomen: Normal bowel sounds, Soft, obese Extremities: No cyanosis, Skin: No rashes Neuro: grossly normal, Alert DIAGNOSIS/ASSESSMENT Assessment & Plan ESRD- On HD MWF @ [facility] under Dr. Clemente's care No indication for HD today UTI/Sepsis - On Abx per ID acute confusion- Resolved poss seizure disorder or post-ictal CoVid negative COMMENT/RELEVANT DATA Meds Current Medications Medications (Trade) Dose Ordered Sig/Diana Start Time Stop Time Status Last Admin Dose Admin Acetaminophen (Tylenol) 325 mg PRN QID PRN 01/23/20 18:00 01/23/20 18:40 DC Albumin Human 200 ml @ 200 mls/hr 1X PRN PRN 01/26/20 09:00 01/26/20 14:59 DC Artificial Tears (Artificial Tears) 1 drop BID 01/23/20 21:00 01/27/20 09:39 1 DROP Atorvastatin Calcium (Lipitor) 40 mg DAILY 01/24/20 09:00 01/27/20 09:38 40 MG Brimonidine Tartrate (Alphagan) 1 drop BID 01/23/20 21:00 01/27/20 09:39 1 DROP Carvedilol (Coreg) 3.125 mg BIDWMEALS 01/23/20 21:00 01/23/20 18:40 DC Cefdinir (Omnicef) 300 mg DAILY@1700 01/27/20 17:00 Cefepime HCl (Maxipime) 1 gm Q24H 01/24/20 17:00 01/27/20 08:11 DC 01/26/20 17:26 1 GM Clopidogrel Bisulfate (Plavix) 75 mg DAILY 01/24/20 09:00 01/27/20 09:38 75 MG Dextrose (Dextrose 50%-Water Syringe) 12.5 gm PRN Q15MIN PRN 01/23/20 19:00 Cancel Famotidine (Pepcid) 20 mg HS 01/23/20 21:00 01/26/20 22:16 20 MG Gabapentin (Neurontin) 100 mg TID 01/23/20 21:00 01/27/20 09:38 100 MG Heparin Sodium (Porcine) (Heparin Sodium) 5,000 unit Q12HR 01/23/20 21:00 01/27/20 09:58 5,000 UNIT Hydrocortisone Sodium Succinate (Solu-CORTEF) 100 mg Q8HRS 01/24/20 06:00 01/27/20 05:53 100 MG Info (PHARMACY MONITORING -- do not chart) 1 each PRN DAILY PRN 01/26/20 09:00 01/26/20 08:59 DC Insulin Glargine (Lantus Syringe) 25 unit DAILY 01/24/20 09:00 01/27/20 09:59 25 UNIT Insulin Human Lispro (HumaLOG) 0-9 UNITS TIDWMEALS 01/24/20 08:00 01/27/20 10:00 4 UNITS Lactobacillus Rhamnosus (Culturelle) 1 cap BID 01/23/20 21:00 01/27/20 09:37 1 CAP Latanoprost (Xalatan) 1 drop QHS 01/23/20 21:00 01/26/20 22:15 1 DROP Levothyroxine Sodium (Synthroid) 100 mcg DAILY 01/24/20 09:00 01/27/20 09:38 100 MCG Lorazepam (Ativan Inj) 1 mg PRN Q4HRS PRN 01/23/20 18:00 Lubiprostone (Amitiza) 24 mcg BIDWMEALS 01/24/20 08:00 01/27/20 09:37 24 MCG Metoclopramide HCl (Reglan) 2.5 mg QIDACHS 01/23/20 21:00 01/27/20 09:37 2.5 MG Midodrine (Proamatine) 10 mg QMWF@1800 01/24/20 18:00 Niacin (Niaspan) 500 mg QHS 01/23/20 21:00 01/26/20 22:16 500 MG Non-Formulary Medication (Glycerin/Dimeth/ Surfactants (Cavilon One-Step Skin Care Lot)) 236 ml DAILY 01/24/20 09:00 01/23/20 19:04 DC Ondansetron HCl (Zofran Odt) 4 mg PRN Q6HRS PRN 01/23/20 19:15 01/24/20 16:09 DC Ondansetron HCl (Zofran) 4 mg 1X ONCE 01/24/20 16:15 01/24/20 16:36 DC 01/24/20 20:29 4 MG Pantoprazole Sodium (Protonix) 40 mg DAILY07 01/24/20 07:00 01/23/20 18:40 DC Polyethylene Glycol (miraLAX PACKET) 17 gm Q3DAYS 01/26/20 09:00 01/26/20 08:31 17 GM Psyllium Hydrophilic Mucilloid (Metamucil Fiber Packet) 1 pkt BID 01/24/20 21:00 01/27/20 09:36 1 PKT Ropinirole HCl (Requip) 1 mg QHS 01/23/20 21:00 01/26/20 22:22 1 MG Sennosides (Senna) 8.6 mg DAILY 01/24/20 09:00 01/27/20 09:36 8.6 MG Sertraline HCl (Zoloft) 100 mg DAILY 01/24/20 09:00 01/27/20 09:37 100 MG Sevelamer Carbonate (Renvela) 2.4 gm TIDWMEALS 01/24/20 08:00 01/27/20 09:38 2.4 GM Sodium Chloride 1,000 ml @ 400 mls/hr Q2H30M PRN 01/26/20 08:52 01/26/20 20:51 DC Timolol Maleate (Timoptic 0.5% Oph) 1 drop BID 01/23/20 21:00 01/27/20 09:40 1 DROP Tramadol HCl (Ultram) 50 mg PRN DAILY PRN 01/23/20 18:45 Vancomycin HCl (Vanco Per Pharmacy) 1 each PRN DAILY PRN 01/24/20 00:30 01/27/20 08:11 DC 01/26/20 09:12 1 EACH Vancomycin HCl (Vancomycin Random Level) 1 each 1X ONCE 01/26/20 05:00 01/26/20 05:01 DC 01/26/20 05:00 1 EACH Vancomycin HCl 500 mg/Sodium Chloride 100 ml @ 100 mls/hr QMWF 01/28/20 16:00 01/27/20 08:11 DC Vancomycin HCl 2 gm/Sodium Chloride 500 ml @ 250 mls/hr 1X ONCE 01/24/20 01:00 01/24/20 02:59 DC 01/24/20 00:58 250 MLS/HR Vitamin B Complex/ Vitamin C (Maribell-Prem) 1 tab DAILY 01/24/20 09:00 01/27/20 09:37 1 TAB Vitamin D (Vitamin D3) 5,000 unit DAILY 01/24/20 09:00 01/23/20 18:40 DC Zinc Sulfate (Orazinc) 220 mg DAILY 01/24/20 09:00 01/27/20 09:38 220 MG Lab Laboratory Tests Test 01/26/20 13:54 01/26/20 17:25 01/26/20 20:59 01/27/20 07:54 Glucose (Fingerstick) 127 mg/dL (70-99) 205 mg/dL (70-99) 372 mg/dL (70-99) 226 mg/dL (70-99) Results All relevant outside records, renal labs, imaging studies, telemetry/EKG's were reviewed. Justicifation of Admission Dx: Justifications for Admission: Justification of Admission Dx: Yes NEVILLE ZIEGLER MD Jan 27, 2020 10:23
[2020-01-27] MEDS ORDERED: TRAM50TA PO (14:13)
[2020-01-27] MEDS ORDERED: CEFD300C PO (14:13)
[2020-01-27] MEDS ORDERED: CEFDINIR 300 MG CAPSULE PO SCH (17:00)
[2020-01-27] MEDS: NIACIN ER 250 MG CAPSULE.ER PO SCH (20:58)
[2020-01-27] MEDS: FAMOTIDINE 20 MG TABLET. PO SCH (20:58)
[2020-01-27] MEDS: LATANOPROST 0.005% OPHTH SOLUTION 2.5ML BOTTLE. OU SCH (20:59)
[2020-01-27] MEDS: rOPINIRole 1 MG TABLET. PO SCH (21:01)
[2020-01-28 03:56] VITALS: BP 130/52
[2020-01-28 05:06] LABS: BASO % 0 % (0-3); EOS # 0.1 x10^3/uL (0.0-0.7); EOS % 1 % (0-3); HEMATOCRIT 34.6 % (36.0-47.0); HEMOGLOBIN 11.4 g/dL (12.0-15.5); LYMPH # 1.1 x10^3/uL (1.0-4.8); LYMPH % 15 % (24-48); MEAN CORPUSCULAR HEMOGLOBIN 35 pg (25-35); MEAN CORPUSCULAR HGB CONC 33 g/dL (31-37); MEAN CORPUSCULAR VOLUME 105 fL (79-100); MONO # 0.9 x10^3/uL (0.0-1.1); MONO % 11 % (0-9); NEUT # 5.5 x10^3/uL (1.8-7.7); NEUT % 72 % (31-73); PLATELET COUNT 156 x10^3/uL (140-400); RED BLOOD COUNT 3.29 x10^6/uL (3.50-5.40); WHITE BLOOD COUNT 7.6 x10^3/uL (4.0-11.0)
--- NOTE | 2020-01-28 06:58 | NUR ---
attempted weight on bedscale 56.1kg however not consistent with yesterday.
[2020-01-28] MEDS: MIDODRINE 5 MG TABLET PO SCH (07:00)
[2020-01-28 07:07] VITALS: BP 138/58
[2020-01-28] MEDS: METOCLOPRAMIDE 5 MG TABLET. PO SCH ×2 (07:30→12:09)
[2020-01-28] MEDS ORDERED: IV NORMAL SALINE 1000ML BAG 1,000 ML IV PRN ×2 (07:56)
[2020-01-28 07:58] LABS: CREATININE 5.3 mg/dL (0.6-1.0); GFR 8.1
[2020-01-28] MEDS: INSULIN LISPRO 300 UNITS/3 ML VIAL. SQ SCH ×4 (08:00→12:00)
[2020-01-28] MEDS ORDERED: DIALYSIS PATIENT. MC PRN (08:00)
[2020-01-28] MEDS: SEVELAMER CARBONATE 2.4 GM PACKET. PO SCH ×2 (08:00→12:11)
[2020-01-28] MEDS ORDERED: ALBUMIN HUMAN 25% 200 ML IV PRN (08:00)
--- NOTE | 2020-01-28 08:01 | PDOC ---
Infectious Disease Note Subjective Subjective Feels better this am - knows she is at [facility]. Feels back to baseline Denies F/C/S/N/V/D/SOA/rash ROS ROS o/w neg Vital Sign Vital Signs Vital Signs Date Time Temp Pulse Resp B/P (MAP) Pulse Ox O2 Delivery O2 Flow Rate FiO2 01/28/20 07:07 61 138/58 (84) 01/28/20 03:56 97.8 16 97 97.8 01/27/20 22:40 Nasal Cannula 2.0 Physical Exam PHYSICAL EXAM CONSTITUTIONAL: She is alert. She is cooperative. She is in no acute distress. In HD HEENT: Her left eye is scarred over. Some erythema of the conjunctivae. Oral cavity, oropharynx is clear. NECK: Supple. No JVD. LUNGS: Clear to auscultation. HEART: S1, S2. ABDOMEN: Morbidly obese. Soft. No guarding, no rebound. EXTREMITIES: Without clubbing, cyanosis. She has a left upper extremity AV fistula. She had a left AKA. SKIN: Warm to touch without signs of rash. NEUROLOGIC: She moves all extremities and answers questions. PSYCHIATRIC: Affect is pleasant. Labs Lab Laboratory Tests Test 01/27/20 12:04 01/27/20 16:58 01/27/20 20:48 01/28/20 04:00 Glucose (Fingerstick) 267 mg/dL (70-99) 169 mg/dL (70-99) 175 mg/dL (70-99) White Blood Count 7.6 x10^3/uL (4.0-11.0) Red Blood Count 3.29 x10^6/uL (3.50-5.40) Hemoglobin 11.4 g/dL (12.0-15.5) Hematocrit 34.6 % (36.0-47.0) Mean Corpuscular Volume 105 fL (79-100) Mean Corpuscular Hemoglobin 35 pg (25-35) Mean Corpuscular Hemoglobin Concent 33 g/dL (31-37) Red Cell Distribution Width 14.0 % (11.5-14.5) Platelet Count 156 x10^3/uL (140-400) Neutrophils (%) (Auto) 72 % (31-73) Lymphocytes (%) (Auto) 15 % (24-48) Monocytes (%) (Auto) 11 % (0-9) Eosinophils (%) (Auto) 1 % (0-3) Basophils (%) (Auto) 0 % (0-3) Neutrophils # (Auto) 5.5 x10^3/uL (1.8-7.7) Lymphocytes # (Auto) 1.1 x10^3/uL (1.0-4.8) Monocytes # (Auto) 0.9 x10^3/uL (0.0-1.1) Eosinophils # (Auto) 0.1 x10^3/uL (0.0-0.7) Basophils # (Auto) 0.0 x10^3/uL (0.0-0.2) Sodium Level 132 mmol/L (136-145) Potassium Level 4.0 mmol/L (3.5-5.1) Chloride Level 93 mmol/L (98-107) Carbon Dioxide Level 31 mmol/L (21-32) Anion Gap 8 (6-14) Blood Urea Nitrogen 53 mg/dL (7-20) Creatinine 5.3 mg/dL (0.6-1.0) Estimated GFR (Cockcroft-Gault) 8.1 BUN/Creatinine Ratio 10 (6-20) Glucose Level 120 mg/dL (70-99) Calcium Level 9.0 mg/dL (8.5-10.1) Micro CT 01/22 IMPRESSION: CHEST: 1. Degraded study due to motion artifact. 2. No sequela of trauma seen throughout the chest. 3. Heterogeneous attenuation pattern of the lungs favored mostly on account of scarring and atelectasis. An atypical infectious process is difficult to fully excluded but considered less likely and less clinical findings suggest otherwise. Abdomen/pelvis: 1. Degraded study due to motion, patient body habitus and streak artifact from the patient's arms. 2. No acute abnormality seen throughout the abdomen or pelvis. 3. Distention of the rectum with well-formed stool. Mild surrounding wall thickening and faint pericolonic inflammation suggesting some inflammation due to the extent of impacted stool. Soft tissue fullness at the posterior wall of the anorectal region where the lumen is somewhat tented. A colo-cutaneous fistula would be unusual but recommend correlation with patient history and direct inspection if needed (image 101 series 4 and image 37 series 9). 4. Senescent/chronic findings as detailed in the body the report. Microbiology 01/23/20 Blood Culture - Preliminary, Resulted NO GROWTH AFTER 2 DAYS Objective Assessment Encephalopathy - better UTI - POA 01/22 - no cults ordered 01/22 CKD on HD DM Fecal retention POA - + BM H/o C-diff Plan Plan of Care Clinically much improved rapidly so will Discont Vanc and Cefepime 01/22 Cont po Cefdinir and would treat for 2 more days. Treat in late afternoon so after HD Ok to d/c from ID standpoint D/w nursing LACHELLE RIVERA MD Jan 28, 2020 08:01
[2020-01-28 08:04] LABS: ALBUMIN 2.7 g/dL (3.4-5.0); ALBUMIN/GLOBULIN RATIO 0.6 (1.0-1.7); TOTAL BILIRUBIN 0.4 mg/dL (0.2-1.0); TOTAL PROTEIN 6.9 g/dL (6.4-8.2)
--- NOTE | 2020-01-28 08:30 | PDOC ---
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 According to nursing facility patient is normally fully alert and oriented. They state that they found her unresponsive in bed. They called an ambulance and on the way here patient became more awake and alert. She then was able to tell us her name and location but was otherwise disoriented. She was moving all extremities. She was unable to provide us any history. Her only c omplaint was fatigue. She then became unresponsive again. On imaging found with fecal impaction. UA positive for blood leukocyte esterase protein. Labs otherwise consistent with ESRD, NA 131, WBC 5.5, Hb 11.1, platelets 152 MCV is 107 01/25: Afebrile. WBC 5.5. Urine culture pending. Going to dialysis today she has no complaints. Very pleasantly confused. 01/26: Stable, confused, but mentally improved. Still waiting for final urine culture as she is improved, she is transition to cefdinir per ID. Afebrile overnight. Mentally at her baseline knows she is at [place]. Discussed with ID to send out on 2 additional days of cefdinir after dialysis. Likely UTI caused encephalopathy, then cefepime continued it. Vitals Vitals Vital Signs Date Time Temp Pulse Resp B/P (MAP) Pulse Ox O2 Delivery O2 Flow Rate FiO2 01/28/20 07:07 61 138/58 (84) 01/28/20 03:56 97.8 16 97 97.8 01/27/20 22:40 Nasal Cannula 2.0 Physical Exam Physical Exam CONSTITUTIONAL: She is alert. She is cooperative. She is in no acute distress. In HD HEENT: Her left eye is scarred over. Some erythema of the conjunctivae. Oral cavity, oropharynx is clear. NECK: Supple. No JVD. LUNGS: Clear to auscultation. HEART: S1, S2. ABDOMEN: Morbidly obese. Soft. No guarding, no rebound. EXTREMITIES: Without clubbing, cyanosis. She has a left upper extremity AV fistula. She had a left AKA. SKIN: Warm to touch without signs of rash. NEUROLOGIC: She moves all extremities and answers questions. PSYCHIATRIC: Affect is pleasant. General: No acute distress, Other (Pleasantly confused this might be her baseline?) Heart: Regular rate Lungs: Clear, Other Abdomen: Normal bowel sounds, Soft Extremities: No cyanosis, Normal pulses Skin: No rashes Labs LABS Laboratory Tests Test 01/27/20 12:04 01/27/20 16:58 01/27/20 20:48 01/28/20 04:00 Glucose (Fingerstick) 267 mg/dL (70-99) 169 mg/dL (70-99) 175 mg/dL (70-99) White Blood Count 7.6 x10^3/uL (4.0-11.0) Red Blood Count 3.29 x10^6/uL (3.50-5.40) Hemoglobin 11.4 g/dL (12.0-15.5) Hematocrit 34.6 % (36.0-47.0) Mean Corpuscular Volume 105 fL (79-100) Mean Corpuscular Hemoglobin 35 pg (25-35) Mean Corpuscular Hemoglobin Concent 33 g/dL (31-37) Red Cell Distribution Width 14.0 % (11.5-14.5) Platelet Count 156 x10^3/uL (140-400) Neutrophils (%) (Auto) 72 % (31-73) Lymphocytes (%) (Auto) 15 % (24-48) Monocytes (%) (Auto) 11 % (0-9) Eosinophils (%) (Auto) 1 % (0-3) Basophils (%) (Auto) 0 % (0-3) Neutrophils # (Auto) 5.5 x10^3/uL (1.8-7.7) Lymphocytes # (Auto) 1.1 x10^3/uL (1.0-4.8) Monocytes # (Auto) 0.9 x10^3/uL (0.0-1.1) Eosinophils # (Auto) 0.1 x10^3/uL (0.0-0.7) Basophils # (Auto) 0.0 x10^3/uL (0.0-0.2) Sodium Level 132 mmol/L (136-145) Potassium Level 4.0 mmol/L (3.5-5.1) Chloride Level 93 mmol/L (98-107) Carbon Dioxide Level 31 mmol/L (21-32) Anion Gap 8 (6-14) Blood Urea Nitrogen 53 mg/dL (7-20) Creatinine 5.3 mg/dL (0.6-1.0) Estimated GFR (Cockcroft-Gault) 8.1 BUN/Creatinine Ratio 10 (6-20) Glucose Level 120 mg/dL (70-99) Calcium Level 9.0 mg/dL (8.5-10.1) Total Bilirubin 0.4 mg/dL (0.2-1.0) Aspartate Amino Transf (AST/SGOT) 16 U/L (15-37) Alanine Aminotransferase (ALT/SGPT) 15 U/L (14-59) Alkaline Phosphatase 177 U/L (46-116) Total Protein 6.9 g/dL (6.4-8.2) Albumin 2.7 g/dL (3.4-5.0) Albumin/Globulin Ratio 0.6 (1.0-1.7) Assessment and Plan Assessmemt and Plan Problems Medical Problems: (1) Altered mental status Status: Acute Comment Review of Relevant I have reviewed the following items dat (where applicable) has been applied. Labs Laboratory Tests Test 01/26/20 13:54 01/26/20 17:25 01/26/20 20:59 01/27/20 07:54 Glucose (Fingerstick) 127 mg/dL (70-99) 205 mg/dL (70-99) 372 mg/dL (70-99) 226 mg/dL (70-99) Test 01/27/20 12:04 01/27/20 16:58 01/27/20 20:48 01/28/20 04:00 Glucose (Fingerstick) 267 mg/dL (70-99) 169 mg/dL (70-99) 175 mg/dL (70-99) White Blood Count 7.6 x10^3/uL (4.0-11.0) Red Blood Count 3.29 x10^6/uL (3.50-5.40) Hemoglobin 11.4 g/dL (12.0-15.5) Hematocrit 34.6 % (36.0-47.0) Mean Corpuscular Volume 105 fL (79-100) Mean Corpuscular Hemoglobin 35 pg (25-35) Mean Corpuscular Hemoglobin Concent 33 g/dL (31-37) Red Cell Distribution Width 14.0 % (11.5-14.5) Platelet Count 156 x10^3/uL (140-400) Neutrophils (%) (Auto) 72 % (31-73) Lymphocytes (%) (Auto) 15 % (24-48) Monocytes (%) (Auto) 11 % (0-9) Eosinophils (%) (Auto) 1 % (0-3) Basophils (%) (Auto) 0 % (0-3) Neutrophils # (Auto) 5.5 x10^3/uL (1.8-7.7) Lymphocytes # (Auto) 1.1 x10^3/uL (1.0-4.8) Monocytes # (Auto) 0.9 x10^3/uL (0.0-1.1) Eosinophils # (Auto) 0.1 x10^3/uL (0.0-0.7) Basophils # (Auto) 0.0 x10^3/uL (0.0-0.2) Sodium Level 132 mmol/L (136-145) Potassium Level 4.0 mmol/L (3.5-5.1) Chloride Level 93 mmol/L (98-107) Carbon Dioxide Level 31 mmol/L (21-32) Anion Gap 8 (6-14) Blood Urea Nitrogen 53 mg/dL (7-20) Creatinine 5.3 mg/dL (0.6-1.0) Estimated GFR (Cockcroft-Gault) 8.1 BUN/Creatinine Ratio 10 (6-20) Glucose Level 120 mg/dL (70-99) Calcium Level 9.0 mg/dL (8.5-10.1) Total Bilirubin 0.4 mg/dL (0.2-1.0) Aspartate Amino Transf (AST/SGOT) 16 U/L (15-37) Alanine Aminotransferase (ALT/SGPT) 15 U/L (14-59) Alkaline Phosphatase 177 U/L (46-116) Total Protein 6.9 g/dL (6.4-8.2) Albumin 2.7 g/dL (3.4-5.0) Albumin/Globulin Ratio 0.6 (1.0-1.7) Laboratory Tests Test 01/27/20 12:04 01/27/20 16:58 01/27/20 20:48 01/28/20 04:00 Glucose (Fingerstick) 267 mg/dL (70-99) 169 mg/dL (70-99) 175 mg/dL (70-99) White Blood Count 7.6 x10^3/uL (4.0-11.0) Red Blood Count 3.29 x10^6/uL (3.50-5.40) Hemoglobin 11.4 g/dL (12.0-15.5) Hematocrit 34.6 % (36.0-47.0) Mean Corpuscular Volume 105 fL (79-100) Mean Corpuscular Hemoglobin 35 pg (25-35) Mean Corpuscular Hemoglobin Concent 33 g/dL (31-37) Red Cell Distribution Width 14.0 % (11.5-14.5) Platelet Count 156 x10^3/uL (140-400) Neutrophils (%) (Auto) 72 % (31-73) Lymphocytes (%) (Auto) 15 % (24-48) Monocytes (%) (Auto) 11 % (0-9) Eosinophils (%) (Auto) 1 % (0-3) Basophils (%) (Auto) 0 % (0-3) Neutrophils # (Auto) 5.5 x10^3/uL (1.8-7.7) Lymphocytes # (Auto) 1.1 x10^3/uL (1.0-4.8) Monocytes # (Auto) 0.9 x10^3/uL (0.0-1.1) Eosinophils # (Auto) 0.1 x10^3/uL (0.0-0.7) Basophils # (Auto) 0.0 x10^3/uL (0.0-0.2) Sodium Level 132 mmol/L (136-145) Potassium Level 4.0 mmol/L (3.5-5.1) Chloride Level 93 mmol/L (98-107) Carbon Dioxide Level 31 mmol/L (21-32) Anion Gap 8 (6-14) Blood Urea Nitrogen 53 mg/dL (7-20) Creatinine 5.3 mg/dL (0.6-1.0) Estimated GFR (Cockcroft-Gault) 8.1 BUN/Creatinine Ratio 10 (6-20) Glucose Level 120 mg/dL (70-99) Calcium Level 9.0 mg/dL (8.5-10.1) Total Bilirubin 0.4 mg/dL (0.2-1.0) Aspartate Amino Transf (AST/SGOT) 16 U/L (15-37) Alanine Aminotransferase (ALT/SGPT) 15 U/L (14-59) Alkaline Phosphatase 177 U/L (46-116) Total Protein 6.9 g/dL (6.4-8.2) Albumin 2.7 g/dL (3.4-5.0) Albumin/Globulin Ratio 0.6 (1.0-1.7) Microbiology 01/23/20 Blood Culture - Preliminary, Resulted NO GROWTH AFTER 4 DAYS Medications Current Medications Lorazepam (Ativan Inj) 1 mg 1X ONCE IVP Last administered on 01/23/20at 13:14; Start 01/23/20 at 12:30; Stop 01/23/20 at 12:31; Status DC Cefepime HCl (Maxipime) 1 gm 1X ONCE IVP Last administered on 01/23/20at 14:26; Start 01/23/20 at 14:30; Stop 01/23/20 at 14:31; Status DC Cefepime HCl (Maxipime) 1 gm Q24H IVP Last administered on 01/26/20at 17:26; Start 01/24/20 at 17:00; Stop 01/27/20 at 08:11; Status DC Insulin Human Lispro (HumaLOG) 0-7 UNITS TIDWMEALS SQ ; Start 01/24/20 at 08:00; Stop 01/23/20 at 18:40; Status DC Dextrose (Dextrose 50%-Water Syringe) 12.5 gm PRN Q15MIN PRN IV SEE COMMENTS; Start 01/23/20 at 18:00 Acetaminophen (Tylenol) 325 mg PRN QID PRN PO MILD PAIN / TEMP > 100.3'F; Start 01/23/20 at 18:00; Stop 01/23/20 at 18:40; Status DC Carvedilol (Coreg) 3.125 mg BIDWMEALS PO ; Start 01/23/20 at 21:00; Stop 01/23/20 at 18:40; Status DC Clopidogrel Bisulfate (Plavix) 75 mg DAILY PO ; Start 01/24/20 at 09:00; Stop 01/23/20 at 18:40; Status DC Gabapentin (Neurontin) 100 mg TID PO ; Start 01/23/20 at 21:00; Stop 01/23/20 at 18:40; Status DC Levothyroxine Sodium (Synthroid) 100 mcg DAILY PO ; Start 01/24/20 at 09:00; Stop 01/23/20 at 18:40; Status DC Midodrine (Proamatine) 2.5 mg DAILY PO ; Start 01/24/20 at 09:00; Stop 01/23/20 at 18:40; Status DC Ondansetron HCl (Zofran Odt) 4 mg PRN Q6HRS PRN PO NAUSEA/VOMITING; Start 01/23/20 at 18:00; Stop 01/23/20 at 18:40; Status DC Pantoprazole Sodium (Protonix) 40 mg DAILY07 PO ; Start 01/24/20 at 07:00; Stop 01/23/20 at 18:40; Status DC Polyethylene Glycol (miraLAX PACKET) 17 gm DAILY PO ; Start 01/24/20 at 09:00; Stop 01/23/20 at 18:40; Status DC Sevelamer Carbonate (Renvela) 2,400 mg TIDWMEALS PO ; Start 01/24/20 at 08:00; Stop 01/23/20 at 18:40; Status DC Zinc Sulfate (Orazinc) 220 mg DAILY PO ; Start 01/24/20 at 09:00; Stop 01/23/20 at 18:40; Status DC Vitamin D (Vitamin D3) 5,000 unit DAILY PO ; Start 01/24/20 at 09:00; Stop 01/23/20 at 18:40; Status DC Lorazepam (Ativan Inj) 1 mg PRN Q4HRS PRN IVP ANXIETY / AGITATION; Start 01/23/20 at 18:00 Heparin Sodium (Porcine) (Heparin Sodium) 5,000 unit Q12HR SQ Last administered on 01/27/20at 21:03; Start 01/23/20 at 21:00 Atorvastatin Calcium (Lipitor) 40 mg DAILY PO Last administered on 01/27/20at 09:38; Start 01/24/20 at 09:00 Clopidogrel Bisulfate (Plavix) 75 mg DAILY PO Last administered on 01/27/20 09:38; Start 01/24/20 at 09:00 Famotidine (Pepcid) 20 mg HS PO Last administered on 01/27/20 20:58; Start 01/23/20 at 21:00 Vitamin B Complex/ Vitamin C (Maribell-Prem) 1 tab DAILY PO Last administered on 01/27/20 09:37; Start 01/24/20 at 09:00 Gabapentin (Neurontin) 100 mg TID PO Last administered on 01/27/20 20:58; Start 01/23/20 at 21:00 Levothyroxine Sodium (Synthroid) 100 mcg DAILY PO Last administered on 01/27/20 09:38; Start 01/24/20 at 09:00 Metoclopramide HCl (Reglan) 2.5 mg QIDACHS PO Last administered on 01/27/20 21:01; Start 01/23/20 at 21:00 Polyethylene Glycol (miraLAX PACKET) 17 gm Q3DAYS PO Last administered on 08:31; Start 01/26/20 at 09:00 Artificial Tears (Artificial Tears) 1 drop BID OU Last administered on 01/27/20 20:58; Start 01/23/20 at 21:00 Psyllium Hydrophilic Mucilloid (Metamucil Fiber Packet) 17 pkt BID PO ; Start 01/23/20 at 21:00; Stop 01/24/20 at 11:08; Status DC Ropinirole HCl (Requip) 0.25 mg DAILY PO Last administered on 01/26/20 22:16; Start 01/24/20 at 09:00 Ropinirole HCl (Requip) 1 mg QHS PO Last administered on 01/27/20 21:01; Start 01/23/20 at 21:00 Sennosides (Senna) 8.6 mg DAILY PO Last administered on 01/27/20 09:36; Start 01/24/20 at 09:00 Sevelamer Carbonate (Renvela) 2.4 gm TIDWMEALS PO Last administered on 01/27/20 17:47; Start 01/24/20 at 08:00 Tramadol HCl (Ultram) 50 mg PRN DAILY PRN PO PAIN; Start 01/23/20 at 18:45 Latanoprost (Xalatan) 1 drop QHS OU Last administered on 01/27/20at 20:59; Start 01/23/20 at 21:00 Timolol Maleate (Timoptic 0.5% Ophth) 1 drop BID OU Last administered on 01/27/20at 20:59; Start 01/23/20 at 21:00 Non-Formulary Medication (Glycerin/Dimeth/ Surfactants (Cavilon One-Step Skin Care Lot)) 236 ml DAILY TP ; Start 01/24/20 at 09:00; Stop 01/23/20 at 19:04; Status DC Insulin Human Lispro (HumaLOG) 10 units TIDWMEALS SQ Last administered on 01/27/20at 17:53; Start 01/24/20 at 08:00 Insulin Glargine (Lantus Syringe) 22 unit QHS SQ Last administered on 01/27/20at 21:03; Start 01/23/20 at 21:00 Insulin Glargine (Lantus Syringe) 25 unit DAILY SQ Last administered on 01/27/20at 09:59; Start 01/24/20 at 09:00 Lactobacillus Rhamnosus (Culturelle) 1 cap BID PO Last administered on 01/27/20at 20:58; Start 01/23/20 at 21:00 Lubiprostone (Amitiza) 24 mcg BIDWMEALS PO Last administered on 01/27/20at 17:47; Start 01/24/20 at 08:00 Midodrine (Proamatine) 10 mg QMWF@0700 PO ; Start 01/24/20 at 07:00 Midodrine (Proamatine) 10 mg PRN Q8HRS PRN PO HYPOTENSION Last administered on 01/25/20at 14:21; Start 01/24/20 at 07:00 Niacin (Niaspan) 500 mg QHS PO Last administered on 01/27/20at 20:58; Start 01/23/20 at 21:00 Ondansetron HCl (Zofran Odt) 4 mg PRN Q6HRS PRN PO NAUSEA/VOMITING; Start 01/23/20 at 19:15; Stop 01/24/20 at 16:09; Status DC Zinc Sulfate (Orazinc) 220 mg DAILY PO Last administered on 01/27/20 09:38; Start 01/24/20 at 09:00 Sertraline HCl (Zoloft) 100 mg DAILY PO Last administered on 01/27/20at 09:37; Start 01/24/20 at 09:00 Insulin Human Lispro (HumaLOG) 0-9 UNITS TIDWMEALS SQ Last administered on 01/27/20at 17:54; Start 01/24/20 at 08:00 Dextrose (Dextrose 50%-Water Syringe) 12.5 gm PRN Q15MIN PRN IV SEE COMMENTS; Start 01/23/20 at 19:00; Status Cancel Brimonidine Tartrate (Alphagan) 1 drop BID OU Last administered on 01/27/20at 20:59; Start 01/23/20 at 21:00 Midodrine (Proamatine) 10 mg QMWF@1300 PO Last administered on 01/24/20at 12:58; Start 01/24/20 at 13:00 Midodrine (Proamatine) 10 mg QMWF@1800 PO ; Start 01/24/20 at 18:00 Vancomycin HCl (Vanco Per Pharmacy) 1 each PRN DAILY PRN MC SEE COMMENTS Last administered on 01/26/20 09:12; Start 01/24/20 at 00:30; Stop 01/27/20 at 08:11; Status DC Hydrocortisone Sodium Succinate (Solu-CORTEF) 100 mg Q8HRS IVP Last administered on 01/27/20at 05:53; Start 01/24/20 at 06:00; Stop 01/27/20 at 11:43; Status DC Vancomycin HCl 2 gm/Sodium Chloride 500 ml @ 250 mls/hr 1X ONCE IV Last administered on 01/24/20at 00:58; Start 01/24/20 at 01:00; Stop 01/24/20 at 02:59; Status DC Vancomycin HCl (Vancomycin Random Level) 1 each 1X ONCE MC Last administered on 01/26/20at 05:00; Start 01/26/20 at 05:00; Stop 01/26/20 at 05:01; Status DC Psyllium Hydrophilic Mucilloid (Metamucil Fiber Packet) 1 pkt BID PO Last administered on 01/27/20at 20:58; Start 01/24/20 at 21:00 Ondansetron HCl (Zofran) 4 mg STK-MED ONCE .ROUTE ; Start 01/24/20 at 16:03; Stop 01/24/20 at 16:03; Status DC Ondansetron HCl (Zofran) 4 mg PRN Q8HRS PRN IVP NAUSEA/VOMITING; Start 01/24/20 at 16:15 Sodium Chloride 1,000 ml @ 1,000 mls/hr Q1H PRN IV hypotension; Start 01/24/20 at 16:08; Stop 01/24/20 at 22:07; Status DC Albumin Human 200 ml @ 200 mls/hr 1X PRN PRN IV Hypotension; Start 01/24/20 at 16:15; Stop 01/24/20 at 22:14; Status DC Sodium Chloride 1,000 ml @ 400 mls/hr Q2H30M PRN IV PATENCY; Start 01/24/20 at 16:08; Stop 01/25/20 at 04:07; Status DC Info (PHARMACY MONITORING -- do not chart) 1 each PRN DAILY PRN MC SEE COMMENTS; Start 01/24/20 at 16:15; Status UNV Info (PHARMACY MONITORING -- do not chart) 1 each PRN DAILY PRN MC SEE COMMENTS; Start 01/24/20 at 16:15 Ondansetron HCl (Zofran) 4 mg 1X ONCE IV Last administered on 01/24/20at 20:29; Start 01/24/20 at 16:15; Stop 01/24/20 at 16:36; Status DC Sodium Chloride 500 ml @ 500 mls/hr 1X ONCE IV Last administered on 01/25/20at 16:45; Start 01/25/20 at 16:45; Stop 01/25/20 at 17:44; Status DC Sodium Chloride 500 ml @ 500 mls/hr 1X ONCE IV ; Start 01/25/20 at 19:00; Stop 01/25/20 at 19:59; Status DC Sodium Chloride 1,000 ml @ 1,000 mls/hr Q1H PRN IV hypotension; Start 01/26/20 at 08:52; Stop 01/26/20 at 14:51; Status DC Albumin Human 200 ml @ 200 mls/hr 1X PRN PRN IV Hypotension; Start 01/26/20 at 09:00; Stop 01/26/20 at 14:59; Status DC Sodium Chloride 1,000 ml @ 400 mls/hr Q2H30M PRN IV PATENCY; Start 01/26/20 at 08:52; Stop 01/26/20 at 20:51; Status DC Info (PHARMACY MONITORING -- do not chart) 1 each PRN DAILY PRN MC SEE COMMENTS; Start 01/26/20 at 09:00; Stop 01/26/20 at 08:59; Status DC Info (PHARMACY MONITORING -- do not chart) 1 each PRN DAILY PRN MC SEE COMMENTS; Start 01/26/20 at 09:00; Stop 01/26/20 at 08:59; Status DC Vancomycin HCl 500 mg/Sodium Chloride 100 ml @ 100 mls/hr QMWF IV ; Start 01/28/20 at 16:00; Stop 01/27/20 at 08:11; Status DC Cefdinir (Omnicef) 300 mg DAILY@1700 PO Last administered on 01/27/20at 17:47; Start 01/27/20 at 17:00 Sodium Chloride 1,000 ml @ 1,000 mls/hr Q1H PRN IV hypotension; Start 01/28/20 at 07:56; Stop 01/28/20 at 13:55 Albumin Human 200 ml @ 200 mls/hr 1X PRN PRN IV Hypotension; Start 01/28/20 at 08:00; Stop 01/28/20 at 13:59 Sodium Chloride 1,000 ml @ 400 mls/hr Q2H30M PRN IV PATENCY; Start 01/28/20 at 07:56; Stop 01/28/20 at 19:55 Info (PHARMACY MONITORING -- do not chart) 1 each PRN DAILY PRN MC SEE COMMENTS; Start 01/28/20 at 08:00 Active Scripts Active Cefdinir 300 Mg Capsule 300 Mg PO DAILY@1700 3 Days Tramadol Hcl 50 Mg Tablet 50 Mg PO PRN DAILY PRN 6 Days Reported Zoloft (Sertraline Hcl) 100 Mg Tablet 1 Tab PO DAILY Zofran (Ondansetron Hcl) 4 Mg Tablet 1 Tab PO Q6HRS Zinc 50 Mg Tablet 1 Tab PO DAILY 30 Days Synthroid (Levothyroxine Sodium) 100 Mcg Tablet 1 Tab PO DAILY Senna (Sennosides) 8.6 Mg Tablet 8.6 Mg PO DAILY Ropinirole Hcl 1 Mg Tablet 1 Mg PO DAILY Ropinirole Hcl 0.25 Mg Tablet 0.25 Mg PO DAILY Renvela (Sevelamer Carbonate) 2.4 Gm Powd.pack 2.4 Gm PO TIDWMEALS Maribell-Prem Tablet (Folic Acid/Vitamin B Comp W-C) 0.8 Mg Tablet 1 Tab PO DAILY 30 Days Reglan (Metoclopramide Hcl) 10 Mg Tablet 1 Tab PO QID 30 Days before food and bedtime Clopidogrel (Clopidogrel Bisulfate) 75 Mg Tablet 1 Tab PO DAILY Pepcid (Famotidine) 20 Mg Tablet 20 Mg PO HS Novolog (Insulin Aspart) 100 Unit/1 Ml Cartridge 0-16 Unit SQ TIDAC Novolog (Insulin Aspart) 100 Unit/1 Ml Cartridge 10 Unit SQ TIDAC Niacor (Niacin) 500 Mg Tablet 1 Tab PO QHS 30 Days Miralax (Polyethylene Glycol 3350) 17 Gm Powd.pack 1 Packet PO Q3DAYS 2 Days dissolve in water Midodrine Hcl 10 Mg Tablet 10 Mg PO BID MWF Midodrine Hcl 10 Mg Tablet 10 Mg PO PRN Q8HRS PRN Metamucil Fiber Singles Packet (Psyllium Husk/Aspartame) 3.4 Gm Powd.pack 17 Gm PO BID Lumigan (Bimatoprost) 2.5 Ml Drops 1 Drop EACHEYE QHS Linzess (Linaclotide) 145 Mcg Capsule 145 Mcg PO DAILY07 Levemir (Insulin Detemir) 100 Unit/1 Ml Vial 25 Unit SQ [id number] Levemir (Insulin Detemir) 100 Unit/1 Ml Vial 22 Unit SQ QHS Probiotic (Lactobacillus Acidophilus) 1 Each Capsule 1 Cap PO DAILY 10 Days Glucose Gel (Dextrose) 38 Gm Gel..gram. 38 Gm PO PRN PRN Gabapentin (Gabapentin) 100 Mg Capsule 100 Mg PO TID B-12 (Cyanocobalamin (Vitamin B-12)) 1,000 Mcg Tablet 1 Tab PO DAILY 30 Days Combigan Eye Drops (Brimonidine Tartrate/Timolol) 5 Ml Drops 5 Ml OP BID Cavilon One-Step Skin Care Lot (Glycerin/Dimeth/Surfactants) 236 Ml Lotion 236 Ml TP DAILY Atorvastatin Calcium 40 Mg Tablet 1 Tab PO DAILY Artificial Tears (Polyvinyl Alcohol) 15 Ml Drops 1 Drop EACHEYE BID 20 Days Vitals/I & O Vital Sign - Last 24 Hours 01/27/20 01/27/20 01/27/20 01/27/20 08:40 11:00 15:00 19:53 Temp 98.7 98.3 98.2 98.7 98.3 98.2 Pulse 58 67 65 Resp 20 20 18 B/P (MAP) 163/63 (96) 164/81 (108) 158/64 (95) Pulse Ox 96 96 96 O2 Delivery Nasal Cannula Nasal Cannula Nasal Cannula Nasal Cannula O2 Flow Rate 2.0 2.0 2.0 2.0 01/27/20 01/27/20 01/27/20 01/28/20 20:00 22:40 22:49 03:56 Temp 97.4 97.8 97.4 97.8 Pulse 61 64 Resp 18 16 B/P (MAP) 188/65 (106) 128/55 (79) 130/52 (78) Pulse Ox 100 97 O2 Delivery Room Air Nasal Cannula O2 Flow Rate 2.0 01/28/20 01/28/20 07:00 07:07 Pulse 61 B/P (MAP) 138/58 138/58 (84) Intake and Output 01/27/20 01/27/20 01/28/20 15:00 23:00 07:00 Intake Total 400 ml 370 ml 200 ml Balance 400 ml 370 ml 200 ml Justicifation of Admission Dx: Justifications for Admission: Justification of Admission Dx: Yes DANIELLE MAYORGA MD Jan 28, 2020 08:30
[2020-01-28] MEDS: GABAPENTIN 100 MG CAPSULE. PO SCH (09:00)
[2020-01-28] MEDS: INSULIN GLARGINE SYRINGE. SQ SCH (09:00)
--- NOTE | 2020-01-28 09:22 | PDOC ---
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 moist/pink, Lungs: Clear to auscultation Heart: S1S2, no murmurs Abdomen: Normal bowel sounds, Soft, obese Extremities: No cyanosis, Skin: No rashes Neuro: grossly normal, Alert DIAGNOSIS/ASSESSMENT Assessment & Plan ESRD- On HD MWF @ [facility] [place] under Dr. Clemente's care seen on HD, tolerating well, continue as ordered, Augustine Carmona UTI/Sepsis - On Abx per ID acute confusion- Resolved poss seizure disorder or post-ictal CoVid negative COMMENT/RELEVANT DATA Meds Current Medications Medications (Trade) Dose Ordered Sig/Diana Start Time Stop Time Status Last Admin Dose Admin Acetaminophen (Tylenol) 325 mg PRN QID PRN 01/23/20 18:00 01/23/20 18:40 DC Albumin Human 200 ml @ 200 mls/hr 1X PRN PRN 01/28/20 08:00 01/28/20 13:59 Artificial Tears (Artificial Tears) 1 drop BID 01/23/20 21:00 01/27/20 20:58 1 DROP Atorvastatin Calcium (Lipitor) 40 mg DAILY 01/24/20 09:00 01/27/20 09:38 40 MG Brimonidine Tartrate (Alphagan) 1 drop BID 01/23/20 21:00 01/27/20 20:59 1 DROP Carvedilol (Coreg) 3.125 mg BIDWMEALS 01/23/20 21:00 01/23/20 18:40 DC Cefdinir (Omnicef) 300 mg DAILY@1700 01/27/20 17:00 01/27/20 17:47 300 MG Cefepime HCl (Maxipime) 1 gm Q24H 01/24/20 17:00 01/27/20 08:11 DC 01/26/20 17:26 1 GM Clopidogrel Bisulfate (Plavix) 75 mg DAILY 01/24/20 09:00 01/27/20 09:38 75 MG Dextrose (Dextrose 50%-Water Syringe) 12.5 gm PRN Q15MIN PRN 01/23/20 19:00 Cancel Famotidine (Pepcid) 20 mg HS 01/23/20 21:00 01/27/20 20:58 20 MG Gabapentin (Neurontin) 100 mg TID 01/23/20 21:00 01/27/20 20:58 100 MG Heparin Sodium (Porcine) (Heparin Sodium) 5,000 unit Q12HR 01/23/20 21:00 01/27/20 21:03 5,000 UNIT Hydrocortisone Sodium Succinate (Solu-CORTEF) 100 mg Q8HRS 01/24/20 06:00 01/27/20 11:43 DC 01/27/20 05:53 100 MG Info (PHARMACY MONITORING -- do not chart) 1 each PRN DAILY PRN 01/28/20 08:00 Insulin Glargine (Lantus Syringe) 25 unit DAILY 01/24/20 09:00 01/27/20 09:59 25 UNIT Insulin Human Lispro (HumaLOG) 0-9 UNITS TIDWMEALS 01/24/20 08:00 01/27/20 17:54 4 UNITS Lactobacillus Rhamnosus (Culturelle) 1 cap BID 01/23/20 21:00 01/27/20 20:58 1 CAP Latanoprost (Xalatan) 1 drop QHS 01/23/20 21:00 01/27/20 20:59 1 DROP Levothyroxine Sodium (Synthroid) 100 mcg DAILY 01/24/20 09:00 01/27/20 09:38 100 MCG Lorazepam (Ativan Inj) 1 mg PRN Q4HRS PRN 01/23/20 18:00 Lubiprostone (Amitiza) 24 mcg BIDWMEALS 01/24/20 08:00 01/27/20 17:47 24 MCG Metoclopramide HCl (Reglan) 2.5 mg QIDACHS 01/23/20 21:00 01/27/20 21:01 2.5 MG Midodrine (Proamatine) 10 mg QMWF@1800 01/24/20 18:00 Niacin (Niaspan) 500 mg QHS 01/23/20 21:00 01/27/20 20:58 500 MG Non-Formulary Medication (Glycerin/Dimeth/ Surfactants (Cavilon One-Step Skin Care Lot)) 236 ml DAILY 01/24/20 09:00 01/23/20 19:04 DC Ondansetron HCl (Zofran Odt) 4 mg PRN Q6HRS PRN 01/23/20 19:15 01/24/20 16:09 DC Ondansetron HCl (Zofran) 4 mg 1X ONCE 01/24/20 16:15 01/24/20 16:36 DC 01/24/20 20:29 4 MG Pantoprazole Sodium (Protonix) 40 mg DAILY07 01/24/20 07:00 01/23/20 18:40 DC Polyethylene Glycol (miraLAX PACKET) 17 gm Q3DAYS 01/26/20 09:00 01/26/20 08:31 17 GM Psyllium Hydrophilic Mucilloid (Metamucil Fiber Packet) 1 pkt BID 01/24/20 21:00 01/27/20 20:58 1 PKT Ropinirole HCl (Requip) 1 mg QHS 01/23/20 21:00 01/27/20 21:01 1 MG Sennosides (Senna) 8.6 mg DAILY 01/24/20 09:00 01/27/20 09:36 8.6 MG Sertraline HCl (Zoloft) 100 mg DAILY 01/24/20 09:00 01/27/20 09:37 100 MG Sevelamer Carbonate (Renvela) 2.4 gm TIDWMEALS 01/24/20 08:00 01/27/20 17:47 2.4 GM Sodium Chloride 1,000 ml @ 400 mls/hr Q2H30M PRN 01/28/20 07:56 01/28/20 19:55 Timolol Maleate (Timoptic 0.5% Oph) 1 drop BID 01/23/20 21:00 01/27/20 20:59 1 DROP Tramadol HCl (Ultram) 50 mg PRN DAILY PRN 01/23/20 18:45 Vancomycin HCl (Vanco Per Pharmacy) 1 each PRN DAILY PRN 01/24/20 00:30 01/27/20 08:11 DC 01/26/20 09:12 1 EACH Vancomycin HCl (Vancomycin Random Level) 1 each 1X ONCE 01/26/20 05:00 01/26/20 05:01 DC 01/26/20 05:00 1 EACH Vancomycin HCl 500 mg/Sodium Chloride 100 ml @ 100 mls/hr QMWF 01/28/20 16:00 01/27/20 08:11 DC Vancomycin HCl 2 gm/Sodium Chloride 500 ml @ 250 mls/hr 1X ONCE 01/24/20 01:00 01/24/20 02:59 DC 01/24/20 00:58 250 MLS/HR Vitamin B Complex/ Vitamin C (Maribell-Prem) 1 tab DAILY 01/24/20 09:00 01/27/20 09:37 1 TAB Vitamin D (Vitamin D3) 5,000 unit DAILY 01/24/20 09:00 01/23/20 18:40 DC Zinc Sulfate (Orazinc) 220 mg DAILY 01/24/20 09:00 01/27/20 09:38 220 MG Lab Laboratory Tests Test 01/27/20 12:04 01/27/20 16:58 01/27/20 20:48 01/28/20 04:00 Glucose (Fingerstick) 267 mg/dL (70-99) 169 mg/dL (70-99) 175 mg/dL (70-99) White Blood Count 7.6 x10^3/uL (4.0-11.0) Red Blood Count 3.29 x10^6/uL (3.50-5.40) Hemoglobin 11.4 g/dL (12.0-15.5) Hematocrit 34.6 % (36.0-47.0) Mean Corpuscular Volume 105 fL (79-100) Mean Corpuscular Hemoglobin 35 pg (25-35) Mean Corpuscular Hemoglobin Concent 33 g/dL (31-37) Red Cell Distribution Width 14.0 % (11.5-14.5) Platelet Count 156 x10^3/uL (140-400) Neutrophils (%) (Auto) 72 % (31-73) Lymphocytes (%) (Auto) 15 % (24-48) Monocytes (%) (Auto) 11 % (0-9) Eosinophils (%) (Auto) 1 % (0-3) Basophils (%) (Auto) 0 % (0-3) Neutrophils # (Auto) 5.5 x10^3/uL (1.8-7.7) Lymphocytes # (Auto) 1.1 x10^3/uL (1.0-4.8) Monocytes # (Auto) 0.9 x10^3/uL (0.0-1.1) Eosinophils # (Auto) 0.1 x10^3/uL (0.0-0.7) Basophils # (Auto) 0.0 x10^3/uL (0.0-0.2) Sodium Level 132 mmol/L (136-145) Potassium Level 4.0 mmol/L (3.5-5.1) Chloride Level 93 mmol/L (98-107) Carbon Dioxide Level 31 mmol/L (21-32) Anion Gap 8 (6-14) Blood Urea Nitrogen 53 mg/dL (7-20) Creatinine 5.3 mg/dL (0.6-1.0) Estimated GFR (Cockcroft-Gault) 8.1 BUN/Creatinine Ratio 10 (6-20) Glucose Level 120 mg/dL (70-99) Calcium Level 9.0 mg/dL (8.5-10.1) Total Bilirubin 0.4 mg/dL (0.2-1.0) Aspartate Amino Transf (AST/SGOT) 16 U/L (15-37) Alanine Aminotransferase (ALT/SGPT) 15 U/L (14-59) Alkaline Phosphatase 177 U/L (46-116) Total Protein 6.9 g/dL (6.4-8.2) Albumin 2.7 g/dL (3.4-5.0) Albumin/Globulin Ratio 0.6 (1.0-1.7) Results All relevant outside records, renal labs, imaging studies, telemetry/EKG's were reviewed. Justicifation of Admission Dx: Justifications for Admission: Justification of Admission Dx: Yes NEVILLE ZIEGLER MD Jan 28, 2020 09:22
--- NOTE | 2020-01-28 10:59 | SNU/HH DC ---
DISCHARGE ORDERS DISCHARGE INFORMATION: DISCHARGE DATE: Jan 28, 2020 FINAL DIAGNOSIS Problems Medical Problems: (1) Altered mental status Status: Acute CONDITION ON DISCHARGE: Stable CODE STATUS: Code Status: Full POST DISCHARGE ORDERS: ACTIVITY ORDERS: Activity as tolerated WEIGHT BEARING STATUS: As tolerated BATHING ORDERS: Shower-keep dressing dry DIET AFTER DISCHARGE: Renal CHECKS AFTER DISCHARGE: CHECKS AFTER DISCHARGE: Check blood sugar, ac/hs TREATMENT/EQUIPMENT ORDERS: ADAPTIVE EQUIPMENT NEEDED: Wheelchair INFUSION EQUIPMENT NEEDED: AV shunt Physical Therapy For: Evalulation/Treatment Occupational Therapy For: Evaluation/Treatment DISCHARGE MEDICATIONS: Home Meds Active Scripts Cefdinir (CEFDINIR) 300 Mg Capsule, 300 MG PO DAILY@1700 for UTI for 3 Days, #3 CAP Prov:DANIELLE MAYORGA MD 01/27/20 Tramadol Hcl (TRAMADOL HCL) 50 Mg Tablet, 50 MG PO PRN DAILY PRN for PAIN for 6 Days, #6 TAB 0 Refills Prov:DANIELLE MAYORGA MD 01/27/20 Reported Medications Sertraline Hcl (ZOLOFT) 100 Mg Tablet, 1 TAB PO DAILY for depression, #30 TAB 5 Refills 01/23/20 Ondansetron Hcl (ZOFRAN) 4 Mg Tablet, 1 TAB PO Q6HRS for nausea, #20 TAB 20 Zinc (ZINC) 50 Mg Tablet, 1 TAB PO DAILY for ulcers for 30 Days, #30 TAB 0 Refills 01/23/20 Levothyroxine Sodium (SYNTHROID) 100 Mcg Tablet, 1 TAB PO DAILY for daily, #30 TAB 5 Refills 01/23/20 Sennosides (SENNA) 8.6 Mg Tablet, 8.6 MG PO DAILY for constipation, TAB 01/23/20 Ropinirole Hcl (ROPINIROLE HCL) 1 Mg Tablet, 1 MG PO DAILY for QHS, TAB 01/23/20 Ropinirole Hcl (ROPINIROLE HCL) 0.25 Mg Tablet, 0.25 MG PO DAILY for a, TAB 01/23/20 Sevelamer Carbonate (RENVELA) 2.4 Gm Powd.pack, 2.4 GM PO TIDWMEALS for dailysis , PACKET 01/23/20 Folic Acid/Vitamin B Comp W-C (RAJIV-NEVAEH TABLET) 0.8 Mg Tablet, 1 TAB PO DAILY for Dialysis for 30 Days, #30 TAB 0 Refills 01/23/20 Metoclopramide Hcl (REGLAN) 10 Mg Tablet, 1 TAB PO QID for QID for 30 Days, #120 TAB 0 Refills before food and bedtime 01/23/20 Clopidogrel Bisulfate (CLOPIDOGREL) 75 Mg Tablet, 1 TAB PO DAILY for CAD, #90 TAB 1 Refill 01/23/20 Famotidine (PEPCID) 20 Mg Tablet, 20 MG PO HS for BID, TAB 01/23/20 Insulin Aspart (NOVOLOG) 100 Unit/1 Ml Cartridge, 0-16 UNIT SQ TIDAC for DM, EACH 01/23/20 Insulin Aspart (NOVOLOG) 100 Unit/1 Ml Cartridge, 10 UNIT SQ TIDAC for DM, EACH 01/23/20 Niacin (NIACOR) 500 Mg Tablet, 1 TAB PO QHS for hyperlipidemia for 30 Days, #30 TAB 0 Refills 01/23/20 Polyethylene Glycol 3350 (MIRALAX) 17 Gm Powd.pack, 1 PACKET PO Q3DAYS for constipation for 2 Days, #2 PACKET 0 Refills dissolve in water 01/23/20 Midodrine Hcl (MIDODRINE HCL) 10 Mg Tablet, 10 MG PO BID MWF for on dialysis days , TAB 01/23/20 Midodrine Hcl (MIDODRINE HCL) 10 Mg Tablet, 10 MG PO PRN Q8HRS PRN for Low blood pressure, TAB 01/23/20 Psyllium Husk/Aspartame (METAMUCIL FIBER SINGLES PACKET) 3.4 Gm Powd.pack, 17 GM PO BID for constipation, PKT 01/23/20 Bimatoprost (LUMIGAN) 2.5 Ml Drops, 1 DROP EACHEYE QHS for glaucoma, #7.5 ML 3 Refills 01/23/20 Linaclotide (LINZESS) 145 Mcg Capsule, 145 MCG PO DAILY07 for IRRITABLE BOWEL, CAP 01/23/20 Insulin Detemir (LEVEMIR) 100 Unit/1 Ml Vial, 25 UNIT SQ DAILYWBKFT for DM, VIAL 01/23/20 Insulin Detemir (LEVEMIR) 100 Unit/1 Ml Vial, 22 UNIT SQ QHS for DM, VIAL 01/23/20 Lactobacillus Acidophilus (PROBIOTIC) 1 Each Capsule, 1 CAP PO DAILY for priobiotic for 10 Days, #10 CAP 0 Refills 01/23/20 Dextrose (GLUCOSE GEL) 38 Gm Gel..gram., 38 GM PO PRN PRN for LOW BLOOD SUGAR, EACH 01/23/20 Gabapentin (GABAPENTIN ) 100 Mg Capsule, 100 MG PO TID for NEUROGENIC PAIN, CAP 01/23/20 Cyanocobalamin (Vitamin B-12) (B-12) 1,000 Mcg Tablet, 1 TAB PO DAILY for vit def for 30 Days, #30 TAB 0 Refills 01/23/20 Brimonidine Tartrate/Timolol (COMBIGAN EYE DROPS) 5 Ml Drops, 5 ML OP BID for gluacoma, DROP 01/23/20 Glycerin/Dimeth/Surfactants (CAVILON ONE-STEP SKIN CARE LOT) 236 Ml Lotion, 236 ML TP DAILY for buttock skin prphylaxis, MISC 01/23/20 Atorvastatin Calcium (ATORVASTATIN CALCIUM) 40 Mg Tablet, 1 TAB PO DAILY for hyperlipidemia, #30 TAB 5 Refills 01/23/20 Polyvinyl Alcohol (ARTIFICIAL TEARS) 15 Ml Drops, 1 DROP EACHEYE BID for dry eyes for 20 Days, #15 ML 0 Refills 01/23/20 Discontinued Reported Medications Insulin Aspart (NOVOLOG FLEXPEN) 100 Unit/1 Ml Insuln.pen, 0 SQ, SYR 12/25/17 Sucroferric Oxyhydroxide (VELPHORO) 500 Mg Tab.chew, 1500 MG PO TIDWMEALS, TAB.CHEW 12/25/17 Bimatoprost (LUMIGAN) 2.5 Ml Drops, 2.5 ML OP QHS for L;EFT EYE, DROP 12/25/17 [Aransep] No Conflict Check, for ON DIALYSIS DAYS 12/25/17 Niacin (NIASPAN) 500 Mg Tab.er.24h, 500 MG PO HS, TAB.SR 12/25/17 Levothyroxine Sodium (LEVOTHYROXINE SODIUM) 100 Mcg Tablet, 1 TAB PO DAILY, #30 TAB 5 Refills 12/25/17 Midodrine Hcl (MIDODRINE HCL) 10 Mg Tablet, 10 MG PO QMWF for PRIOR TO DIALYSIS, TAB 12/25/17 Sertraline Hcl (ZOLOFT) 100 Mg Tablet, 1 TAB PO DAILY, #30 TAB 5 Refills 12/25/17 Linaclotide (LINZESS) 145 Mcg Capsule, 145 MCG PO DAILY, CAP 12/25/17 Gabapentin (GABAPENTIN ) 100 Mg Capsule, 100 MG PO TID, CAP 12/25/17 Polyethylene Glycol 3350 (POLYETHYLENE GLYCOL 3350) 2,500 Gm Powder, 17 GM PO DAILY, #527 GM 11 Refills 03/24/14 Pantoprazole Sodium (PANTOPRAZOLE SODIUM ) 40 Mg Tablet.dr, 40 MG PO DAILY, TAB 03/24/14 Midodrine Hcl (MIDODRINE HCL) 2.5 Mg Tablet, 2.5 MG PO DAILY 03/24/14 Levothyroxine Sodium (LEVOTHYROXINE SODIUM) 150 Mcg Tablet, 1 TAB PO DAILY, #30 TAB 5 Refills 03/24/14 Fenofibrate (FENOFIBRATE) 160 Mg Tablet, 1 TAB PO DAILY, #30 TAB 5 Refills 03/24/14 Clopidogrel Bisulfate (CLOPIDOGREL) 75 Mg Tablet, 1 TAB PO DAILY, #90 TAB 1 Refill 03/24/14 Clonazepam (CLONAZEPAM ) 0.5 Mg Tablet, 0.5 MG PO BID, TAB 03/24/14 Multivits-Min/Fa/Lycopene/Lut (CENTRUM SILVER TABLET) 1 Each Tablet, 1 EACH PO DAILY 03/24/14 Carvedilol (CARVEDILOL ) 3.125 Mg Tablet, 1 TAB PO BID, #60 TAB 3 Refills 03/24/14 Brimonidine Tartrate (ALPHAGAN P) 5 Ml Drops, 1 DROP LEFTEYE BID, #15 ML 3 Refills 03/24/14 Albuterol Sulfate (PROAIR HFA INHALER) 8.5 Gm Hfa.aer.ad, 2 PUFF IH PRN Q4-6HRS, #1 INHALER 03/24/14 Ondansetron (ZOFRAN ODT) 4 Mg Tab.rapdis, 1 TAB SL PRN Q6HRS PRN for NAUSEA/VOMITING, #15 TAB 02/22/14 Zinc Sulfate (ZINC SULFATE) 220 Mg Tablet, 220 MG PO DAILY 02/22/14 Tramadol Hcl (TRAMADOL HCL) 50 Mg Tablet, 1 TAB PO Q4HRS PRN for PAIN, #30 TAB 02/22/14 Sevelamer Carbonate (RENVELA) 800 Mg Tablet, 3 TAB PO TID, #810 TAB 3 Refills 02/22/14 Rosuvastatin Calcium (CRESTOR) 40 Mg Tablet, 40 MG PO HS for FOR CHOLESTEROL, #30 TAB 0 Refills 02/22/14 Ropinirole Hcl (ROPINIROLE HCL) 0.5 Mg Tablet, 0.5 MG PO QHS, TAB 02/22/14 Ropinirole Hcl (REQUIP) 0.5 Mg Tablet, 0.25 MG PO DAILY, TAB 02/22/14 Psyllium Husk (PSYLLIUM FIBER) 0.52 Gm Capsule, 3.4 GM PO DAILY 02/22/14 Polyethylene Glycol 3350 (POLYETHYLENE GLYCOL 3350) 255 Gm Powder, 1 s PO BID, #527 GM 02/22/14 Lactobacillus Acidophilus (ACIDOPHILUS) 1 Each Capsule, 1 EACH PO TIDWMEALS 02/22/14 Acetaminophen (TYLENOL) 325 Mg Tablet, 1-2 TAB PO QID PRN for PAIN / TEMP, #60 TAB 2 Refills 02/22/14 DANIELLE MAYORGA MD Jan 28, 2020 10:59
[2020-01-28] MEDS: SENNOSIDES 8.6 MG TABLET PO SCH (12:09)
[2020-01-28] MEDS: FOLIC/VIT B COMP W-C (RENAL) TABLET. PO SCH (12:09)
[2020-01-28] MEDS: LEVOTHYROXINE 100 MCG TABLET PO SCH (12:10)
[2020-01-28] MEDS: CLOPIDOGREL BISULFATE 75 MG TABLET PO SCH (12:10)
[2020-01-28] MEDS: ATORVASTATIN CALCIUM 40 MG TABLET. PO SCH (12:10)
[2020-01-28] MEDS: rOPINIRole 0.25 MG TABLET. PO SCH (12:10)
[2020-01-28] MEDS: LACTOBACILLUS RHAMNOSUS GG 1 CAPSULE. PO SCH (12:10)
[2020-01-28] MEDS: ZINC SULFATE 220 MG CAPSULE. PO SCH (12:10)
[2020-01-28] MEDS: SERTRALINE 50 MG TABLET. PO SCH (12:10)
[2020-01-28] MEDS: LUBIPROSTONE 24 MCG CAPSULE PO SCH (12:10)
[2020-01-28] MEDS: POLYETHYLENE GLYCOL 3350 17 GM PACKET. PO SCH (12:11)
[2020-01-28] MEDS: PSYLLIUM HUSK (SUGAR FREE) 1 PKT PACKET PO SCH (12:11)
[2020-01-28] MEDS: TIMOLOL 0.5% OPHTH SOLUTION 5ML BOTTLE. OU SCH (12:13)
[2020-01-28] MEDS: POLYVINYL ALCOHOL 1.4% OPHTH SOLUTION 15ML BOTTLE. OU SCH (12:13)
[2020-01-28] MEDS: BRIMONIDINE 0.2% OPHTH SOLUTION 5ML BOTTLE. OU SCH (12:14)
[2020-01-28] MEDS: HEPARIN for SUB-Q USE 5,000 UNIT/ML VIAL. SQ SCH (12:25)
--- NOTE | 2020-01-28 12:56 | PDOC3 ---
Discharge Summary Visit Information Date of Admission: Jan 23, 2020 Date of Discharge: Jan 28, 2020 Admitting Diagnosis: Acute encephalopathy Final Diagnosis Problems Medical Problems: (1) Altered mental status Status: Acute Brief Hospital Course Allergies Allergies Coded Allergies Type Severity Reaction Last Updated Verified methylphenidate Allergy Intermediate 12/29/17 Yes acetaminophen Adverse Reaction Intermediate Nausea 12/29/17 Yes codeine Adverse Reaction Intermediate Nausea 12/29/17 Yes fentanyl Adverse Reaction Intermediate Nausea 12/29/17 Yes hydrocodone Adverse Reaction Intermediate Nausea 12/29/17 Yes morphine Adverse Reaction Intermediate Nausea 12/29/17 Yes oxycodone Adverse Reaction Intermediate Nausea 12/29/17 Yes Vital Signs Vital Signs Date Time Temp Pulse Resp B/P (MAP) Pulse Ox O2 Delivery O2 Flow Rate FiO2 01/28/20 07:07 61 138/58 (84) 01/28/20 03:56 97.8 16 97 97.8 01/27/20 22:40 Nasal Cannula 2.0 Lab Results Laboratory Tests Test 01/26/20 13:54 01/26/20 17:25 01/26/20 20:59 01/27/20 07:54 Glucose (Fingerstick) 127 mg/dL (70-99) 205 mg/dL (70-99) 372 mg/dL (70-99) 226 mg/dL (70-99) Test 01/27/20 12:04 01/27/20 16:58 01/27/20 20:48 01/28/20 04:00 Glucose (Fingerstick) 267 mg/dL (70-99) 169 mg/dL (70-99) 175 mg/dL (70-99) White Blood Count 7.6 x10^3/uL (4.0-11.0) Red Blood Count 3.29 x10^6/uL (3.50-5.40) Hemoglobin 11.4 g/dL (12.0-15.5) Hematocrit 34.6 % (36.0-47.0) Mean Corpuscular Volume 105 fL (79-100) Mean Corpuscular Hemoglobin 35 pg (25-35) Mean Corpuscular Hemoglobin Concent 33 g/dL (31-37) Red Cell Distribution Width 14.0 % (11.5-14.5) Platelet Count 156 x10^3/uL (140-400) Neutrophils (%) (Auto) 72 % (31-73) Lymphocytes (%) (Auto) 15 % (24-48) Monocytes (%) (Auto) 11 % (0-9) Eosinophils (%) (Auto) 1 % (0-3) Basophils (%) (Auto) 0 % (0-3) Neutrophils # (Auto) 5.5 x10^3/uL (1.8-7.7) Lymphocytes # (Auto) 1.1 x10^3/uL (1.0-4.8) Monocytes # (Auto) 0.9 x10^3/uL (0.0-1.1) Eosinophils # (Auto) 0.1 x10^3/uL (0.0-0.7) Basophils # (Auto) 0.0 x10^3/uL (0.0-0.2) Sodium Level 132 mmol/L (136-145) Potassium Level 4.0 mmol/L (3.5-5.1) Chloride Level 93 mmol/L (98-107) Carbon Dioxide Level 31 mmol/L (21-32) Anion Gap 8 (6-14) Blood Urea Nitrogen 53 mg/dL (7-20) Creatinine 5.3 mg/dL (0.6-1.0) Estimated GFR (Cockcroft-Gault) 8.1 BUN/Creatinine Ratio 10 (6-20) Glucose Level 120 mg/dL (70-99) Calcium Level 9.0 mg/dL (8.5-10.1) Total Bilirubin 0.4 mg/dL (0.2-1.0) Aspartate Amino Transf (AST/SGOT) 16 U/L (15-37) Alanine Aminotransferase (ALT/SGPT) 15 U/L (14-59) Alkaline Phosphatase 177 U/L (46-116) Total Protein 6.9 g/dL (6.4-8.2) Albumin 2.7 g/dL (3.4-5.0) Albumin/Globulin Ratio 0.6 (1.0-1.7) Test 01/28/20 08:30 01/28/20 12:11 Hepatitis B Surface Antigen Nonreactive (Nonreactive) Hepatitis B Surface Antibody Nonreactive Glucose (Fingerstick) 71 mg/dL (70-99) Laboratory Tests Test 01/27/20 16:58 01/27/20 20:48 01/28/20 04:00 01/28/20 08:30 Glucose (Fingerstick) 169 mg/dL (70-99) 175 mg/dL (70-99) White Blood Count 7.6 x10^3/uL (4.0-11.0) Red Blood Count 3.29 x10^6/uL (3.50-5.40) Hemoglobin 11.4 g/dL (12.0-15.5) Hematocrit 34.6 % (36.0-47.0) Mean Corpuscular Volume 105 fL (79-100) Mean Corpuscular Hemoglobin 35 pg (25-35) Mean Corpuscular Hemoglobin Concent 33 g/dL (31-37) Red Cell Distribution Width 14.0 % (11.5-14.5) Platelet Count 156 x10^3/uL (140-400) Neutrophils (%) (Auto) 72 % (31-73) Lymphocytes (%) (Auto) 15 % (24-48) Monocytes (%) (Auto) 11 % (0-9) Eosinophils (%) (Auto) 1 % (0-3) Basophils (%) (Auto) 0 % (0-3) Neutrophils # (Auto) 5.5 x10^3/uL (1.8-7.7) Lymphocytes # (Auto) 1.1 x10^3/uL (1.0-4.8) Monocytes # (Auto) 0.9 x10^3/uL (0.0-1.1) Eosinophils # (Auto) 0.1 x10^3/uL (0.0-0.7) Basophils # (Auto) 0.0 x10^3/uL (0.0-0.2) Sodium Level 132 mmol/L (136-145) Potassium Level 4.0 mmol/L (3.5-5.1) Chloride Level 93 mmol/L (98-107) Carbon Dioxide Level 31 mmol/L (21-32) Anion Gap 8 (6-14) Blood Urea Nitrogen 53 mg/dL (7-20) Creatinine 5.3 mg/dL (0.6-1.0) Estimated GFR (Cockcroft-Gault) 8.1 BUN/Creatinine Ratio 10 (6-20) Glucose Level 120 mg/dL (70-99) Calcium Level 9.0 mg/dL (8.5-10.1) Total Bilirubin 0.4 mg/dL (0.2-1.0) Aspartate Amino Transf (AST/SGOT) 16 U/L (15-37) Alanine Aminotransferase (ALT/SGPT) 15 U/L (14-59) Alkaline Phosphatase 177 U/L (46-116) Total Protein 6.9 g/dL (6.4-8.2) Albumin 2.7 g/dL (3.4-5.0) Albumin/Globulin Ratio 0.6 (1.0-1.7) Hepatitis B Surface Antigen Nonreactive (Nonreactive) Hepatitis B Surface Antibody Nonreactive Test 01/28/20 12:11 Glucose (Fingerstick) 71 mg/dL (70-99) Brief Hospital Course Ms Verma is a 64 yo F half-way SNF resident w/ PMHx CAD s/p CABG, HLD, CVA, DM2, hypothyroidism, ESRD on HD, s/p L BKA who presents with altered mental status. According to nursing facility patient is normally fully alert and oriented. They state that they found her unresponsive in bed. They called an ambulance and on the way here patient became more awake and alert. She then was able to tell us her name and location but was otherwise disoriented. She was moving all extremities. She was unable to provide us any history. Her only complaint was fatigue. She then became unresponsive again. On imaging found with fecal impaction. UA positive for blood leukocyte esterase protein. Labs otherwise consistent with ESRD, NA 131, WBC 5.5, Hb 11.1, platelets 152 MCV is 107 78: Afebrile. WBC 5.5. Urine culture pending. Going to dialysis today she has no complaints. Very pleasantly confused. 01/26: Stable, confused, but mentally improved. Still waiting for final urine culture as she is improved, she is transition to cefdinir per ID. Afebrile overnight. Mentally at her baseline knows she is at [place]. Discussed with ID to send out on 2 additional days of cefdinir after dialysis. Likely UTI caused encephalopathy, then cefepime continued it. 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 Severe protein calorie malnutrition PVD s/p L BKA Consults: Nephrology, ID Greater than 30 minutes spent on d/c Discharge Information Condition at Discharge: Improved Follow Up: Weeks (1) Disposition/Orders: D/C to Another Facility ([facility]) Scheduled Atorvastatin Calcium (Atorvastatin Calcium) 40 Mg Tablet, 1 TAB PO DAILY for hyperlipidemia, #30 Ref 5 (Reported) Entered as Reported by: CALI KUMARI on 01/23/201834 Last Taken: Unknown Dose on Unknown Date & Time Last Action: Continued on 01/23/201843 by CALI KUMARI Bimatoprost (Lumigan) 2.5 Ml Drops, 1 DROP EACHEYE QHS for glaucoma, #7.5 Ref 3 (Reported) Entered as Reported by: CALI KUMARI on 01/23/201834 Last Taken: Unknown Dose on Unknown Date & Time Last Action: Converted on 01/23/201843 by CALI KUMARI Brimonidine Tartrate/Timolol (Combigan Eye Drops) 5 Ml Drops, 5 ML OP BID for gluacoma, (Reported) Entered as Reported by: CALI KUMARI on 01/23/201834 Last Taken: Unknown Dose on Unknown Date & Time Last Action: Converted on 01/23/201843 by CALI KUMARI Cefdinir (Cefdinir) 300 Mg Capsule, 300 MG PO DAILY@1700 for UTI for 3 Days, #3 Prescribed by: DANIELLE MAYORGA MD on 01/27/20 1413 Clopidogrel Bisulfate (Clopidogrel) 75 Mg Tablet, 1 TAB PO DAILY for CAD, #90 Ref 1 (Reported) Entered as Reported by: CALI KUMARI on 01/23/201834 Last Action: Continued on 01/23/201843 by CALI KUMARI Cyanocobalamin (Vitamin B-12) (B-12) 1,000 Mcg Tablet, 1 TAB PO DAILY for vit def for 30 Days, #30 Ref 0 (Reported) Entered as Reported by: CALI KUMARI on 01/23/201834 Last Taken: Unknown Dose on Unknown Date & Time Last Action: New Order on 01/23/201834 by CALI KUMARI Famotidine (Pepcid) 20 Mg Tablet, 20 MG PO HS for BID, (Reported) Entered as Reported by: CALI KUMARI on 01/23/201834 Last Taken: Unknown Dose on Unknown Date & Time Last Action: Continued on 01/23/201843 by CALI KUMARI Folic Acid/Vitamin B Comp W-C (Maribell-Prem Tablet) 0.8 Mg Tablet, 1 TAB PO DAILY for Dialysis for 30 Days, #30 Ref 0 (Reported) Entered as Reported by: CALI KUMARI on 01/23/201834 Last Taken: Unknown Dose on Unknown Date & Time Last Action: Continued on 01/23/201843 by CALI KUMARI Gabapentin (Gabapentin ) 100 Mg Capsule, 100 MG PO TID for NEUROGENIC PAIN, (Reported) Entered as Reported by: CALI KUMARI on 01/23/201834 Last Taken: Unknown Dose on Unknown Date & Time Last Action: Continued on 01/23/201843 by CALI KUMARI Glycerin/Dimeth/Surfactants (Cavilon One-Step Skin Care Lot) 236 Ml Lotion, 236 ML TP DAILY for buttock skin prphylaxis, (Reported) Entered as Reported by: CALI UKMARI on 01/23/201834 Last Taken: Unknown Dose on Unknown Date & Time Last Action: Converted on 01/23/201843 by CALI KUMARI Insulin Aspart (Novolog) 100 Unit/1 Ml Cartridge, 10 UNIT SQ TIDAC for DM, ( Reported) Entered as Reported by: CALI KUMARI on 01/23/201834 Last Taken: Unknown Dose on Unknown Date & Time Last Action: Converted on 01/23/201843 by CALI KUMARI Insulin Aspart (Novolog) 100 Unit/1 Ml Cartridge, 0-16 UNIT SQ TIDAC for DM, (Reported) Entered as Reported by: CALI KUMARI on 01/23/201834 Last Taken: Unknown Dose on Unknown Date & Time Last Action: New Order on 01/23/201834 by CALI KUMARI Insulin Detemir (Levemir) 100 Unit/1 Ml Vial, 22 UNIT SQ QHS for DM, (Reported) Entered as Reported by: CALI KUMARI on 01/23/201834 Last Taken: Unknown Dose on Unknown Date & Time Last Action: Converted on 01/23/201843 by CALI KUMARI Insulin Detemir (Levemir) 100 Unit/1 Ml Vial, 25 UNIT SQ DAILYWBKFT for DM, (Reported) Entered as Reported by: CALI KUMARI on 01/23/201834 Last Taken: Unknown Dose on Unknown Date & Time Last Action: Converted on 01/23/201843 by CALI KUMARI Lactobacillus Acidophilus (Probiotic) 1 Each Capsule, 1 CAP PO DAILY for priobiotic for 10 Days, #10 Ref 0 (Reported) Entered as Reported by: CALI KUMARI on 01/23/201834 Last Taken: Unknown Dose on Unknown Date & Time Last Action: Converted on 01/23/201843 by CALI KUMARI Levothyroxine Sodium (Synthroid) 100 Mcg Tablet, 1 TAB PO DAILY for daily, #30 Ref 5 (Reported) Entered as Reported by: CALI KUMARI on 01/23/201834 Last Taken: Unknown Dose on Unknown Date & Time Last Action: Continued on 01/23/201843 by CALI KUMARI Linaclotide (Linzess) 145 Mcg Capsule, 145 MCG PO DAILY07 for IRRITABLE BOWEL, (Reported) Entered as Reported by: CALI KUMARI on 01/23/201834 Last Taken: Unknown Dose on Unknown Date & Time Last Action: Converted on 01/23/201843 by CALI KUMARI Metoclopramide Hcl (Reglan) 10 Mg Tablet, 1 TAB PO QID for QID for 30 Days, #120 Ref 0 (Reported) before food and bedtime Entered as Reported by: CALI KUMARI on 01/23/201834 Last Taken: Unknown Dose on Unknown Date & Time Last Action: Continued on 01/23/201843 by CALI KUMARI Midodrine Hcl (Midodrine Hcl) 10 Mg Tablet, 10 MG PO BID MWF for on dialysis days , (Reported) Entered as Reported by: CALI KUMARI on 01/23/201834 Last Taken: Unknown Dose on Unknown Date & Time Last Action: Converted on 01/23/201843 by CALI KUMARI Niacin (Niacor) 500 Mg Tablet, 1 TAB PO QHS for hyperlipidemia for 30 Days, #30 Ref 0 (Reported) Entered as Reported by: CALI KUMARI on 01/23/201834 Last Taken: Unknown Dose on Unknown Date & Time Last Action: Converted on 01/23/201843 by CALI KUMARI Ondansetron Hcl (Zofran) 4 Mg Tablet, 1 TAB PO Q6HRS for nausea, #20 (Reported) Entered as Reported by: CALI KUMARI on 01/23/201834 Last Taken: Unknown Dose on Unknown Date & Time Last Action: Converted on 01/23/201843 by CALI KUMARI Polyethylene Glycol 3350 (Miralax) 17 Gm Powd.pack, 1 PACKET PO Q3DAYS for constipation for 2 Days, #2 Ref 0 (Reported) dissolve in water Entered as Reported by: CALI KUMARI on 01/23/201834 Last Taken: Unknown Dose on Unknown Date & Time Last Action: Continued on 01/23/201843 by CALI KUMARI Polyvinyl Alcohol (Artificial Tears) 15 Ml Drops, 1 DROP EACHEYE BID for dry eyes for 20 Days, #15 Ref 0 (Reported) Entered as Reported by: CALI KUMARI on 01/23/201834 Last Taken: Unknown Dose on Unknown Date & Time Last Action: Continued on 01/23/201843 by CALI KUMARI Psyllium Husk/Aspartame (Metamucil Fiber Singles Packet) 3.4 Gm Powd.pack, 17 GM PO BID for constipation, (Reported) Entered as Reported by: CALI KUMARI on 01/23/201834 Last Taken: Unknown Dose on Unknown Date & Time Last Action: Continued on 01/23/201843 by CALI KUMARI Ropinirole Hcl (Ropinirole Hcl) 0.25 Mg Tablet, 0.25 MG PO DAILY for a, (Reported) Entered as Reported by: CALI KUMARI on 01/23/201834 Last Taken: Unknown Dose on Unknown Date & Time Last Action: Continued on 01/23/201843 by CALI KUMARI Ropinirole Hcl (Ropinirole Hcl) 1 Mg Tablet, 1 MG PO DAILY for QHS, (Reported) Entered as Reported by: CALI KUMARI on 01/23/201834 Last Taken: Unknown Dose on Unknown Date & Time Last Action: Continued on 01/23/201843 by CALI KUMARI Sennosides (Senna) 8.6 Mg Tablet, 8.6 MG PO DAILY for constipation, (Reported) Entered as Reported by: CALI KUMARI on 01/23/201834 Last Taken: Unknown Dose on Unknown Date & Time Last Action: Continued on 01/23/201843 by CALI KUMARI Sertraline Hcl (Zoloft) 100 Mg Tablet, 1 TAB PO DAILY for depression, #30 Ref 5 (Reported) Entered as Reported by: CALI KUMARI on 01/23/201850 Last Taken: Unknown Dose on Unknown Date & Time Last Action: Converted on 01/23/201853 by CALI KUMARI Sevelamer Carbonate (Renvela) 2.4 Gm Powd.pack, 2.4 GM PO TIDWMEALS for dailysis , (Reported) Entered as Reported by: CALI KUMARI on 01/23/201834 Last Taken: Unknown Dose on Unknown Date & Time Last Action: Continued on 01/23/201843 by CALI KUMARI Zinc (Zinc) 50 Mg Tablet, 1 TAB PO DAILY for ulcers for 30 Days, #30 Ref 0 (Reported) Entered as Reported by: CALI KUMARI on 01/23/201834 Last Taken: Unknown Dose on Unknown Date & Time Last Action: Converted on 01/23/201843 by CALI KUMARI Scheduled PRN Dextrose (Glucose Gel) 38 Gm Gel..gram., 38 GM PO PRN PRN for LOW BLOOD SUGAR, (Reported) Entered as Reported by: CALI KUMARI on 01/23/201834 Last Taken: Unknown Dose on Unknown Date & Time Last Action: New Order on 01/23/201834 by CALI KUMARI Midodrine Hcl (Midodrine Hcl) 10 Mg Tablet, 10 MG PO PRN Q8HRS PRN for Low blood pressure, (Reported) Entered as Reported by: CALI KUMARI on 01/23/201834 Last Taken: Unknown Dose on Unknown Date & Time Last Action: Converted on 01/23/201843 by CALI KUMARI Tramadol Hcl (Tramadol Hcl) 50 Mg Tablet, 50 MG PO PRN DAILY PRN for PAIN for 6 Days, #6 Ref 0 Prescribed by: DANIELLE MAYORGA MD on 01/27/20 1413 Discontinued Medications Acetaminophen (Tylenol) 325 Mg Tablet, 1-2 TAB PO QID PRN for PAIN / TEMP, #60 Ref 2 (Reported) Entered as Reported by: KEVON JACOBS on 02/22/14 1157 Last Action: Discontinued on 01/23/201808 by CALI KUMARI Albuterol Sulfate (Proair Hfa Inhaler) 8.5 Gm Hfa.aer.ad, 2 PUFF IH PRN Q4-6HRS, #1 (Reported) Entered as Reported by: KAELA CARDENAS on 03/24/14 180 Last Action: Discontinued on 01/23/201808 by CALI KUMARI Bimatoprost (Lumigan) 2.5 Ml Drops, 2.5 ML OP QHS for L;EFT EYE, (Reported) Entered as Reported by: JOSE VANG on 12/25/172218 Last Action: Discontinued on 01/23/201809 by CALI KUMARI Brimonidine Tartrate (Alphagan P) 5 Ml Drops, 1 DROP LEFTEYE BID, #15 Ref 3 (Reported) Entered as Reported by: KAELA CARDENAS on 03/24/141801 Last Action: Discontinued on 01/23/201808 by CALI KUMARI Carvedilol (Carvedilol ) 3.125 Mg Tablet, 1 TAB PO BID, #60 Ref 3 (Reported) Entered as Reported by: KAELA CARDENAS on 03/24/141801 Last Action: Discontinued on 01/23/201808 by CALI KUMARI Clonazepam (Clonazepam ) 0.5 Mg Tablet, 0.5 MG PO BID, (Reported) Entered as Reported by: KAELA CARDENAS on 03/24/141801 Last Action: Discontinued on 01/23/201809 by CALI KUMARI Clopidogrel Bisulfate (Clopidogrel) 75 Mg Tablet, 1 TAB PO DAILY, #90 Ref 1 (Reported) Entered as Reported by: KAELA CARDENAS on 03/24/141801 Last Action: Discontinued on 01/23/201809 by CALI KUMARI Fenofibrate (Fenofibrate) 160 Mg Tablet, 1 TAB PO DAILY, #30 Ref 5 (Reported) Entered as Reported by: KAELA CARDENAS on 03/24/141801 Last Action: Discontinued on 01/23/201809 by CALI KUMARI Gabapentin (Gabapentin ) 100 Mg Capsule, 100 MG PO TID, (Reported) Entered as Reported by: JOSE VANG on 12/25/172217 Last Action: Discontinued on 01/23/201809 by CALI KUMARI Insulin Aspart (Novolog Flexpen) 100 Unit/1 Ml Insuln.pen, 0 SQ, (Reported) Entered as Reported by: JOSE VANG on 12/25/172218 Last Action: Discontinued on 01/23/201809 by CALI KUMARI Lactobacillus Acidophilus (Acidophilus) 1 Each Capsule, 1 EACH PO TIDWMEALS, (Reported) Entered as Reported by: KEVON JACOBS on 02/22/14 1219 Last Action: Discontinued on 01/23/201808 by CALI KUMARI Levothyroxine Sodium (Levothyroxine Sodium) 150 Mcg Tablet, 1 TAB PO DAILY, #30 Ref 5 (Reported) Entered as Reported by: KAELA CARDENAS on 03/24/141801 Last Action: Discontinued on 01/23/201809 by CALI KUMARI Levothyroxine Sodium (Levothyroxine Sodium) 100 Mcg Tablet, 1 TAB PO DAILY, #30 Ref 5 (Reported) Entered as Reported by: JOSE VANG on 12/25/172218 Last Action: Discontinued on 01/23/201809 by CALI KUMARI Linaclotide (Linzess) 145 Mcg Capsule, 145 MCG PO DAILY, (Reported) Entered as Reported by: JOSE VANG on 12/25/172218 Last Action: Discontinued on 01/23/201809 by CALI KUMARI Midodrine Hcl (Midodrine Hcl) 2.5 Mg Tablet, 2.5 MG PO DAILY, (Reported) Entered as Reported by: KAELA CARDENAS on 03/24/141809 Last Action: Discontinued on 01/23/201809 by CALI KUMARI Midodrine Hcl (Midodrine Hcl) 10 Mg Tablet, 10 MG PO QMWF for PRIOR TO DIALYSIS, (Reported) Entered as Reported by: JOSE VANG on 12/25/172218 Last Action: Discontinued on 01/23/201809 by CALI KUMARI Multivits-Min/Fa/Lycopene/Lut (Centrum Silver Tablet) 1 Each Tablet, 1 EACH PO DAILY, (Reported) Entered as Reported by: KAELA CARDENAS on 03/24/141801 Last Action: Discontinued on 01/23/201808 by CALI KUMARI Niacin (Niaspan) 500 Mg Tab.er.24h, 500 MG PO HS, (Reported) Entered as Reported by: JOSE VANG on 12/25/172218 Last Action: Discontinued on 01/23/201809 by CALI KUMARI Ondansetron (Zofran Odt) 4 Mg Tab.rapdis, 1 TAB SL PRN Q6HRS PRN for NAUSEA /VOMITING, #15 (Reported) Entered as Reported by: Vicky Canales on 02/22/142112 Last Action: Discontinued on 01/23/201808 by CALI KUMARI Pantoprazole Sodium (Pantoprazole Sodium ) 40 Mg Tablet.dr, 40 MG PO DAILY, (Reported) Entered as Reported by: KAELA CARDENAS on 03/24/141809 Last Action: Discontinued on 01/23/201809 by CALI KUMARI Polyethylene Glycol 3350 (Polyethylene Glycol 3350) 255 Gm Powder, 1 s PO BID, #527 (Reported) Entered as Reported by: KEVON JACOBS on 02/22/141218 Last Action: Discontinued on 01/23/201808 by CALI KUMARI Polyethylene Glycol 3350 (Polyethylene Glycol 3350) 2,500 Gm Powder, 17 GM PO DAILY, #527 Ref 11 (Reported) Entered as Reported by: KAELA CARDENAS on 03/24/141809 Last Action: Discontinued on 01/23/201809 by CALI KUMARI Psyllium Husk (Psyllium Fiber) 0.52 Gm Capsule, 3.4 GM PO DAILY, (Reported) Entered as Reported by: KEVON JACOBS on 02/22/141218 Last Action: Discontinued on 01/23/201808 by CALI KUMARI Ropinirole Hcl (Requip) 0.5 Mg Tablet, 0.25 MG PO DAILY, (Reported) Entered as Reported by: KEVON JACOBS on 02/22/141218 Last Action: Discontinued on 01/23/201808 by CALI KUMARI Ropinirole Hcl (Ropinirole Hcl) 0.5 Mg Tablet, 0.5 MG PO QHS, (Reported) Entered as Reported by: KEVON JACOBS on 02/22/141218 Last Action: Discontinued on 01/23/201808 by CALI KUMARI Rosuvastatin Calcium (Crestor) 40 Mg Tablet, 40 MG PO HS for FOR CHOLESTEROL, #30 Ref 0 (Reported) Entered as Reported by: KEVON JACOBS on 02/22/141218 Last Action: Discontinued on 01/23/201808 by CALI KUMARI Sertraline Hcl (Zoloft) 100 Mg Tablet, 1 TAB PO DAILY, #30 Ref 5 (Reported) Entered as Reported by: JOSE VANG on 12/25/172218 Last Action: Discontinued on 01/23/201809 by CALI KUMARI Sevelamer Carbonate (Renvela) 800 Mg Tablet, 3 TAB PO TID, #810 Ref 3 (Reported) Entered as Reported by: KEVON JACOBS on 02/22/141218 Last Action: Discontinued on 01/23/201808 by CALI KUMARI Sucroferric Oxyhydroxide (Velphoro) 500 Mg Tab.chew, 1,500 MG PO TIDWMEALS, (Reported) Entered as Reported by: JOSE VANG on 12/25/172218 Last Action: Discontinued on 01/23/201809 by CALI KUMARI Tramadol Hcl (Tramadol Hcl) 50 Mg Tablet, 1 TAB PO Q4HRS PRN for PAIN, #30 (Reported) Entered as Reported by: KEVON JACOBS on 02/22/141218 Last Action: Discontinued on 01/23/201808 by CALI KUMARI Zinc Sulfate (Zinc Sulfate) 220 Mg Tablet, 220 MG PO DAILY, (Reported) Entered as Reported by: KEVON JACOBS on 02/22/141218 Last Action: Discontinued on 01/23/201808 by CALI KUMARI [Cecynsroque] , for ON DIALYSIS DAYS, (Reported) Entered as Reported by: JOSE VANG on 12/25/172218 Last Action: Discontinued on 01/23/201809 by CALI KUMARI Justicifation of Admission Dx: Justifications for Admission: Justification of Admission Dx: Yes DANIELLE MAYORGA MD Jan 28, 2020 12:56
[2020-01-28] MEDS ORDERED: VANCOMYCIN 500 MG in IV NORMAL SALINE 100ML 100 ML IV SCH (16:00)
== END 2020-01-28 15:35 | DRG 871 ==
LOC: ER 11:30 → 6 SOUTH 15:46 → 2 NORTH 01-25 19:45
PROVIDERS: ADMIT Internal Medicine; ATTEND Internal Medicine
PROC: 5A1D70Z Performance of Urinary Filtration, Intermittent, Less than 6 Hours Per Day (ICD-10-PCS; principal; 2020-01-24)
PROC: 5A1D70Z Performance of Urinary Filtration, Intermittent, Less than 6 Hours Per Day (ICD-10-PCS; 2020-01-26)
DX: A41.9 Sepsis, unspecified organism (principal); G93.41 Metabolic encephalopathy; N18.6 End stage renal disease; E43 Unspecified severe protein-calorie malnutrition; Z68.41 Body mass index [BMI] 40.0-44.9, adult; I13.2 Hypertensive heart and chronic kidney disease with heart failure and with stage 5 chronic kidney disease, or end stage renal disease; I42.9 Cardiomyopathy, unspecified; J98.11 Atelectasis; N39.0 Urinary tract infection, site not specified; E03.9 Hypothyroidism, unspecified; E11.22 Type 2 diabetes mellitus with diabetic chronic kidney disease; E78.00 Pure hypercholesterolemia, unspecified; E78.5 Hyperlipidemia, unspecified; G25.81 Restless legs syndrome; I25.10 Atherosclerotic heart disease of native coronary artery without angina pectoris; I50.9 Heart failure, unspecified; K56.41 Fecal impaction; Z20.828 Contact with and (suspected) exposure to other viral communicable diseases; E66.01 Morbid (severe) obesity due to excess calories; G47.33 Obstructive sleep apnea (adult) (pediatric); H40.9 Unspecified glaucoma; K21.9 Gastro-esophageal reflux disease without esophagitis; K57.90 Diverticulosis of intestine, part unspecified, without perforation or abscess without bleeding; Z82.49 Family history of ischemic heart disease and other diseases of the circulatory system; Z86.73 Personal history of transient ischemic attack (TIA), and cerebral infarction without residual deficits; Z89.511 Acquired absence of right leg below knee; Z89.612 Acquired absence of left leg above knee; Z95.1 Presence of aortocoronary bypass graft; Z99.2 Dependence on renal dialysis; Z88.5 Allergy status to narcotic agent; Z88.8 Allergy status to other drugs, medicaments and biological substances
CPT/HCPCS: 36415; 70450; 71045; 71250; 74176; 80048; 80053; 80202; 81001; 82550; 82962; 83036; 83615; 83735; 84100; 84443; 84484; 85025; 85379; 85610; 86140; 86706; 87040; 87340; 93005; 96374; 96375; J0692; J1644; J1720; J1815; J2060; J2405; J3370; J7040; P9612; 99285-25; G0378; U0003-CS

== ENCOUNTER 2021-06-05 09:27 | Inpatient (IN) | payer MEDICARE, OTHER ==
[2021-06-05] VITALS (7 sets, daily range): BP systolic 95–141; BP diastolic 56–65
[~2021-06-05] VITALS: Ht 175.3 cm; Wt 123.5 kg
[~2021-06-05 09:27] MED LIST changes: +ATOR40TA59 PO; +BIMA2.5D OS; +BRIM5DRO2 OS; +CARB-171 AU; +CEFD300C PO; +CYAN100072 PO; +FOLI0.8T21 PO; +LACT1CAP6 PO; +LEVO-101 PO; +METO10TA81 PO; +NIAC-9 PO; +POLY15DR27 EACHEYE; +POLY17PO29 PO; +PSYL3.4P PO; +ROPI0.254 PO; +ROPI1TAB4 PO; +SENN-182 PO; +SEVE2.4P PO; +ZINC50TA39 PO; +[UNRECOGNIZED DRUG - CODE] TP
--- NOTE | 2021-06-05 09:40 | PHYS DOC ---
Past Medical History Past Medical History: Anemia, Anxiety, CHF, Constipation, CVA, Depression, Diabetes-Type II, GERD, High Cholesterol, Hypertension, Renal Disease, Renal Failure, Other Additional Past Medical Histor: sleep apnea, glaucoma, cardiomyopathy, PVD, hyperparathyroidism Past Surgical History: Coronary Bypass Surgery, Other Additional Past Surgical Histo: left AKA, AV graft placement, Smoking Status: Never Smoker Alcohol Use: None Drug Use: None General Adult HPI: HPI: Patient is a 66 year old female who is brought in by EMS from her half-way facility for reported altered mental status. The patient's reports that he has noticed that she has been "slow" and has seemed confused for at least 1 or 2 months. The patient reports no specific complaints. She does seem confused. She is not sure why she is here. She denies any fall or injury. The nursing staff reportedly conveyed to EMS and our nursing staff that they thought she had some facial droop. The patient has not noted to have any facial droop at present. The patient reports that she is had a cough, unknown how long unknown if she is producing sputum. She denies chest pain. She denies shortn ess of breath. She denies abdominal pain. She denies nausea or vomiting. She has end-stage renal disease and undergoes hemodialysis. She normally dialyzes on Friday, Friday, Friday. She has not missed any dialysis. The patient is noted to have frequent PVCs and episodes of nonsustained ventricular tachycardia. This is something she has had in the past. No indication that she is on antiarrhythmics at this time. She denies any subjective palpitations, diaphoresis or dizziness symptoms. Her thinks that perhaps gabapentin that she takes 3 times a day is to blame for her confusion. At present, the patient's reports that she seems more generally weak and slightly more confused today than she was 2 days ago when he last saw her at her facility. Review of Systems: Review of Systems: Constitutional: Denies fever or chills. [] Eyes: Denies vision loss. HENT: Denies nasal congestion or sore throat. [] Respiratory: Ports cough. Denies dyspnea. Cardiovascular: Denies chest pain. GI: Denies abdominal pain, nausea, vomiting : Denies any acute urinary symptoms, though the patient is unable to articulate if she makes urine. Musculoskeletal: Denies back pain or joint pain. [] Integument: No acute reported skin changes. Neurologic: Patient denies headache. No focal weakness reported. Generalized weakness and malaise and altered mental status/confusion reported. Psychiatric: No reported acute mood changes Heart Score: C/O Chest Pain: No Risk Factors: Risk Factors: DM, Current or recent (<one month) smoker, HTN, HLP, family history of CAD, obesity. Risk Scores: Score 0 - 3: 2.5% MACE over next 6 weeks - Discharge Home Score 4 - 6: 20.3% MACE over next 6 weeks - Admit for Clinical Observation Score 7 - 10: 72.7% MACE over next 6 weeks - Early Invasive Strategies Allergies: Allergies: Allergies Coded Allergies Type Severity Reaction Last Updated Verified methylphenidate Allergy Intermediate 12/29/17 Yes acetaminophen Adverse Reaction Intermediate Nausea 12/29/17 Yes codeine Adverse Reaction Intermediate Nausea 12/29/17 Yes fentanyl Adverse Reaction Intermediate Nausea 12/29/17 Yes hydrocodone Adverse Reaction Intermediate Nausea 12/29/17 Yes morphine Adverse Reaction Intermediate Nausea 12/29/17 Yes oxycodone Adverse Reaction Intermediate Nausea 12/29/17 Yes Physical Exam: PE: Constitutional: Well developed, well nourished, she is chronically ill- appearing. She is somewhat disheveled and unkempt in appearance. She appears much older than stated age. HENT: Normocephalic, atraumatic, mucous membranes slightly tacky. Oropharynx is patent and clear. Eyes: Right pupil is round and reactive to light. Significant opacity to the left eye. No deformity of the periorbital areas. Sclera are anicteric. Conjunctive are pale. Neck: Normal range of motion, no tenderness, supple, no stridor. [] Cardiovascular: Irregular, frequent PVCs, +2 radial and +2 posterior tibial pulses bilaterally. Lungs & Thorax: Diminished breath sounds bilateral bases, upper coley are clear to auscultation. No wheezes. Mild tachypnea. No retractions. Speaks in full and clear sentences. Abdomen: Abdomen is obese, soft, nondistended, nontender. Skin: Warm, dry, no jaundice. Diffuse pallor. Extremities: No calf tenderness. Bilateral lower extremity 1+ pitting edema. Venous stasis and stasis dermatitis changes are noted. No warmth erythema. Neurologic: She is awake, mildly sleepy, but awakens easily to voice, follows all commands. No facial asymmetry is noted. Speech is fluent and clear. She is oriented to person and place. She is not oriented to time, date, situation. Moves all 4 extremities equally. Sensation is grossly intact. Psychologic: She is pleasant, smiles, follows commands, she is cooperative. [] EKG: EKG: EKG is interpreted at 0937 Rhythm is irregular, frequent PVCs, wider complexes Rate is 84 bpm LBBB Parrott is left No STEMI Radiology/Procedures: Radiology/Procedures: IMAGING REPORT Signed PATIENT: LAINE KING AACCOUNT: [id number] : 1955 LOCATION: ER AGE: 66 SEX: F EXAM STATUS: PRE ER ORD. PHYSICIAN: ANIKET REID DO REASON: AMS PROCEDURE: CT HEAD WO CONTRAST CT HEAD INDICATION: Altered mental status COMPARISON: 10/02/2020 Exposure: One or more of the following individualized dose reduction techniques were utilized for this examination: 1. Automated exposure control 2. Adjustment of the mA and/or kV according to patient size 3. Use of iterative reconstruction technique TECHNIQUE: 5 mm contiguous axial images were obtained from the skull base to the vertex in both bone and soft tissue algorithm. FINDINGS: Mild bilateral periventricular white matter hypodensities likely chronic small vessel ischemic disease. Moderate-sized hypodensity identified in the left parieto-occipital lobe similar to prior exam likely old infarct. No evidence of acute intracranial hemorrhage. No extra-axial fluid collections. No mass effect or midline shift. Ventricular size is appropriate. Basal cisterns are patent. No fractures identified.Grier-white differentiation is preserved.Globes and orbits are within normal limits. Paranasal sinuses and mastoid air cells are clear. IMPRESSION: 1. No acute intracranial findings. 2. Moderate-sized hypodensity identified in the left parieto-occipital lobe similar to prior exam likely old infarct. Electronically signed by: Anton Negron MD (06/05/2021 10:40 AM) [id number] DICTATED and SIGNED BY: ANTON NEGRON MD DATE: 06/05/21 [id number] IMAGING REPORT Signed PATIENT: LAINE KINGCOUNT: [id number] : 1955 LOCATION: ER AGE: 66 SEX: F EXAM STATUS: PRE ER ORD. PHYSICIAN: ANIKET REID DO REASON: AMS PROCEDURE: PORTABLE CHEST 1V Single view of the chest. 06/05/2021 10:04 AM Indication: Altered mental status Comparison: Chest radiograph October 02, 2020 Findings: No pneumothorax is seen. Patchy infiltrates are seen throughout the lungs. The heart is enlarged. Probable fusion of the right minor fissure noted. Prior median sternotomy noted. The external pacemaking leads obscure portions of the left chest. There is a left subclavian and axial vascular stent. IMPRESSION: 1. Patchy bilateral infiltrates. 2. Probable small pleural effusion tracking in the minor fissure on the right 3. Cardiomegaly Electronically signed by: Roldan Mosley MD (06/05/2021 10:28 AM) [id number] DICTATED and SIGNED BY: ROLDAN MOSLEY MD DATE: 06/05/21 [id number] Course & Med Decision Making: Course & Med Decision Making Pertinent Labs and Imaging studies reviewed. (See chart for details) The patient demonstrated frequent PVCs and evidence of some wider complexes on EKG, so I ordered IV calcium and IV sodium bicarbonate. She had several episodes of nonsustained ventricular tachycardia. I ordered IV amiodarone bolus and drip. Type and screen is ordered, secondary to his significantly low hemoglobin. I did review her previous hemoglobin trends, and several years ago she had a similarly low hemoglobin, but the last hemoglobin was over 10 in September of this year. Packed red blood cells are ordered. I IV Zosyn and IV vancomycin for empiric treatment of healthcare associated pneumonia. I discussed all the findings, differential diagnosis and plan of care with the patient and her . I have recommended admission to the hospital. The patient is accepted by Dr. Monroe. Munira Disclaimer: Munira Disclaimer: This electronic medical record was generated, in whole or in part, using a voice recognition dictation system. Departure Departure Impression: Primary Impression: Altered mental status Additional Impressions: Non-sustained ventricular tachycardia Anemia ESRD on hemodialysis HCAP (healthcare-associated pneumonia) Disposition: 09 ADMITTED INPATIENT Admitting Physician: Fer. Sylvie Condition: GUARDED Referrals: SYLVIE MONROE MD (PCP) ANIKET REID DO Jun 05, 2021 09:40
[2021-06-05] MEDS ORDERED: SODIUM BICARB ADULT 8.4% 50 MEQ/50 ML DISP.SYRIN. IV ONE (09:45)
[2021-06-05] MEDS ORDERED: CALCIUM GLUCONATE 1,000 MG/10 ML VIAL. IVP ONE (09:45)
[2021-06-05 10:12] LABS: BASO % 0 % (0-3); EOS % 1 % (0-3); LYMPH # 0.8 x10^3/uL (1.0-4.8); LYMPH % 11 % (24-48); MEAN CORPUSCULAR HEMOGLOBIN 35 pg (25-35); MEAN CORPUSCULAR HGB CONC 32 g/dL (31-37); MEAN CORPUSCULAR VOLUME 109 fL (79-100); MONO # 0.4 x10^3/uL (0.0-1.1); MONO % 6 % (0-9); NEUT % 82 % (31-73); PLATELET COUNT 215 x10^3/uL (140-400); RED BLOOD COUNT 1.75 x10^6/uL (3.50-5.40); WHITE BLOOD COUNT 7.3 x10^3/uL (4.0-11.0)
[2021-06-05 10:14] LABS: HEMOGLOBIN 6.1 g/dL (12.0-15.5)
[2021-06-05 10:15] LABS: HEMATOCRIT 19.1 % (36.0-47.0)
[2021-06-05 10:23] LABS: PROTHROMBIN TIME PATIENT 14.6 SEC (11.7-14.0)
--- NOTE | 2021-06-05 10:30 | RAD ---
Single view of the chest. 06/05/2021 10:04 AM Indication: Altered mental status Comparison: Chest radiograph October 02, 2020 Findings: No pneumothorax is seen. Patchy infiltrates are seen throughout the lungs. The heart is enl arged. Probable fusion of the right minor fissure noted. Prior median sternotomy noted. The external pacemaking leads obscure portions of the left chest. There is a left subclavian and axia l vascular stent. IMPRESSION: 1. Patchy bilateral infiltrates. 2. Probable small pleural effusion tracking in the minor fissure on the right 3. Cardiomegaly Electronically signed by: Roldan Jang MD (06/05/2021 10:28 AM) [id number]
--- NOTE | 2021-06-05 10:34 | EKG ---
[facility] [address] [place] [address] Test Date: 2021-06-05 Test Time: 09:36:04 Pat Name: LAINE KING Department: Room: Gender: F Software Implementation Project Manager: : 1955 Requested By: ANIKET REID Order Number: [id number] Reading MD: Alistair Nelson Measurements Intervals Osgood Rate: 84 P: LA: QRS: -46 QRSD: 138 T: 72 QT: 432 QTc: 514 Interpretive Statements SINUS RHYTHM FIRST DEGREE AV BLOCK VENTRICULAR BIGEMINY Electronically Signed On 06-05-2021 14:02:52 DRYING ROOM ATTENDANT by Alistair Nelson
[2021-06-05 10:36] LABS: CALCIUM 8.2 mg/dL (8.5-10.1); CREATININE 4.3 mg/dL (0.6-1.0); GFR 10.3; POTASSIUM 3.8 mmol/L (3.5-5.1)
[2021-06-05 10:42] LABS: ALBUMIN 2.6 g/dL (3.4-5.0); ALBUMIN/GLOBULIN RATIO 0.7 (1.0-1.7); MAGNESIUM 1.9 mg/dL (1.8-2.4); TOTAL BILIRUBIN 0.3 mg/dL (0.2-1.0); TOTAL PROTEIN 6.2 g/dL (6.4-8.2)
--- NOTE | 2021-06-05 10:43 | RAD ---
CT HEAD INDICATION: Altered mental status COMPARISON: 10/02/2020 Exposure: One or more of the following individualized dose reduction techniques were utilized for thi s examination: 1. Automated exposure control 2. Adjustment of the mA and/or kV according to patient size 3. Use of iterative reconstruction technique TECHNIQUE: 5 mm contiguous axial images were obtained from the skull base to the vertex in both bone and soft tissue algorithm. FINDINGS: Mild bilateral periventricular white matter hypodensities likely chronic small vessel ischemic diseas e. Moderate-sized hypodensity identified in the left parieto-occipital lobe similar to prior exam lik lisa old infarct. No evidence of acute intracranial hemorrhage. No extra-axial fluid collections. No mass effect or midline shift. Ventricular size is appropriate. Basal cisterns are patent. No fractures identified.Grier-white differentiation is preserved.Globes and orbits are within normal l imits. Paranasal sinuses and mastoid air cells are clear. IMPRESSION: 1. No acute intracranial findings. 2. Moderate-sized hypodensity identified in the left parieto-occipital lobe similar to prior exam li hillary old infarct. Electronically signed by: nAton Negron MD (06/05/2021 10:40 AM) [id number]
[2021-06-05] MEDS ORDERED: AMIODARONE 150 MG in IV DEXTROSE 5% 100ML 100 ML IV ONE (11:00)
[2021-06-05] MEDS ORDERED: VANCOMYCIN 1GM IVPB FOR OMNI 250 ML IV ONE (11:30)
[2021-06-05] MEDS ORDERED: PIPERACILLIN/TAZOBACTAM 4.5 GM in IV NORMAL SALINE 100ML 100 ML IV ONE (11:30)
[2021-06-05] MEDS ORDERED: PIPERACILLIN/TAZOBACTAM 2.25 GM in IV NORMAL SALINE 50ML 50 ML IV ONE (11:30)
[2021-06-05] MEDS ORDERED: VANCOMYCIN 1.75 GM in IV NORMAL SALINE 500ML BAG 500 ML IV ONE (11:30)
[2021-06-05] MEDS: AMIODARONE 450 MG in IV DEXTROSE 5% 250 ML IV PRN ×2 (12:11→19:30)
--- NOTE | 2021-06-05 15:03 | PDOC2 ---
CALI HARDWICK PRODUCT SUPPORT REPRESENTATIVE 06/05/21 1503: CARDIAC CONSULT DATE OF CONSULT Date of Consult DATE: 06/05/21 TIME: 14:47 REASON FOR CONSULT Reason for Consult: NSVT REFERRING PHYSICIAN Referring Physician: Dr. Cardoso SOURCE Source: Chart review, Patient HISTORY OF PRESENT ILLNESS HISTORY OF PRESENT ILLNESS This is a 66 yo female who presented from nursing facility secondary to altered mental status. Also with possible facial droop. Per report, feels patient has seemed more delayed for the last couple of months, but is more weak and confused today. In ED, patient noted with frequent PVC's and episodes of NSVT, which prompted this consult. IV amiodarone has been initiated. Patient alert to person and place. Is unable to tell me what brought her to the ED. Thinks possibly dizziness. She presently denies any chest pain, palpitations, dizziness, diaphoresis, or shortness of breath. PAST MEDICAL HISTORY Past Medical History left eye blindness Cardiovascular: CAD, CHF, HTN, Hyperlipidemia, Other (PAD ) Pulmonary: COPD, Other (DENISA) CENTRAL NERVOUS SYSTEM: CVA, Periperal neuropathy GI: Diverticulosis, GERD Heme/Onc: Anemia NOS Psych: Anxiety, Depression Musculoskeletal: Osteoarthritis Rheumatologic: Gout Renal/: Chronic renal failure (ESRD on HD) Endocrine: Diabetes PAST SURGICAL HISTORY Past Surgical History: Appendectomy, Cholecystectomy, Other (Left AKA, fistula ) FAMILY HISTORY Family History: Diabetes, Hypertension SOCIAL HISTORY ALCOHOL: none Drugs: None Lives: Intermediate CURRENT MEDICATIONS CURRENT MEDICATIONS Current Medications Medications (Trade) Dose Ordered Sig/Diana Route PRN Reason Start Time Stop Time Status Last Admin Dose Admin Sodium Bicarbonate (Sodium Bicarb Adult 8.4% Syr) 50 meq 1X ONCE IV 06/05/21 09:45 06/05/21 09:46 DC 06/05/21 10:00 Calcium Gluconate (Calcium Gluconate) 1,000 mg 1X ONCE IVP 06/05/21 09:45 06/05/21 09:46 DC 06/05/21 09:45 Amiodarone HCl 150 mg/Dextrose 103 ml @ 618 mls/hr 1X ONCE IV 06/05/21 11:00 06/05/21 11:09 DC 06/05/21 11:17 Amiodarone HCl 450 mg/Dextrose 259 ml @ 34.533 mls/ hr CONT PRN IV SEE I/O RECORD 06/05/21 11:30 06/06/21 11:16 06/05/21 12:11 Piperacillin Sod/ Tazobactam Sod 2.25 gm/Sodium Chloride 50 ml @ 100 mls/hr 1X ONCE IV 06/05/21 11:30 06/05/21 12:06 DC 06/05/21 11:35 Vancomycin HCl 1.75 gm/Sodium Chloride 500 ml @ 250 mls/hr 1X ONCE IV 06/05/21 11:30 06/05/21 13:29 DC 06/05/21 12:11 ALLERGIES ALLERGIES: Coded Allergies: methylphenidate (Verified Allergy, Intermediate, 06/05/21) acetaminophen (Verified Adverse Reaction, Intermediate, Nausea, 12/29/17) codeine (Verified Adverse Reaction, Intermediate, Nausea, 12/29/17) fentanyl (Verified Adverse Reaction, Intermediate, Nausea, 12/29/17) hydrocodone (Verified Adverse Reaction, Intermediate, Nausea, 12/29/17) morphine (Verified Adverse Reaction, Intermediate, Nausea, 12/29/17) oxycodone (Verified Adverse Reaction, Intermediate, Nausea, 12/29/17) ROS Review of System 14point ROS conducted with pertinent positives noted above in hPI PHYSICAL EXAM General: Alert, Cooperative, No acute distress, Other (oriented to person and place) Lungs: Other (diminished bases) Heart: Regular rate (frequent PVC's ) Abdomen: Soft Extremities: Other (2+ RLE edema. Left AKA) Skin: No significant lesion Neuro: Normal speech, Sensation intact Psych/Mental Status: Mood NL MUSCULOSKELETAL: Osteoarthritic changes both hands VITALS/I&O VITALS/I&O: Vital Signs Date Time Temp Pulse Resp B/P (MAP) Pulse Ox O2 Delivery O2 Flow Rate FiO2 06/05/21 12:20 78 20 142/60 (87) 98 Nasal Cannula 2.0 06/05/21 09:58 98.6 98.6 LABS Lab: Laboratory Tests Test 06/05/21 09:37 06/05/21 10:10 White Blood Count 7.3 x10^3/uL (4.0-11.0) Red Blood Count 1.75 x10^6/uL (3.50-5.40) L Hemoglobin 6.1 g/dL (12.0-15.5) *L Hematocrit 19.1 % (36.0-47.0) *L Mean Corpuscular Volume 109 fL (79-100) H Mean Corpuscular Hemoglobin 35 pg (25-35) Mean Corpuscular Hemoglobin Concent 32 g/dL (31-37) Red Cell Distribution Width 19.0 % (11.5-14.5) H Platelet Count 215 x10^3/uL (140-400) Neutrophils (%) (Auto) 82 % (31-73) H Lymphocytes (%) (Auto) 11 % (24-48) L Monocytes (%) (Auto) 6 % (0-9) Eosinophils (%) (Auto) 1 % (0-3) Basophils (%) (Auto) 0 % (0-3) Neutrophils # (Auto) 6.0 x10^3/uL (1.8-7.7) Lymphocytes # (Auto) 0.8 x10^3/uL (1.0-4.8) L Monocytes # (Auto) 0.4 x10^3/uL (0.0-1.1) Eosinophils # (Auto) 0.0 x10^3/uL (0.0-0.7) Basophils # (Auto) 0.0 x10^3/uL (0.0-0.2) Prothrombin Time 14.6 SEC (11.7-14.0) H Prothrombin Time INR 1.1 (0.8-1.1) Activated Partial Thromboplast Time 34 SEC (24-38) Sodium Level 134 mmol/L (136-145) L Potassium Level 3.8 mmol/L (3.5-5.1) Chloride Level 95 mmol/L (98-107) L Carbon Dioxide Level 27 mmol/L (21-32) Anion Gap 12 (6-14) Blood Urea Nitrogen 40 mg/dL (7-20) H Creatinine 4.3 mg/dL (0.6-1.0) H Estimated GFR (Cockcroft-Gault) 10.3 BUN/Creatinine Ratio 9 (6-20) Glucose Level 239 mg/dL (70-99) H Calcium Level 8.2 mg/dL (8.5-10.1) L Magnesium Level 1.9 mg/dL (1.8-2.4) Total Bilirubin 0.3 mg/dL (0.2-1.0) Aspartate Amino Transferase (AST) 132 U/L (15-37) H Alanine Aminotransferase (ALT) 134 U/L (14-59) H Alkaline Phosphatase 113 U/L (46-116) Creatine Kinase 108 U/L (26-192) Troponin I High Sensitivity 21 ng/L (4-50) YX-[id number]-G-Type Natriuretic Peptide 6637 pg/mL (0-124) H Total Protein 6.2 g/dL (6.4-8.2) L Albumin 2.6 g/dL (3.4-5.0) L Albumin/Globulin Ratio 0.7 (1.0-1.7) L Ammonia 19 mcmol/L (11-34) Laboratory Tests 06/05/21 09:37 Laboratory Tests 06/05/21 09:37 ECHOCARDIOGRAM ECHOCARDIOGRAM <Conclusion> Left ventricle systolic function is normal. The Ejection Fraction is estimated at 60%. There is normal LV segmental wall motion. There is mild concentric left ventricular hypertrophy. Doppler and Color Flow revealed mild mitral regurgitation. Doppler and Color Flow revealed mild tricuspid regurgitation. The PA pressure was estimated at 54 mmHg. There is no evidence of significant pericardial effusion. DATE: 02/24/14 1323 10/06/18 - 2-D + DOPPLER ECHOCARDIOGRAM Interpretation Summary LVEF=65% Or Greater With Abnormal Septal Motion: Very Poor Visualization Moderate Right Ventricular Dilatation And Hypokinesis: See Contrast View # [id number]. Mild Concentric LVH Mild Left Atrial Dilataiton Valves Are Unremarkable No Pericardial Effusion STRESS TEST STRESS TEST 08/19/17 - Procedure: GATED REGADENOSON THALLIUM MPI STRESS TEST SUMMARY/OPINION: This study is abnormal .There is a small to moderate sized, partially reversible, moderate intensity, mid to basal inferior/inferolateral wall perfusion defect. Left ventricular systolic function is normal. There are no high risk prognostic indicators present. The ECG portion of the study is nondiagnostic for ischemia. Comparison is made with a prior [facility] study completed October 29, 2011. The left ventricular ejection fraction was 75% with left ventricular end-diastolic volume of 85 mL. The prior study simply identified a area of moderate intensity localized to the inferior/ inferior lateral wall with reversibility. The study is notable for prominent right ventricular uptake implying right ventricular hypertrophy. In aggregate the current study is low risk in regards to predicted annual cardiovascular mortality rate. ASSESSMENT/PLAN ASSESSMENT/PLAN 1. Encephalopathy; CT head without acute changes 2. Anemia; hgb 6.1. No obvious bleeding reported 3. Arrhythmia; frequent PVC's, bigeminy, and frequent brief bursts of NSVT. IV amiodarone initiated. also with 1st degree AVB and LBBB 4. CAD s/p CABG 2011; Echo 10/06 with preserved LV systolic function 5. Acute on chronic diastolic CHF 6. Hypertension; controlled 7. Hyperlipidemia; statin 8. Diabetes, II 9. ESRD on HD 10. Elevated LFTs 11. PAD s/p left AKA Recommendations Echo to assess LV systolic function TSH, Mg, lipids Secondary prevention No ASA, Plavix with anemia Continue Amiodarone for now Add BB therapy Transfuse as warranted Fluid offloading, management via HD Consider further ischemic evaluation Supportive care SAMIR BORREGO MD 06/05/21 2030: CARDIAC CONSULT ASSESSMENT/PLAN ASSESSMENT/PLAN Patient seen and examined. Agree with above nurse practitioner note. Supportive care given severe anemia. Continue treatment. Patient is a vasculopath. No present plans for any aggressive cardiovascular interventions Continue fluid offloading per dialysis. We will monitor closely for any arrhythmias. Continue antiarrhythmic with amiodarone. CALI HARDWICK APRN Jun 05, 2021 15:03 SAMIR BORREGO MD Jun 05, 2021 20:30
[2021-06-05 16:29] LABS: CHOLESTEROL/HDL RATIO 1.8
[2021-06-05] MEDS: METOPROLOL TART IMMED RELEASE 25 MG TABLET. PO SCH ×2 (21:00→22:28)
[2021-06-05] MEDS ORDERED: NYST1POW5 MC (23:24)
[2021-06-05] MEDS ORDERED: CYAN100031 PO (23:24)
[2021-06-06] VITALS (9 sets, daily range): BP systolic 92–137; BP diastolic 49–66
[2021-06-06] MEDS: METOPROLOL TART IMMED RELEASE 25 MG TABLET. PO SCH ×2 (08:22→23:35)
[2021-06-06] MEDS ORDERED: DEXTROSE ORAL GEL for NEWBORNS 3 ML. PO PRN (10:15)
[2021-06-06] MEDS ORDERED: ONDANSETRON ODT 4 MG TAB.RAPDIS. PO PRN (10:30)
--- NOTE | 2021-06-06 10:37 | PDOC2 ---
CONSULT Date of Consult Date of Consult DATE: 06/06/21 TIME: 10:31 Reason for Consult Reason for Consult: ESRD Source Source: Chart review History of Present Illness Reason for Visit: Patient is a 66 year old female who is brought in by EMS from her correction facility for reported altered mental status. The patient's reported that he has noticed that she has been "slow" and has seemed confused for at least 1 or 2 months. Patient denies any specific complaints. She is not sure why she is here. She denies any fall or injury. The nursing staff reportedly conveyed to EMS that they thought she had some facial droop. She denies chest pain , no shortness of breath. Denies abdominal pain , No nausea or vomiting. In the ER was noted to have frequent PVCs and episodes of nonsustained ventricular tachycardia. No subjective palpitations, diaphoresis or dizziness symptoms. Past Medical History Cardiovascular: CAD, CHF, HTN, Hyperlipidemia, Other (PAD ) Pulmonary: COPD, Other (DENISA) CENTRAL NERVOUS SYSTEM: CVA, Periperal neuropathy GI: Diverticulosis, GERD Heme/Onc: Anemia NOS Psych: Anxiety, Depression Musculoskeletal: Osteoarthritis Rheumatologic: Gout Renal/: Chronic renal failure (ESRD on HD) Endocrine: Diabetes Past Surgical History Past Surgical History: Appendectomy, Cholecystectomy, Other (Left AKA, fistula ) Family History Family History: Diabetes, Hypertension Social History ALCOHOL: none Drugs: None Lives: Correction Current Problem List Problem List Problems Medical Problems: (1) Altered mental status Status: Acute (2) Anemia Status: Acute (3) Non-sustained ventricular tachycardia Status: Acute Current Medications Current Medications Current Medications Sodium Bicarbonate (Sodium Bicarb Adult 8.4% Syr) 50 meq 1X ONCE IV Last adm inistered on 06/05/21at 10:00; Start 06/05/21 at 09:45; Stop 06/05/21 at 09:46; Status DC Calcium Gluconate (Calcium Gluconate) 1,000 mg 1X ONCE IVP Last administered on 06/05/21at 09:45; Start 06/05/21 at 09:45; Stop 06/05/21 at 09:46; Status DC Amiodarone HCl 150 mg/Dextrose 103 ml @ 618 mls/hr 1X ONCE IV Last administered on 06/05/21at 11:17; Start 06/05/21 at 11:00; Stop 06/05/21 at 11:09; Status DC Piperacillin Sod/ Tazobactam Sod 4.5 gm/Sodium Chloride 100 ml @ 200 mls/hr 1X ONCE IV ; Start 06/05/21 at 11:30; Stop 06/05/21 at 11:59; Status UNV Vancomycin HCl 250 ml @ 250 mls/hr 1X ONCE IV ; Start 06/05/21 at 11:30; Stop 06/05/21 at 12:29; Status UNV Amiodarone HCl 450 mg/Dextrose 259 ml @ 34.533 mls/ hr CONT PRN IV SEE I/O REC ORD Last administered on 06/05/21at 19:30; Start 06/05/21 at 11:30; Stop 06/06/21 at 11:16 Piperacillin Sod/ Tazobactam Sod 2.25 gm/Sodium Chloride 50 ml @ 100 mls/hr 1X ONCE IV Last administered on 06/05/21at 11:35; Start 06/05/21 at 11:30; Stop 06/05/21 at 12:06; Status DC Vancomycin HCl 1.75 gm/Sodium Chloride 500 ml @ 250 mls/hr 1X ONCE IV Last administered on 06/05/21at 12:11; Start 06/05/21 at 11:30; Stop 06/05/21 at 13:29; Status DC Metoprolol Tartrate (Lopressor) 25 mg BID PO Last administered on 06/06/21at 08:22; Start 06/05/21 at 21:00 Atorvastatin Calcium (Lipitor) 40 mg HS PO ; Start 06/06/21 at 21:00 Cyanocobalamin (Vitamin B-12) 1,000 mcg DAILY PO ; Start 06/06/21 at 11:00 Glucose (INSTA-GLUCOSE GEL for [place]) 38 ml 1X PRN PRN PO LOW BLOOD SUGAR; Start 06/06/21 at 10:15 Famotidine (Pepcid) 10 mg HS PO ; Start 06/06/21 at 21:00 Vitamin B Complex/ Vitamin C (Maribell-Prem) 1 tab DAILY PO ; Start 06/06/21 at 11:00 Gabapentin (Neurontin) 100 mg TID PO ; Start 06/06/21 at 11:00 Levothyroxine Sodium (Synthroid) 100 mcg DAILY06 PO ; Start 06/06/21 at 10:30 Metoclopramide HCl (Reglan) 10 mg TIDACHC PO ; Start 06/06/21 at 11:30 Polyethylene Glycol (miraLAX PACKET) 17 gm Q3DAYS PO ; Start 06/09/21 at 09:00 Glycerin/ Hypromellose/ Polyethylene (Artificial Tears) 1 drop BID OU ; Start 06/06/21 at 11:00 Psyllium Hydrophilic Mucilloid (Metamucil Fiber Packet) 1 pkt BID PO ; Start 06/06/21 at 11:00 Ropinirole HCl (Requip) 0.25 mg DAILY PO ; Start 06/06/21 at 11:00 Ropinirole HCl (Requip) 1 mg HS PO ; Start 06/06/21 at 21:00 Sennosides (Senna) 17.2 mg DAILY PO ; Start 06/06/21 at 11:00 Sevelamer Carbonate (Renvela) 2.4 gm TIDWMEALS PO ; Start 06/06/21 at 12:00 Non-Formulary Medication (Bimatoprost (Lumigan)) 1 drop QHS OS ; Start 06/06/21 at 21:00; Status UNV Non-Formulary Medication (Brimonidine Tartrate/Timolol (Combigan Eye Drops)) 1 drop BID OS ; Start 06/06/21 at 21:00; Status UNV Cyanocobalamin (Vitamin B-12) 1,000 mcg DAILY PO ; Start 06/06/21 at 11:00 Non-Formulary Medication (Insulin Aspart (Novolog)) 5 unit TIDAC SQ ; Start 06/06/21 at 11:30; Status UNV Non-Formulary Medication (Insulin Detemir (Levemir)) 10 unit DAILYWBKFT SQ ; Start 06/07/21 at 08:00; Status UNV Non-Formulary Medication (Insulin Detemir (Levemir)) 10 unit QHS SQ ; Start 06/06/21 at 21:00; Status UNV Lactobacillus Rhamnosus (Culturelle) 1 cap DAILY PO ; Start 06/06/21 at 11:00 Non-Formulary Medication (Linaclotide (Linzess)) 145 mcg DAILY07 PO ; Start 06/07/21 at 07:00; Status UNV Non-Formulary Medication (Midodrine Hcl ) 10 mg PRN Q8HRS PRN PO Low blood pressure; Start 06/06/21 at 10:15; Status UNV Non-Formulary Medication (Midodrine Hcl ) 10 mg QMWF PO ; Start 06/06/21 at 16:00; Status UNV Niacin (Niaspan) 500 mg QHS PO ; Start 06/06/21 at 21:00 Nystatin (Nystop) 1 rose BID TP ; Start 06/06/21 at 11:00 Ondansetron HCl (Zofran Odt) 4 mg PRN Q6HRS PRN PO NAUSEA; Start 06/06/21 at 10:30 Sertraline HCl (Zoloft) 50 mg DAILY PO ; Start 06/07/21 at 09:00 Zinc Sulfate (Orazinc) 220 mg DAILY PO ; Start 06/06/21 at 11:00 Piperacillin Sod/ Tazobactam Sod 2.25 gm/Sodium Chloride 50 ml @ 100 mls/hr Q8H IV ; Start 06/06/21 at 10:15; Status UNV Vancomycin HCl (Vanco Per Pharmacy) 1 each PRN DAILY PRN MC SEE COMMENTS; Start 06/06/21 at 10:15; Status UNV Active Scripts Active Reported Nystatin 1 Each Powder.ea. 1 Each MC BID B-12 (Cyanocobalamin (Vitamin B-12)) 1,000 Mcg Tablet.er 1 Tab PO DAILY 30 Days Tramadol Hcl 50 Mg Tablet 50 Mg PO Q6HRS PRN Zoloft (Sertraline Hcl) 100 Mg Tablet 50 Mg PO DAILY Zofran (Ondansetron Hcl) 4 Mg Tablet 1 Tab PO Q6HRS PRN Zinc 50 Mg Tablet 220 Mg PO DAILY 30 Days Synthroid (Levothyroxine Sodium) 100 Mcg Tablet 1 Tab PO DAILY Senna (Sennosides) 8.6 Mg Tablet 2 Tab PO DAILY Ropinirole Hcl 1 Mg Tablet 1 Mg PO HS Ropinirole Hcl 0.25 Mg Tablet 0.25 Mg PO DAILY Renvela (Sevelamer Carbonate) 2.4 Gm Powd.pack 2.4 Gm PO TIDWMEALS Maribell-Prem Tablet (Folic Acid/Vitamin B Comp W-C) 0.8 Mg Tablet 1 Tab PO DAILY 30 Days Reglan (Metoclopramide Hcl) 10 Mg Tablet 1 Tab PO TIDACHC 30 Days before food and bedtime Clopidogrel (Clopidogrel Bisulfate) 75 Mg Tablet 1 Tab PO DAILY Pepcid (Famotidine) 20 Mg Tablet 10 Mg PO HS Novolog (Insulin Aspart) 100 Unit/1 Ml Cartridge 0-16 Unit SQ TIDAC Novolog (Insulin Aspart) 100 Unit/1 Ml Cartridge 5 Unit SQ TIDAC Niacor (Niacin) 500 Mg Tablet 1 Tab PO QHS 30 Days Miralax (Polyethylene Glycol 3350) 17 Gm Powd.pack 1 Packet PO Q3DAYS 2 Days dissolve in water Midodrine Hcl 10 Mg Tablet 10 Mg PO QMWF Midodrine Hcl 10 Mg Tablet 10 Mg PO PRN Q8HRS PRN Metamucil Fiber Singles Packet (Psyllium Husk/Aspartame) 3.4 Gm Powd.pack 17 Gm PO BID Lumigan (Bimatoprost) 2.5 Ml Drops 1 Drop OS QHS Linzess (Linaclotide) 145 Mcg Capsule 145 Mcg PO DAILY07 Levemir (Insulin Detemir) 100 Unit/1 Ml Vial 10 Unit SQ DAILYWBKFT Levemir (Insulin Detemir) 100 Unit/1 Ml Vial 10 Unit SQ QHS Probiotic (Lactobacillus Acidophilus) 1 Each Capsule 1 Cap PO DAILY 10 Days Glucose Gel (Dextrose) 38 Gm Gel..gram. 38 Gm PO PRN PRN Gabapentin (Gabapentin) 100 Mg Capsule 100 Mg PO TID B-12 (Cyanocobalamin (Vitamin B-12)) 1,000 Mcg Tablet 1 Tab PO DAILY 30 Days Combigan Eye Drops (Brimonidine Tartrate/Timolol) 5 Ml Drops 1 Drop OS BID Atorvastatin Calcium 40 Mg Tablet 40 Mg PO HS Artificial Tears (Polyvinyl Alcohol) 15 Ml Drops 1 Drop EACHEYE BID 20 Days Allergies Allergies: Coded Allergies: methylphenidate (Verified Allergy, Intermediate, 06/05/21) acetaminophen (Verified Adverse Reaction, Intermediate, Nausea, 12/29/17) codeine (Verified Adverse Reaction, Intermediate, Nausea, 12/29/17) fentanyl (Verified Adverse Reaction, Intermediate, Nausea, 12/29/17) hydrocodone (Verified Adverse Reaction, Intermediate, Nausea, 12/29/17) morphine (Verified Adverse Reaction, Intermediate, Nausea, 12/29/17) oxycodone (Verified Adverse Reaction, Intermediate, Nausea, 12/29/17) ROS Review of System As per HPI, rest of the ROS is negative Physical Exam Physical Exam GENERAL: NAD HEENT: OM MOist ,blind in her left eye. NECK: Supple. HEART: RRR Lungs : Clear to auscultation , no use of accessory muscles ABDOMEN: distended, soft and nontender. NEUROLOGIC:AxO Ext- left AKA ,AVF left upper extremity, thrill, Bruit+ Trace Rt LE edema No daniel Vital Signs Vital Signs Date Time Temp Pulse Resp B/P (MAP) Pulse Ox O2 Delivery O2 Flow Rate FiO2 06/06/21 08:22 71 129/58 06/06/21 08:00 Nasal Cannula 2.0 06/06/21 07:00 98.3 20 100 98.3 Assessment & Plan ESRD - On HD- MWF- Dr. Finch Dialysis today, discussed treatment plan with DRn access Lt AVF Anemia- significant drop in Hgb compared to september labs , < 7 POA Received 1 Unit of PRBC, 2 nd unit scheduled . No history of GI bleed . GI consulted Encephalopathy; CT head without acute changes Arrhythmia; frequent PVC's, bigeminy, and frequent brief bursts of NSVT.Card consulted CAD s/p CABG 2011; Echo 10/06 with preserved LV systolic function Acute on chronic diastolic CHF, appears compensated Hypertension; controlled. Diabetes, II Elevated LFTs PAD History of left above-knee amputation. sleep apnea Labs Labs Laboratory Tests Test 06/05/21 09:37 06/05/21 10:10 06/05/21 20:45 06/06/21 07:47 White Blood Count 7.3 x10^3/uL (4.0-11.0) Red Blood Count 1.75 x10^6/uL (3.50-5.40) Hemoglobin 6.1 g/dL (12.0-15.5) Hematocrit 19.1 % (36.0-47.0) Mean Corpuscular Volume 109 fL (79-100) Mean Corpuscular Hemoglobin 35 pg (25-35) Mean Corpuscular Hemoglobin Concent 32 g/dL (31-37) Red Cell Distribution Width 19.0 % (11.5-14.5) Platelet Count 215 x10^3/uL (140-400) Neutrophils (%) (Auto) 82 % (31-73) Lymphocytes (%) (Auto) 11 % (24-48) Monocytes (%) (Auto) 6 % (0-9) Eosinophils (%) (Auto) 1 % (0-3) Basophils (%) (Auto) 0 % (0-3) Neutrophils # (Auto) 6.0 x10^3/uL (1.8-7.7) Lymphocytes # (Auto) 0.8 x10^3/uL (1.0-4.8) Monocytes # (Auto) 0.4 x10^3/uL (0.0-1.1) Eosinophils # (Auto) 0.0 x10^3/uL (0.0-0.7) Basophils # (Auto) 0.0 x10^3/uL (0.0-0.2) Prothrombin Time 14.6 SEC (11.7-14.0) Prothromb Time International Ratio 1.1 (0.8-1.1) Activated Partial Thromboplast Time 34 SEC (24-38) Sodium Level 134 mmol/L (136-145) Potassium Level 3.8 mmol/L (3.5-5.1) Chloride Level 95 mmol/L (98-107) Carbon Dioxide Level 27 mmol/L (21-32) Anion Gap 12 (6-14) Blood Urea Nitrogen 40 mg/dL (7-20) Creatinine 4.3 mg/dL (0.6-1.0) Estimated GFR (Cockcroft-Gault) 10.3 BUN/Creatinine Ratio 9 (6-20) Glucose Level 239 mg/dL (70-99) Calcium Level 8.2 mg/dL (8.5-10.1) Magnesium Level 1.9 mg/dL (1.8-2.4) Total Bilirubin 0.3 mg/dL (0.2-1.0) Aspartate Amino Transf (AST/SGOT) 132 U/L (15-37) Alanine Aminotransferase (ALT/SGPT) 134 U/L (14-59) Alkaline Phosphatase 113 U/L (46-116) Creatine Kinase 108 U/L (26-192) Troponin I High Sensitivity 21 ng/L (4-50) [id number]-Type Natriuretic Peptide 6637 pg/mL (0-124) Total Protein 6.2 g/dL (6.4-8.2) Albumin 2.6 g/dL (3.4-5.0) Albumin/Globulin Ratio 0.7 (1.0-1.7) Triglycerides Level 101 mg/dL (0-150) Cholesterol Level 99 mg/dL (0-200) LDL Cholesterol, Calculated 23 mg/dL (0-100) VLDL Cholesterol, Calculated 20 mg/dL (0-40) Non-HDL Cholesterol Calculated 43 mg/dL (0-129) HDL Cholesterol 56 mg/dL (40-60) Cholesterol/HDL Ratio 1.8 Thyroid Stimulating Hormone (TSH) 2.148 uIU/mL (0.358-3.74) Ammonia 19 mcmol/L (11-34) Glucose (Fingerstick) 141 mg/dL (70-99) 234 mg/dL (70-99) Laboratory Tests Test 06/05/21 20:45 06/06/21 07:47 Glucose (Fingerstick) 141 mg/dL (70-99) 234 mg/dL (70-99) Review All relevant outside records, renal labs, imaging studies, telemetry/EKG's were reviewed. Images Images Indication: Altered mental status Comparison: Chest radiograph October 02, 2020 Findings: No pneumothorax is seen. Patchy infiltrates are seen throughout the lungs. The heart is enlarged. Probable fusion of the right minor fissure noted. Prior median sternotomy noted. The external pacemaking leads obscure portions of the left chest. There is a le ft subclavian and axial vascular stent. IMPRESSION: 1. Patchy bilateral infiltrates. 2. Probable small pleural effusion tracking in the minor fissure on the right 3. Cardiomegaly NEVILLE ZIEGLER MD Jun 06, 2021 10:37
[2021-06-06] MEDS ORDERED: MIDODRINE 5 MG TABLET PO PRN (10:45)
[2021-06-06] MEDS: SENNOSIDES 8.6 MG TABLET PO SCH (11:00)
[2021-06-06] MEDS: MIDODRINE 5 MG TABLET PO SCH (11:00)
[2021-06-06] MEDS: GABAPENTIN 100 MG CAPSULE. PO SCH ×3 (11:00→21:00)
[2021-06-06] MEDS: ZINC SULFATE 220 MG CAPSULE. PO SCH (11:00)
[2021-06-06] MEDS: FOLIC/VIT B COMP W-C (RENAL) TABLET. PO SCH (11:00)
[2021-06-06] MEDS: LACTOBACILLUS RHAMNOSUS GG 1 CAPSULE. PO SCH (11:00)
[2021-06-06] MEDS: PSYLLIUM HUSK (SUGAR FREE) 1 PKT PACKET PO SCH ×2 (11:00→23:34)
[2021-06-06] MEDS ORDERED: CYANOCOBALAMIN (VITAMIN B-12) 1,000 MCG TABLET. PO SCH (11:00)
[2021-06-06] MEDS: LUBIPROSTONE 24 MCG CAPSULE PO SCH ×2 (11:00→17:00)
[2021-06-06] MEDS: POLYVINYL ALCOHOL 1.4% OPHTH SOLUTION 15ML BOTTLE. OU SCH ×2 (11:00→21:00)
[2021-06-06] MEDS: NYSTATIN TOPICAL POWDER 15GM BOTTLE. TP SCH ×2 (11:00→21:00)
[2021-06-06] MEDS: CYANOCOBALAMIN (VITAMIN B-12) 1,000 MCG TABLET. PO SCH (11:00)
[2021-06-06] MEDS: rOPINIRole 0.25 MG TABLET. PO SCH (11:00)
[2021-06-06 11:02] LABS: HEMATOCRIT 20.6 % (36.0-47.0); HEMOGLOBIN 6.6 g/dL (12.0-15.5)
[2021-06-06 11:06] LABS: CALCIUM 8.5 mg/dL (8.5-10.1); CREATININE 5.5 mg/dL (0.6-1.0); GFR 7.8; POTASSIUM 4.1 mmol/L (3.5-5.1)
--- NOTE | 2021-06-06 11:22 | PDOC ---
CALI HARDWICK AKILA 06/06/21 1121: CARDIO Progress Notes Date and Time Date of Service 06/06/21 Time of Evaluation 1120 Subjective Subjective: No Chest Pain, No shortness of breath, No Palpitations, No Dizziness Vitals Vitals Vital Signs Date Time Temp Pulse Resp B/P (MAP) Pulse Ox O2 Delivery O2 Flow Rate FiO2 06/06/21 08:22 71 129/58 06/06/21 08:00 Nasal Cannula 2.0 06/06/21 07:00 98.3 20 100 98.3 Weight Weight [ ] Input and Output Intake and Output Intake and Output 06/06/21 07:00 Intake Total 1036 ml Balance 1036 ml Intake Oral 100 ml IV Total 653 ml Blood Product IV Normal Saline Flush 283 ml Laboratory Labs Laboratory Tests Test 06/05/21 20:45 06/06/21 07:47 06/06/21 10:30 Glucose (Fingerstick) 141 mg/dL (70-99) 234 mg/dL (70-99) Hemoglobin 6.6 g/dL (12.0-15.5) Hematocrit 20.6 % (36.0-47.0) Sodium Level 133 mmol/L (136-145) Potassium Level 4.1 mmol/L (3.5-5.1) Chloride Level 95 mmol/L (98-107) Carbon Dioxide Level 28 mmol/L (21-32) Anion Gap 10 (6-14) Blood Urea Nitrogen 49 mg/dL (7-20) Creatinine 5.5 mg/dL (0.6-1.0) Estimated GFR (Cockcroft-Gault) 7.8 Glucose Level 197 mg/dL (70-99) Calcium Level 8.5 mg/dL (8.5-10.1) Physical Exam HEENT: Neck Supple W Full Motion Chest: Symmetric LUNGS: Other (diminished bases) Heart: RRR (SR) Abdomen: Soft N/T, Other (obese) Extremities: Other (left AKA) Neurology: alert, follow commands, other (oriented to person and place ) Assessment Assessment 1. Encephalopathy; CT head without acute changes 2. Anemia; hgb 6.1- s/p transfusion. Repeat hgc 6.6 today. No obvious bleeding. 3. Arrhythmia; frequent PVC's, bigeminy, and frequent brief bursts of NSVT in ED. Also with LBBB. No further ventricular arrhythmias on IV amiodarone, although does have significant 1st degree AV block 4. CAD s/p CABG 2011; Echo 10/06 with preserved LV systolic function 5. Acute on chronic diastolic CHF 6. Hypertension; controlled 7. Hyperlipidemia; statin 8. Diabetes, II 9. ESRD on HD 10. Elevated LFTs 11. PAD s/p left AKA Recommendations Echo pending Will discontinue amiodarone gtt with significant 1st degree AVB. Monitor tele for any further arrhythmias. Secondary prevention No ASA, Plavix with anemia Transfuse as warranted Fluid offloading, management via HD Supportive care Justicifation of Admission Dx: Justifications for Admission: Justification of Admission Dx: Yes SAMIR BORREGO MD 06/06/21 2319: CARDIO Progress Notes Plan Plan The patient was seen and interviewed as well as examined at the bedside. The chart was reviewed. The case was discussed. Agree with the plan of care. CALI HARDWICK APRN Jun 06, 2021 11:21 SAMIR BORREGO MD Jun 06, 2021 23:19
--- NOTE | 2021-06-06 12:15 | PDOC2 ---
GI CONSULT Date of Service: DATE: 06/06/21 TIME: 11:56 Reason For Consult: low Hgb 6.6 HPI: HPI: 66 y/o female from [place] w/ AMS. Cardiology following for arrhythmia. We are asked to see for anemia. Yesterday noted w/ Hgb 6.1, MCV 109 on admission and received 1 unit pRBCs in dialysis. Today Hgb 6.6. Average in 01/2020 (most recent admission) was 10-11 range. EGD in 12/2017 (Dr. Arita for melena, fall in Hgb) showed probable (path benign) and normal esophagus and duodenum. Advised to take PPI at that time. EGD and colonoscopy in 04/2014 (Dr. Estrella for GI bleeding): mild esophageal ulceration (other notes c/w pill esophagitis), gastritis (negative for H. pylori), normal colonic mucosa, and internal hemorrhoids w/ recent bleeding. Colonoscopy in 02/2014 noted diverticulosis. Apparently her mental status is better than yesterday but still seems somewhat confused. She denies any obvious bleeding including hematemesis, hematochezia, and melena. She has no GI complaints including reflux/heartburn, dysphagia, n/v, abdominal pain, diarrhea, constipation, change in appetite, and weight loss. She doesn't think she takes any GI-type medications. Med list includes famotidine, Reglan, B12, and Linzess. D/w nurse - no longer taking Plavix (but this is also included on summary list). Past records suggest h/o gastroparesis. H/o C Diff. S/p cholecystectomy. I don't believe any liver or pancreas history. No HFE mutation on past labs. PMH: PMH: CHF, PAD, HTN, cardiomyopathy, CAD, HLD, CVAs, DM, peripheral neuropathy, ESRD on HD, restless leg, DENISA, glaucoma CABG, left AKA, cholecystectomy, appendectomy FH: Family History: CAD Social History: ALCOHOL: none Drugs: None ROS: Bit difficult to obtain, see HPI. Vitals: Vitals: Vital Signs Date Time Temp Pulse Resp B/P (MAP) Pulse Ox O2 Delivery O2 Flow Rate FiO2 06/06/21 08:22 71 129/58 06/06/21 08:00 Nasal Cannula 2.0 06/06/21 07:00 98.3 20 100 98.3 Labs: Labs: Laboratory Tests Test 06/05/21 20:45 06/06/21 07:47 06/06/21 10:30 06/06/21 11:24 Glucose (Fingerstick) 141 mg/dL (70-99) 234 mg/dL (70-99) 196 mg/dL (70-99) Hemoglobin 6.6 g/dL (12.0-15.5) Hematocrit 20.6 % (36.0-47.0) Sodium Level 133 mmol/L (136-145) Potassium Level 4.1 mmol/L (3.5-5.1) Chloride Level 95 mmol/L (98-107) Carbon Dioxide Level 28 mmol/L (21-32) Anion Gap 10 (6-14) Blood Urea Nitrogen 49 mg/dL (7-20) Creatinine 5.5 mg/dL (0.6-1.0) Estimated GFR (Cockcroft-Gault) 7.8 Glucose Level 197 mg/dL (70-99) Calcium Level 8.5 mg/dL (8.5-10.1) Allergies: Coded Allergies: methylphenidate (Verified Allergy, Intermediate, 06/05/21) acetaminophen (Verified Adverse Reaction, Intermediate, Nausea, 12/29/17) codeine (Verified Adverse Reaction, Intermediate, Nausea, 12/29/17) fentanyl (Verified Adverse Reaction, Intermediate, Nausea, 12/29/17) hydrocodone (Verified Adverse Reaction, Intermediate, Nausea, 12/29/17) morphine (Verified Adverse Reaction, Intermediate, Nausea, 12/29/17) oxycodone (Verified Adverse Reaction, Intermediate, Nausea, 12/29/17) Medications: Current Medications Medications (Trade) Dose Ordered Sig/Diana Route PRN Reason Start Time Stop Time Status Last Admin Dose Admin Metoprolol Tartrate (Lopressor) 25 mg BID PO 06/05/21 21:00 06/06/21 08:22 Imaging: Imaging: CXR IMPRESSION: 1. Patchy bilateral infiltrates. 2. Probable small pleural effusion tracking in the minor fissure on the right 3. Cardiomegaly Head CT IMPRESSION: 1. No acute intracranial findings. 2. Moderate-sized hypodensity identified in the left parieto-occipital lobe similar to prior exam likely old infarct. Echo pending PE: GEN: NAD HEENT: Atraumatic, PERRL LUNGS: diminished anteriorly HEART: RRR ABD: NABS, S/NT, large EXTREMITY: left AKA NEURO/PSYCH: drowsy, confused - initially says she's at [facility] and the year is 2021 A/P: A/P: Encephalopathy, arrhythmia Chronic anemia - Hgb below recent baseline without obvious bleeding Elevated AST and ALT H/o CRC screen - I believe last in 2013 Diverticulosis H/o C Diff S/p cholecystectomy H/o CAD and CVAs - on Plavix? ESRD on HD -- Agree w/ PPI. Observe for bleeding, follow labs, transfuse as needed. Check iron and B12 (though has already transfused). Okay for PO per GI if mental status allows. PASQUALE MCKENNA Jun 06, 2021 12:15
[2021-06-06] MEDS: BRIMONIDINE 0.2% OPHTH SOLUTION 5ML BOTTLE. OS SCH ×2 (12:21→23:36)
[2021-06-06] MEDS: PIPERACILLIN/TAZOBACTAM 2.25 GM in IV NORMAL SALINE 50ML 50 ML IV SCH ×2 (12:21→23:34)
[2021-06-06] MEDS: TIMOLOL 0.5% OPHTH SOLUTION 5ML BOTTLE. OS SCH ×2 (12:21→23:36)
[2021-06-06] MEDS: SEVELAMER CARBONATE 2.4 GM PACKET. PO SCH ×2 (12:22→17:00)
[2021-06-06] MEDS: INSULIN LISPRO 300 UNITS/3 ML VIAL. SQ SCH ×2 (12:23→17:00)
[2021-06-06] MEDS: INSULIN GLARGINE SYRINGE. SQ SCH ×2 (12:24→23:34)
[2021-06-06] MEDS: LEVOTHYROXINE 100 MCG TABLET PO SCH (12:25)
[2021-06-06] MEDS: METOCLOPRAMIDE 10 MG TABLET. PO SCH ×3 (12:25→23:39)
[2021-06-06] MEDS ORDERED: DEXTROSE ORAL GEL 15 GM TUBE. PO PRN (13:00)
--- NOTE | 2021-06-06 14:16 | HP ---
DATE OF SERVICE: 06/06/2021 ADMIT DATE: 06/05/2021 HISTORY OF PRESENT ILLNESS: The patient is a 66-year-old female patient, a resident at [facility], who presented to the Emergency Room of [facility] with a complaint of altered mental status, her reports that she has noticed that she has been slow and has seemed confused for at least 1-2 months. The patient reports no specific complaints. She does seem somewhat confused. She is not sure why she is here. She denied any fall or injury. The nursing staff reportedly conveyed this and the nursing staff in the Emergency Room told she has some facial droop. The patient has not noted to have any facial droop on arrival. She stated that she had a cough, unknown how long, unknown if she is producing any sputum. She denies any chest pain. Denied any shortness of breath. She denies any abdominal pain. Denies any nausea or vomiting. She does have end-stage renal disease, on hemodialysis on Friday, Friday, Friday. She has not missed any dialysis. The patient is noted to have frequent PVCs and episodes of nonsustained ventricular tachycardia and this is something that she has had in the past. No indication that she is on any antiarrhythmics at this time. She denies any objective palpitation, diaphoresis, dizziness symptoms. Her thinks that perhaps gabapentin that she takes 3 times a day is to blame for her confusion. Her also stated that she seemed to be marginally weak and slightly more confused and in the last 2 days, when I last saw her at her facility, she was extensively investigated in the Emergency Room, has had lab work, which included a CBC, which showed hemoglobin of 6.1, hematocrit 19.1. Her chemistry was generally unremarkable except for elevated liver enzymes. Her BNP was high at 6637. Her prothrombin time, INR and APTT were normal. Her chest x-ray showed that the patient has patchy bilateral infiltrates, probable small pleural effusion tracking into the minor fissure on the right and cardiomegaly. The CT scan of the head showed no acute intracranial finding. Moderate sized hypodensity identified in the left parietooccipital lobe, similar to the prior exam, likely old infarct. She apparently was started on IV piperacillin and tazobactam as well as vancomycin for healthcare-associated pneumonia as well as amiodarone drip and was admitted for further evaluation and treatment. PAST MEDICAL HISTORY: Significant for; 1. 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 2. Hypertension. 3. Peripheral vascular disease; status post left above-knee amputation. 4. End-stage renal disease, on hemodialysis Friday, Friday, Friday. 5. Cerebrovascular accident. 6. Left-sided hemiplegia. 7. Hyperlipidemia. 8. Morbid obesity. 9. Obstructive sleep apnea. 10. Cardiomyopathy. PAST SURGICAL HISTORY: Significant for left arm arteriovenous fistula placement, cholecystectomy, left foot transmetatarsal amputation, revascularization attempted on her left lower extremity with resultant left above-knee amputation, coronary artery bypass graft surgery. She did have a colonoscopy and upper GI endoscopy. ALLERGIES: SHE IS ALLERGIC TO IODINE, OXYIR, HYDROCODONE, AND TYLENOL. FAMILY HISTORY: Noncontributory. SOCIAL HISTORY: She is ; however, she currently lives at [facility]. She does not smoke, drink alcohol, or use recreational drugs. REVIEW OF SYSTEMS: As per history of present illness. MEDICATIONS: She is currently on following medications: She is on midodrine 10 mg every 8 hours as needed and midodrine 10 mg before dialysis on Friday, Friday and Friday, Plavix 75 mg once a day, atorvastatin calcium 40 mg at bedtime, Niacin 500 mg at bedtime, tramadol 50 mg every 6 hours, gabapentin 100 mg 3 times a day, sertraline 50 mg daily. She is on Requip 0.25 mg daily and Requip 1 mg at bedtime. She is on zinc sulfate 220 mg once a day, sevelamer 2400 mg 3 times a day with meals. She is on dextrose 80 grams gel as needed for hypoglycemia, brimonidine tartrate/timolol for Combigan 1 drop to both eyes twice a day, bimatoprost or Lumigan 1 drop to both eyes at bedtime, polyvinyl alcohol artificial tears 1 drop to both eyes twice a day, Lactobacillus acidophilus 1 capsule daily, polyethylene glycol 17 grams daily. She is on psyllium, Aspartame 17 grams p.o. b.i.d., senna 2 tablets daily and ondansetron 4 mg every 6 hours p.r.n., famotidine 20 mg at bedtime, metoclopramide 10 mg t.i.d. before meals and linaclotide 145 mcg once a day. She is on NovoLog 5 units before meals, NovoLog 0-16 units before meals as needed, Levemir 10 units at bedtime. She is on levothyroxine sodium 100 mcg once a day, nystatin powder 1 apply topically twice a day, cyanocobalamin 1000 mcg tablet once a day and folic acid with vitamin B complex 1 tablet once a day. PHYSICAL EXAMINATION: GENERAL: On arrival to the Emergency Room, the patient apparently was lethargic, somewhat confused about arousable. She was pale, not jaundiced, cyanosed, or thyromegaly. No jugular venous distention. No limb edema. VITAL SIGNS: Her heart rate was 79, blood pressure 134/49, temperature was 98.6, respiratory rate was 20 and oxygen saturation was 95% on room air. HEAD, EYES, EARS, NOSE, AND THROAT: Normocephalic, atraumatic. NECK: Supple. HEART: Showed normal first and second heart sounds, no gallop or murmur. CHEST: Clear to auscultation, no crepitation or rhonchi. ABDOMEN: Distended, soft, nontender. NEUROLOGIC: She was confused, but without any obvious lateralizing sign. 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 There was definitely no facial droop. She moves her upper extremities without difficulty. She has right above-knee amputation. She is mostly bedbound, chair bound. LABORATORY DATA: Her lab work on arrival showed a white cell count 7300, hemoglobin 6.1, hematocrit 19.1, MCV 109, and platelet count 115,000 with a manual differential showed 82% polymorphs, 11% lymphocytes, 6% monocytes. Her chemistry showed a serum sodium 134, potassium 3.8, chloride 95, bicarbonate 27, anion gap of 12, BUN 40, creatinine 4.3. Estimated GFR was 10 mL per minute. Her glucose was 139, calcium was 8.2, magnesium was 1.9. Total bilirubin and alkaline phosphatase normal. AST, ALT slightly elevated. CK was 108. Troponin I high sensitivity was only 21. Beta natriuretic peptide was 6637. Total protein was 6.2, albumin was 2.6. Her prothrombin time was 14.6, INR 1.1, APTT was 34. Imaging studies showed that CT scan of the head showed no acute intracranial finding. She has a moderate size hypodensity identified in the left parietooccipital lobe, similar to prior exam, likely an old infarct. Her chest x-ray showed that she has bilateral infiltrate, probable small pleural effusion tracking into the minor fissure on the right side and cardiomegaly. ASSESSMENT AND PLAN: The patient was admitted; 1. With altered mental status. 2. Healthcare-associated pneumonia. 3. Recurrent nonsustained ventricular tachycardia. 4. End-stage renal disease. 5. Type 2 diabetes mellitus with triopathy. PLAN: To reconcile all her medications. Continue with IV antibiotic in the form of Zosyn and vancomycin. We consulted the Cardiology team as well as the Nephrology team. DANIELE/ROXIE/BERHANE DR: Ivone TID: [id number]
[2021-06-06] MEDS ORDERED: DIALYSIS PATIENT. MC PRN ×2 (15:45)
[2021-06-06] MEDS ORDERED: ALBUMIN HUMAN 25% 200 ML IV PRN (15:45)
[2021-06-06] MEDS ORDERED: IV NORMAL SALINE 1000ML BAG 1,000 ML IV PRN ×2 (15:45)
--- NOTE | 2021-06-06 15:45 | NUR ---
SS following for discharge planning. SS reviewed pt chart and discussed with pt RN. Pt is LTC resident from [facility], ; fax [phone]. Pt is currently requiring oxygen at two liters nasal canula. Pt on IV Zosyn. Cardiology, GI, and Nephrology following. Pt has hemodialysis Friday, Friday, and Friday. SS will continue to follow for discharge planning.
--- NOTE | 2021-06-06 16:58 | CARD ---
MR#: [id number] Date of Study: 06/06/2021 Ordering Physician: CALI HARDWICK, Referring Physician: CALI HARDWICK, Tech: Sabrina Dalprabhaleda, [facility] APPROVED REPORT EXAM: Two-dimensional and M-mode echocardiogram with Doppler and color Doppler. Other Information Quality : FairHR: 69bpm Technically limited study due to body habitus. INDICATION Arrhythmia Cardiac Disease: CAD Congestive Heart Failure RISK FACTORS Hypertension Hyperlipidemia Diabetes 2D DIMENSIONS RVDd3.7 (2.9-3.5cm)Left Atrium(2D)3.6 (1.6-4.0cm) IVSd1.2 (0.7-1.1cm)Aortic Root(2D)2.9 (2.0-3.7cm) LVDd5.4 (3.9-5.9cm)LVOT Diameter2.0 (1.8-2.4cm) PWd1.2 (0.7-1.1cm)LVDs3.6 (2.5-4.0cm) FS (%) 33.1 %SV85.7 ml LVEF(%)61.2 (>50%) Aortic Valve AoV Peak Sharad.202.5cm/sAoV VTI44.0cm AO Peak GR.16.4mmHgLVOT VTI 23.62cm AO Mean GR.8mmHg Mitral Valve MV E Qxjhpnhv646.7cm/sMV E Peak Gr.85mmHg MV DECEL [id number] A Mixovjeq324.0cm/s MV E Mean Gr.6mmHgE/A Ratio1.3 TDI Lateral E' P. V7.66cm/sMedial E' P. V5.73cm/s E/Lateral E'20.1E/Medial E'26.8 Tricuspid Valve TR P. Buptnocn153tf/sRAP [id number] TR Peak Gr.46qsExMSWB09jeNr Pulmonary Vein S1 Dwjdsnga22.9cm/sS2 Wrzngszu93.46cm/s D2 Iqzlqkue07.5cm/s LEFT VENTRICLE The left ventricle is normal size. There is mild concentric left ventricular hypertrophy. The left ve ntricular systolic function is normal and the ejection fraction is within normal range. The Ejection Fraction is 50-55%. Septal motion consistent with conduction abnormality. Otherwise, grossly normal w all motion. Tissue Doppler imaging reveals moderate left ventricular diastolic dysfunction. RIGHT VENTRICLE The right ventricle is mildly dilated. The right ventricle is mildly hypertrophied. The right ventric ular systolic function is normal. ATRIA The left atrium is borderline dilated. The right atrium is moderately dilated. The interatrial septum is intact with no evidence for an atrial septal defect or patent foramen ovale as noted on 2-D or Do ppler imaging. AORTIC VALVE The aortic valve is mildly thickened and calcified. Doppler and Color Flow revealed no significant ao rtic regurgitation. There is no significant aortic valvular stenosis. Calculated aortic valve area is 1.38 cm2 with maximum pressure gradient of 20 mmHg and mean pressure gradient of 11 mmHg. MITRAL VALVE The mitral valve is moderately thickened. There is no evidence of mitral valve prolapse. The mitral v alve has a mean gradient of 6.08 mmHg consistent with mild to moderate mitral valve stenosis. TRICUSPID VALVE The tricuspid valve is normal in structure and function. Doppler and Color Flow revealed trace tricus pid regurgitation with an estimated PAP of 66 mmHg. There is no tricuspid valve stenosis. PULMONIC VALVE The pulmonic valve is not well visualized. Doppler and Color Flow revealed trace pulmonic valvular re gurgitation. There is no pulmonic valvular stenosis. GREAT VESSELS The aortic root is normal in size. The ascending aorta is normal in size. The IVC is dilated and crissy apses <50% with inspiration. PERICARDIAL EFFUSION There is a small pericardial effusion. Critical Notification Critical Value: No <Conclusion> The left ventricular systolic function is normal and the ejection fraction is within normal range. Th e Ejection Fraction is 50-55%. Septal motion consistent with conduction abnormality. Otherwise, grossly normal wall motion. The mitral valve has a mean gradient of 6.08 mmHg consistent with mild to moderate mitral valve steno sis. Doppler and Color Flow revealed trace tricuspid regurgitation with an estimated PAP of 66 mmHg. There is a small pericardial effusion. Signed by : Nazario Sanchez, Electronically Approved : 06/06/2021 16:58:01
[2021-06-06] MEDS: VANCOMYCIN PER PHARMACY MC PRN (16:59)
[2021-06-06] MEDS ORDERED: NON FORMULARY ITEM (Insulin Detemir (Levemir) 10 UNIT) SQ SCH (21:00)
[2021-06-06] MEDS: LATANOPROST 0.005% OPHTH SOLUTION 2.5ML BOTTLE. OS SCH (21:00)
[2021-06-06] MEDS ORDERED: FAMOTIDINE 20 MG TABLET. PO SCH (21:00)
[2021-06-06] MEDS: ATORVASTATIN CALCIUM 40 MG TABLET. PO SCH (23:34)
[2021-06-06] MEDS: NIACIN ER 250 MG CAPSULE.ER PO SCH (23:35)
[2021-06-06] MEDS: rOPINIRole 1 MG TABLET. PO SCH (23:38)
[2021-06-07] VITALS (8 sets, daily range): BP systolic 79–119; BP diastolic 46–64
--- NOTE | 2021-06-07 01:49 | PN ---
DATE: 06/06/2021 SUBJECTIVE: The patient is resting, slightly propped up in bed, in no apparent distress. She is definitely more awake, alert. On questioning her, she denied any complaint, in particular, denied any chest pain, shortness of breath, orthopnea or paroxysmal nocturnal dyspnea. Denied any cough or phlegm. Denied any chills, rigors or fever. PHYSICAL EXAMINATION: GENERAL: When I saw her this morning, she looked pale, but not jaundiced or cyanosed. No thyromegaly. No jugular venous distention. No limb edema. VITAL SIGNS: Her heart rate was 70, blood pressure was 134/57, temperature was 98.3, respiratory rate 20, and oxygen saturation was 100% on 2 liters of oxygen. HEAD, EYES, EARS, NOSE, AND THROAT: Normocephalic, atraumatic. NECK: Supple. HEART: Showed normal first and second heart sounds. No gallop or murmur. CHEST: Shows central trachea, equal bilateral expansion, air entry . I could not appreciate any crepitation or rhonchi anteriorly. ABDOMEN: Distended, soft, nontender. NEUROLOGIC: She was definitely more awake, alert, responding appropriately. All cranial nerves intact. She moves upper extremities . She has right above-knee amputation. She is mostly bedbound, wheelchair bound. Her intake and output were incompletely recorded. LABORATORY DATA: Her lab work from this morning is still pending. ASSESSMENT: In summary, this is a 66-year-old female patient, a resident at [facility], who was admitted with: 1. Altered mental status that has improved. 2. Healthcare-associated pneumonia for which she was started on Zosyn and vancomycin. 3. Anemia with hemoglobin 6.1, hematocrit 19.1, for which she received 1 unit of packed RBCs. 4. She has end-stage renal disease, on hemodialysis on Friday, Friday, Friday. 5. She did have a recurrent episode of nonsustained ventricular tachycardia, for which she was seen by the [employer]. She is now on amiodarone drip and she is scheduled for an echocardiogram. PLAN: To continue with IV antibiotic. Continue medication. I held her Plavix and other medication that might be contributing to her altered mental status. I have consulted the complaint supervisor as today is her dialysis day. DANIELE/CHACHA/ELLA DR: Ivone TID: [id number]
[2021-06-07 06:08] LABS: HEMATOCRIT 22.3 % (36.0-47.0); HEMOGLOBIN 7.2 g/dL (12.0-15.5); RED BLOOD COUNT 2.18 x10^6/uL (3.50-5.40); RED CELL DISTRIBUTION WIDTH 22.1 % (11.5-14.5); WHITE BLOOD COUNT 7.5 x10^3/uL (4.0-11.0)
[2021-06-07 06:16] LABS: ALBUMIN 2.5 g/dL (3.4-5.0); ALBUMIN/GLOBULIN RATIO 0.7 (1.0-1.7); CALCIUM 8.5 mg/dL (8.5-10.1); CREATININE 3.2 mg/dL (0.6-1.0); GFR 14.5; POTASSIUM 3.8 mmol/L (3.5-5.1); TOTAL BILIRUBIN 0.3 mg/dL (0.2-1.0); TOTAL PROTEIN 6.1 g/dL (6.4-8.2)
[2021-06-07] MEDS: LEVOTHYROXINE 100 MCG TABLET PO SCH (06:27)
[2021-06-07] MEDS: PIPERACILLIN/TAZOBACTAM 2.25 GM in IV NORMAL SALINE 50ML 50 ML IV SCH ×3 (06:27→21:42)
[2021-06-07] MEDS: INSULIN LISPRO 300 UNITS/3 ML VIAL. SQ SCH ×3 (08:00→17:16)
--- NOTE | 2021-06-07 09:23 | PDOC ---
DATE OF SERVICE DATE: 06/07/21 TIME: 09:18 SUBJECTIVE ROS More awake, alert. she denies any complaints -no chest pain, shortness of breath, OBJECTIVE Vital Signs Vital Signs Date Time Temp Pulse Resp B/P (MAP) Pulse Ox O2 Delivery O2 Flow Rate FiO2 06/07/21 07:00 97.9 71 22 114/47 (69) 100 Nasal Cannula 2.0 97.9 I & 0 Intake and Output 06/07/21 07:00 Intake Total 450 ml Balance 450 ml Intake Oral 300 ml Blood Product IV Normal Saline Flush 150 ml PHYSICAL EXAM Physical Exam GENERAL: NAD HEENT: OM MOist ,blind in her left eye. NECK: Supple. HEART: RRR Lungs : Clear to auscultation , no use of accessory muscles ABDOMEN: distended, soft and nontender. NEUROLOGIC:AxO Ext- left AKA ,AVF left upper extremity, thrill, Bruit+ Trace Rt LE edema No daniel Vital Signs DIAGNOSIS/ASSESSMENT Assessment & Plan ESRD - On HD- MWF- Dr. Finch Currently no emergent indication for dialysis today access Lt AVF Anemia- significant drop in Hgb compared to september labs , < 7 POA Received 1 Unit of PRBC, 2 nd unit scheduled . No history of GI bleed . GI consulted Encephalopathy; CT head without acute changes Arrhythmia; frequent PVC's, bigeminy, and frequent brief bursts of NSVT.Card consulted CAD s/p CABG 2011; Echo 10/06 with preserved LV systolic function Acute on chronic diastolic CHF, appears compensated Hypertension; controlled. Diabetes, II Elevated LFTs PAD History of left above-knee amputation. sleep apnea COMMENT/RELEVANT DATA Meds Current Medications Medications (Trade) Dose Ordered Sig/Diana Start Time Stop Time Status Last Admin Dose Admin Albumin Human 200 ml @ 200 mls/hr 1X PRN PRN 06/06/21 15:45 06/06/21 21:44 DC Amiodarone HCl 150 mg/Dextrose 103 ml @ 618 mls/hr 1X ONCE 06/05/21 11:00 06/05/21 11:09 DC 06/05/21 11:17 618 MLS/HR Amiodarone HCl 450 mg/Dextrose 259 ml @ 34.533 mls/ hr CONT PRN 06/05/21 11:30 06/06/21 11:16 DC 06/05/21 19:30 17.7 MLS/HR Atorvastatin Calcium (Lipitor) 40 mg HS 06/06/21 21:00 06/06/21 23:34 40 MG Brimonidine Tartrate (Alphagan) 1 drop BID 06/06/21 11:00 06/06/21 23:36 1 DROP Calcium Gluconate (Calcium Gluconate) 1,000 mg 1X ONCE 06/05/21 09:45 06/05/21 09:46 DC 06/05/21 09:45 1,000 MG Cyanocobalamin (Vitamin B-12) 1,000 mcg DAILY 06/06/21 11:00 Famotidine (Pepcid) 10 mg HS 06/06/21 21:00 06/06/21 11:50 DC Gabapentin (Neurontin) 100 mg TID 06/06/21 11:00 Glucose (INSTA-GLUCOSE GEL for [place]) 38 ml 1X PRN PRN 06/06/21 10:15 06/06/21 12:45 DC Glucose (Insta-Glucose) 15 gm PRN Q15MIN PRN 06/06/21 13:00 Glycerin/ Hypromellose/ Polyethylene (Artificial Tears) 1 drop BID 06/06/21 11:00 06/06/21 21:00 1 DROP Info (PHARMACY MONITORING -- do not chart) 1 each PRN DAILY PRN 06/06/21 15:45 Insulin Glargine (Lantus Syringe) 10 unit QHS 06/06/21 21:00 06/06/21 23:34 10 UNIT Insulin Human Lispro (HumaLOG) 5 units TIDWMEALS 06/06/21 12:00 06/06/21 12:23 5 UNITS Lactobacillus Rhamnosus (Culturelle) 1 cap DAILY 06/06/21 11:00 Latanoprost (Xalatan) 1 drop QHS 06/06/21 21:00 06/06/21 21:00 1 DROP Levothyroxine Sodium (Synthroid) 100 mcg DAILY06 06/06/21 10:30 06/07/21 06:27 100 MCG Lubiprostone (Amitiza) 24 mcg BIDWMEALS 06/06/21 11:00 Metoclopramide HCl (Reglan) 10 mg TIDACHC 06/06/21 11:30 06/06/21 23:39 10 MG Metoprolol Tartrate (Lopressor) 25 mg BID 06/05/21 21:00 06/06/21 23:35 25 MG Midodrine (Proamatine) 10 mg MoWeFr 06/06/21 11:00 Niacin (Niaspan) 500 mg QHS 06/06/21 21:00 06/06/21 23:35 500 MG Non-Formulary Medication (Insulin Detemir (Levemir)) 10 unit QHS 06/06/21 21:00 Cancel Nystatin (Nystop) 1 rose BID 06/06/21 11:00 06/06/21 21:00 1 ROSE Ondansetron HCl (Zofran Odt) 4 mg PRN Q6HRS PRN 06/06/21 10:30 Pantoprazole Sodium (Protonix) 40 mg DAILYAC 06/07/21 07:30 Piperacillin Sod/ Tazobactam Sod 2.25 gm/Sodium Chloride 50 ml @ 100 mls/hr Q8HRS 06/06/21 11:00 06/07/21 06:27 100 MLS/HR Piperacillin Sod/ Tazobactam Sod 4.5 gm/Sodium Chloride 100 ml @ 200 mls/hr 1X ONCE 06/05/21 11:30 06/05/21 11:59 UNV Polyethylene Glycol (miraLAX PACKET) 17 gm Q3DAYS 06/09/21 09:00 Psyllium Hydrophilic Mucilloid (Metamucil Fiber Packet) 1 pkt BID 06/06/21 11:00 06/06/21 23:34 1 PKT Ropinirole HCl (Requip) 1 mg HS 06/06/21 21:00 06/06/21 23:38 1 MG Sennosides (Senna) 17.2 mg DAILY 06/06/21 11:00 Sertraline HCl (Zoloft) 50 mg DAILY 06/07/21 09:00 Sevelamer Carbonate (Renvela) 2.4 gm TIDWMEALS 06/06/21 12:00 06/06/21 12:22 2.4 GM Sodium Bicarbonate (Sodium Bicarb Adult 8.4% Syr) 50 meq 1X ONCE 06/05/21 09:45 06/05/21 09:46 DC 06/05/21 10:00 50 MEQ Sodium Chloride 1,000 ml @ 400 mls/hr Q2H30M PRN 06/06/21 15:45 06/07/21 03:44 DC Timolol Maleate (Timoptic 0.5% Oph) 1 drop BID 06/06/21 11:00 06/06/21 23:36 1 DROP Vancomycin HCl (Vanco Per Pharmacy) 1 each PRN DAILY PRN 06/06/21 10:15 06/06/21 16:59 1 EACH Vancomycin HCl (Vancomycin Random Level) 1 each 1X ONCE 06/08/21 06:00 06/08/21 06:01 Vancomycin HCl 1.75 gm/Sodium Chloride 500 ml @ 250 mls/hr 1X ONCE 06/05/21 11:30 06/05/21 13:29 DC 06/05/21 12:11 250 MLS/HR Vitamin B Complex/ Vitamin C (Maribell-Prem) 1 tab DAILY 06/06/21 11:00 Zinc Sulfate (Orazinc) 220 mg DAILY 06/06/21 11:00 Lab Laboratory Tests Test 06/06/21 10:30 06/06/21 11:24 06/06/21 18:24 06/06/21 20:20 Hemoglobin 6.6 g/dL (12.0-15.5) Hematocrit 20.6 % (36.0-47.0) Sodium Level 133 mmol/L (136-145) Potassium Level 4.1 mmol/L (3.5-5.1) Chloride Level 95 mmol/L (98-107) Carbon Dioxide Level 28 mmol/L (21-32) Anion Gap 10 (6-14) Blood Urea Nitrogen 49 mg/dL (7-20) Creatinine 5.5 mg/dL (0.6-1.0) Estimated GFR (Cockcroft-Gault) 7.8 Glucose Level 197 mg/dL (70-99) Calcium Level 8.5 mg/dL (8.5-10.1) Hepatitis B Surface Antibody Nonreactive Glucose (Fingerstick) 196 mg/dL (70-99) 109 mg/dL (70-99) 126 mg/dL (70-99) Test 06/07/21 03:40 06/07/21 07:38 White Blood Count 7.5 x10^3/uL (4.0-11.0) Red Blood Count 2.18 x10^6/uL (3.50-5.40) Hemoglobin 7.2 g/dL (12.0-15.5) Hematocrit 22.3 % (36.0-47.0) Mean Corpuscular Volume 102 fL (79-100) Mean Corpuscular Hemoglobin 33 pg (25-35) Mean Corpuscular Hemoglobin Concent 32 g/dL (31-37) Red Cell Distribution Width 22.1 % (11.5-14.5) Platelet Count 179 x10^3/uL (140-400) Sodium Level 136 mmol/L (136-145) Potassium Level 3.8 mmol/L (3.5-5.1) Chloride Level 99 mmol/L (98-107) Carbon Dioxide Level 29 mmol/L (21-32) Anion Gap 8 (6-14) Blood Urea Nitrogen 24 mg/dL (7-20) Creatinine 3.2 mg/dL (0.6-1.0) Estimated GFR (Cockcroft-Gault) 14.5 BUN/Creatinine Ratio 8 (6-20) Glucose Level 95 mg/dL (70-99) Calcium Level 8.5 mg/dL (8.5-10.1) Total Bilirubin 0.3 mg/dL (0.2-1.0) Aspartate Amino Transf (AST/SGOT) 150 U/L (15-37) Alanine Aminotransferase (ALT/SGPT) 219 U/L (14-59) Alkaline Phosphatase 99 U/L (46-116) Total Protein 6.1 g/dL (6.4-8.2) Albumin 2.5 g/dL (3.4-5.0) Albumin/Globulin Ratio 0.7 (1.0-1.7) Glucose (Fingerstick) 111 mg/dL (70-99) Results All relevant outside records, renal labs, imaging studies, telemetry/EKG's were reviewed. Justicifation of Admission Dx: Justifications for Admission: Justification of Admission Dx: Yes NEVILLE ZIEGLER MD Jun 07, 2021 09:23
[2021-06-07] MEDS: FOLIC/VIT B COMP W-C (RENAL) TABLET. PO SCH (09:43)
[2021-06-07] MEDS: ZINC SULFATE 220 MG CAPSULE. PO SCH (09:43)
[2021-06-07] MEDS: LUBIPROSTONE 24 MCG CAPSULE PO SCH ×2 (09:44→17:00)
[2021-06-07] MEDS: PANTOPRAZOLE 40 MG TABLET.DR. PO SCH (09:44)
[2021-06-07] MEDS: SERTRALINE 50 MG TABLET. PO SCH (09:44)
[2021-06-07] MEDS: METOCLOPRAMIDE 10 MG TABLET. PO SCH ×4 (09:44→21:44)
[2021-06-07] MEDS: LACTOBACILLUS RHAMNOSUS GG 1 CAPSULE. PO SCH (09:46)
[2021-06-07] MEDS: CYANOCOBALAMIN (VITAMIN B-12) 1,000 MCG TABLET. PO SCH (09:46)
[2021-06-07] MEDS: METOPROLOL TART IMMED RELEASE 25 MG TABLET. PO SCH ×2 (09:46→21:00)
[2021-06-07] MEDS: rOPINIRole 0.25 MG TABLET. PO SCH (09:46)
[2021-06-07] MEDS: SENNOSIDES 8.6 MG TABLET PO SCH (09:47)
[2021-06-07] MEDS: SEVELAMER CARBONATE 2.4 GM PACKET. PO SCH ×3 (09:51→17:09)
[2021-06-07] MEDS: PSYLLIUM HUSK (SUGAR FREE) 1 PKT PACKET PO SCH ×2 (09:53→21:44)
[2021-06-07] MEDS: POLYVINYL ALCOHOL 1.4% OPHTH SOLUTION 15ML BOTTLE. OU SCH ×2 (09:58→21:43)
[2021-06-07] MEDS: BRIMONIDINE 0.2% OPHTH SOLUTION 5ML BOTTLE. OS SCH ×2 (10:00→21:43)
[2021-06-07] MEDS: TIMOLOL 0.5% OPHTH SOLUTION 5ML BOTTLE. OS SCH ×2 (10:01→21:43)
[2021-06-07] MEDS: NYSTATIN TOPICAL POWDER 15GM BOTTLE. TP SCH ×2 (10:02→21:42)
[2021-06-07] MEDS: INSULIN GLARGINE SYRINGE. SQ SCH ×2 (10:10→21:00)
--- NOTE | 2021-06-07 10:11 | PN ---
DATE: 06/07/2021 SUBJECTIVE: The patient is sitting slightly propped up in bed, eating her breakfast comfortably, in no apparent distress. She is awake, alert. On questioning her, denied any complaint. The nursing staff did not voice any concerns, stated that she had an uneventful night. She did drop her H and H again yesterday down to 6.6 and 20.6 and did receive another unit of packed RBCs. She was seen in consultation by the pipe testing technician and they basically recommended to continue with proton pump inhibitor and to observe her for bleeding and transfuse as needed. Her serum iron and B12 were checked and they were normal and they recommended that she can continue to eat and drink. Apparently, the plan is to observe her and we will decide on upper GI endoscopy if deemed necessary. PHYSICAL EXAMINATION: GENERAL: When I saw her this morning, she looked well and was clearly in no apparent respiratory distress. She was pale, but no jaundice, cyanosis or thyromegaly. No jugular venous distention. No limb edema. VITAL SIGNS: Her heart rate was 71, blood pressure is 114/47, temperature was 97.9, respiratory rate was 22 and oxygen saturation was 100% on 2 liters of oxygen. HEAD, EYES, EARS, NOSE, AND THROAT: Normocephalic, atraumatic. NECK: Supple. HEART: Showed normal first and second heart sounds. No gallop, rub or murmur. CHEST: Clear to auscultation, no crepitation or rhonchi. ABDOMEN: Distended, soft, nontender. NEUROLOGIC: She is definitely more awake, alert, responding appropriately. Her cranial nerves are intact. She is blind in her right eye. She moves upper extremities without any difficulty. She has right above-knee amputation. She is mostly bedbound, chair bound. Her intake is 1000. No output was recorded. LABORATORY DATA: This morning showed a white cell count 7500, hemoglobin 7.2, hematocrit 22, MCV 102 and platelet count of 179,000. Her chemistry this morning showed a serum sodium 133, potassium 4.1, chloride 95, bicarbonate 28, anion gap of 10, BUN 49, creatinine 5.5. Estimated GFR was 7.8 mL per minute. Her glucose was 97, calcium was 8.5. Serum ammonia was 19. Serum B12 was 1768. Serum iron 49, TIBC was 335 and iron saturation was 15. ASSESSMENT: 1. Altered mental status, improving. 2. Healthcare-associated pneumonia for which she is started on Zosyn and vancomycin. 3. Anemia with hemoglobin 6.1, hematocrit 19.1, for which she received actually 2 units of packed RBCs. Today's hemoglobin and hematocrit are 7.2 and 22.3. 4. She has end-stage renal disease, on hemodialysis Friday, Friday, Friday. 5. She did have recurrent episodes of nonsustained ventricular tachycardia for which she was seen by the jewish history professor. She was on amiodarone drip that was discontinued and her echocardiogram showed that her left ventricular systolic function is normal and ejection fraction is within normal range. Ejection fraction was 50-55%. Septal motion consistent with conduction abnormality. The mitral valve has a mean gradient of 6.08 mmHg consistent with mild to moderate mitral valve stenosis. Doppler and color flow revealed trace tricuspid regurgitation and estimated pulmonary artery pressure of 66 mmHg. There is a small pericardial effusion. My plan is to continue with antibiotics. So far, her blood cultures negative and we will continue to monitor her H and H and transfuse her as needed. Continue with hemodialysis as per Nephrology team and continue to monitor her blood sugar and adjust insulin as needed. DANIELE/DORYS DR: Ivone TID: [id number]
--- NOTE | 2021-06-07 10:29 | PDOC ---
Date of Service: DATE: 06/07/21 TIME: 10:14 Subjective: Subjective: Eating okay. No bleeding. Hasn't stooled. Objective: Vital Signs: Vital Signs Date Time Temp Pulse Resp B/P (MAP) Pulse Ox O2 Delivery O2 Flow Rate FiO2 06/07/21 07:00 97.9 71 22 114/47 (69) 100 Nasal Cannula 2.0 97.9 Labs: Laboratory Tests Test 06/06/21 10:30 06/06/21 11:24 06/06/21 18:24 06/06/21 20:20 Hemoglobin 6.6 g/dL Hematocrit 20.6 % Sodium Level 133 mmol/L Potassium Level 4.1 mmol/L Chloride Level 95 mmol/L Carbon Dioxide Level 28 mmol/L Anion Gap 10 Blood Urea Nitrogen 49 mg/dL Creatinine 5.5 mg/dL Estimated GFR (Cockcroft-Gault) 7.8 Glucose Level 197 mg/dL Calcium Level 8.5 mg/dL Hepatitis B Surface Antibody Nonreactive Glucose (Fingerstick) 196 mg/dL 109 mg/dL 126 mg/dL Test 06/07/21 03:40 06/07/21 07:38 White Blood Count 7.5 x10^3/uL Red Blood Count 2.18 x10^6/uL Hemoglobin 7.2 g/dL Hematocrit 22.3 % Mean Corpuscular Volume 102 fL Mean Corpuscular Hemoglobin 33 pg Mean Corpuscular Hemoglobin Concent 32 g/dL Red Cell Distribution Width 22.1 % Platelet Count 179 x10^3/uL Sodium Level 136 mmol/L Potassium Level 3.8 mmol/L Chloride Level 99 mmol/L Carbon Dioxide Level 29 mmol/L Anion Gap 8 Blood Urea Nitrogen 24 mg/dL Creatinine 3.2 mg/dL Estimated GFR (Cockcroft-Gault) 14.5 BUN/Creatinine Ratio 8 Glucose Level 95 mg/dL Calcium Level 8.5 mg/dL Total Bilirubin 0.3 mg/dL Aspartate Amino Transf (AST/SGOT) 150 U/L Alanine Aminotransferase (ALT/SGPT) 219 U/L Alkaline Phosphatase 99 U/L Total Protein 6.1 g/dL Albumin 2.5 g/dL Albumin/Globulin Ratio 0.7 Glucose (Fingerstick) 111 mg/dL Imaging: Echo <Conclusion> The left ventricular systolic function is normal and the ejection fraction is within normal range. The Ejection Fraction is 50-55%. Septal motion consistent with conduction abnormality. Otherwise, grossly normal wall motion. The mitral valve has a mean gradient of 6.08 mmHg consistent with mild to moderate mitral valve stenosis. Doppler and Color Flow revealed trace tricuspid regurgitation with an estimated PAP of 66 mmHg. There is a small pericardial effusion. PE: GEN: NAD, eating breakfast LUNGS: clear anteriorly HEART: RR ABD: large, soft, non-tender NEURO/PSYCH: A & O 3, probably a little fuzzy on details A/P: Encephalopathy, arrhythmia/LBBB Chronic anemia - below baseline without reported bleeding - improved w/ transfusions, not iron or B12 deficient (drawn after transfusion), normal TSH Elevated AST and ALT H/o - changed from H2 ian to PPI H/o CAD, CVA, ESRD -- Continue PPI, monitor Hgb. Seems has h/o constipation - has several treatment options - observe. Justicifation of Admission Dx: Justifications for Admission: Justification of Admission Dx: Yes PASQUALE MCKENNA Jun 07, 2021 10:29
[2021-06-07] MEDS: VANCOMYCIN PER PHARMACY MC PRN ×3 (10:55→12:10)
--- NOTE | 2021-06-07 12:08 | NUR ---
Pharmacy Vancomycin Dosing Note S: Consulted to monitor and dose vancomycin started 06/05/21. O: LAINE KING is a 66 year old F with HCAP. Other Antibiotics: ZOSYN 2.25G IV Q8HRS LABS: Last BUN: 24 Last Creatinine: 3.2 Creatinine Clearance: ESRD on HD MWF Last WBC: 7.5 Tmax (past 24 hours): 98 Microbiology: BLOOD CX (06/05): NGTD I/O: 450/- Drug Levels: Last Random level: 16.3 on 06/07/21 at 0500 Last dose given 06/05/21 at 1211 A: Patient received vancomycin 1.75g x 1 dose 06/05; was dialyzed 06/06. A post-HD random level is 16.3 mcg/ml. P: 1. Start vancomycin 500 mg IV qMWF after HD sessions, start 06/08/21 2. Follow up random level in 5 - 7 days 3. Pharmacy will continue to monitor, follow and adjust therapy as needed. ANIKET HERNANDEZ [facility], 06/07/21 [id number]
--- NOTE | 2021-06-07 12:25 | PDOC ---
CALI HARDWICK GEOLOGICAL ENGINEER 06/07/21 1225: CARDIO Progress Notes Date and Time Date of Service 06/07/21 Time of Evaluation 1220 Subjective Subjective: No Chest Pain, No shortness of breath, No Palpitations, No Dizziness Vitals Vitals Vital Signs Date Time Temp Pulse Resp B/P (MAP) Pulse Ox O2 Delivery O2 Flow Rate FiO2 06/07/21 10:17 97.4 68 22 119/64 (82) 97 Nasal Cannula 2.0 97.4 Weight Weight [ ] Input and Output Intake and Output Intake and Output 06/07/21 07:00 Intake Total 450 ml Balance 450 ml Intake Oral 300 ml Blood Product IV Normal Saline Flush 150 ml Laboratory Labs Laboratory Tests Test 06/06/21 18:24 06/06/21 20:20 06/07/21 03:40 06/07/21 07:38 Glucose (Fingerstick) 109 mg/dL (70-99) 126 mg/dL (70-99) 111 mg/dL (70-99) White Blood Count 7.5 x10^3/uL (4.0-11.0) Red Blood Count 2.18 x10^6/uL (3.50-5.40) Hemoglobin 7.2 g/dL (12.0-15.5) Hematocrit 22.3 % (36.0-47.0) Mean Corpuscular Volume 102 fL (79-100) Mean Corpuscular Hemoglobin 33 pg (25-35) Mean Corpuscular Hemoglobin Concent 32 g/dL (31-37) Red Cell Distribution Width 22.1 % (11.5-14.5) Platelet Count 179 x10^3/uL (140-400) Sodium Level 136 mmol/L (136-145) Potassium Level 3.8 mmol/L (3.5-5.1) Chloride Level 99 mmol/L (98-107) Carbon Dioxide Level 29 mmol/L (21-32) Anion Gap 8 (6-14) Blood Urea Nitrogen 24 mg/dL (7-20) Creatinine 3.2 mg/dL (0.6-1.0) Estimated GFR (Cockcroft-Gault) 14.5 BUN/Creatinine Ratio 8 (6-20) Glucose Level 95 mg/dL (70-99) Calcium Level 8.5 mg/dL (8.5-10.1) Total Bilirubin 0.3 mg/dL (0.2-1.0) Aspartate Amino Transf (AST/SGOT) 150 U/L (15-37) Alanine Aminotransferase (ALT/SGPT) 219 U/L (14-59) Alkaline Phosphatase 99 U/L (46-116) Total Protein 6.1 g/dL (6.4-8.2) Albumin 2.5 g/dL (3.4-5.0) Albumin/Globulin Ratio 0.7 (1.0-1.7) Random Vancomycin Level 16.3 mcg/mL Test 06/07/21 11:56 Glucose (Fingerstick) 175 mg/dL (70-99) Microbiology Micro Microbiology 06/05/21 Blood Culture - Preliminary, Resulted NO GROWTH AFTER 2 DAYS Physical Exam HEENT: Neck Supple W Full Motion Chest: Symmetric LUNGS: Other (diminished bases) Heart: RRR (SR) Abdomen: Soft N/T, Other (obese) Extremities: Other (left AKA) Neurology: alert, oriented, follow commands Assessment Assessment 1. Encephalopathy; CT head without acute changes 2. Anemia; requiring transfusion x2. hgb 7.2. No obvious bleeding. 3. Arrhythmia; frequent PVC's, bigeminy, and frequent brief bursts of NSVT in ED. Also with LBBB. Amiodarone discontinued due to prolonged first degree AVB. Presently SR, no arrhythmias overnight 4. CAD s/p CABG 2011; Echo 10/06 with preserved LV systolic function 5. Acute on chronic diastolic CHF; echo with preserved LV systolic function with an EF of 50-55%. 6. Hypertension; controlled 7. Hyperlipidemia; statin 8. Diabetes, II 9. ESRD on HD 10. Elevated LFTs 11. PAD s/p left AKA 12. Mild to moderate mitral valve stenosis. Recommendations Monitor tele for any further arrhythmias. Secondary prevention No ASA, Plavix with anemia Monitor hgb, transfuse as warranted Fluid offloading, management via HD Supportive care Justicifation of Admission Dx: Justifications for Admission: Justification of Admission Dx: Yes SAMIR BORREGO MD 06/07/21 1635: CARDIO Progress Notes Plan Plan Pt. seen and examined. Agree with above SEPTIC PUMP TRUCK DRIVER note. Supportive care. CALI HARDWICK APRN Jun 07, 2021 12:25 SAMIR BORREGO MD Jun 07, 2021 16:35
--- NOTE | 2021-06-07 14:03 | NUR ---
SS following up with discharge planning. SS reviewed pt chart and discussed with pt RN. Pt is currently requiring oxygen at two liters nasal canula. Pt on IV Zosyn and IV Vancomycin. Pt has outpatient hemodialysis Friday, Friday, and Friday. Pt is LTC resident from [facility], ; fax [phone]. SS phoned and faxed updated clinical to [facility]. Packet placed on chart. SS will continue to follow for discharge planning.
[2021-06-07] MEDS: MIDODRINE 5 MG TABLET PO SCH (15:48)
[2021-06-07 16:17] LABS: FECAL OB PT NEGATIVE (NEG)
--- NOTE | 2021-06-07 18:30 | NUR ---
Patient's IV's both leaking & unable to fix so they were removed. Patient unable to get full afternoon dose of antibiotic. 3 floor nurses tried to start new one & were unsuccessful. Nursing cigar tobacco processing supervisor notified. Addendum: 06/07/21 at 1854 by JANUSZ DUPREE RN Notified Dr. Monroe about IV situation & he is ok with anesthesia trying if needed. Also, notified him of patient's dark, loose stools & hypotension. Will continue to monitor.
[2021-06-07 20:20] LABS: HEMATOCRIT 24.8 % (36.0-47.0)
[2021-06-07] MEDS: LATANOPROST 0.005% OPHTH SOLUTION 2.5ML BOTTLE. OS SCH (21:43)
[2021-06-07] MEDS: ATORVASTATIN CALCIUM 40 MG TABLET. PO SCH (21:44)
[2021-06-07] MEDS: NIACIN ER 250 MG CAPSULE.ER PO SCH (21:44)
[2021-06-07] MEDS: rOPINIRole 1 MG TABLET. PO SCH (21:44)
[2021-06-07] MEDS ORDERED: MIDODRINE 5 MG TABLET ONE (23:00)
[2021-06-07] MEDS ORDERED: LACTOBACILLUS RHAMNOSUS GG 1 CAPSULE. PO ONE (23:00)
[2021-06-08 02:05] VITALS: BP 81/42
[2021-06-08 04:14] LABS: HEMOGLOBIN 7.5 g/dL (12.0-15.5)
[2021-06-08 04:39] LABS: CALCIUM 8.5 mg/dL (8.5-10.1); CREATININE 4.5 mg/dL (0.6-1.0); GFR 9.8; POTASSIUM 4.2 mmol/L (3.5-5.1)
[2021-06-08] MEDS ORDERED: VANCOMYCIN RANDOM LEVEL. MC ONE (06:00)
[2021-06-08] MEDS: PIPERACILLIN/TAZOBACTAM 2.25 GM in IV NORMAL SALINE 50ML 50 ML IV SCH ×3 (06:00→22:00)
[2021-06-08 06:05] VITALS: BP 103/63
[2021-06-08] MEDS: METOCLOPRAMIDE 10 MG TABLET. PO SCH ×4 (07:30→21:42)
[2021-06-08] MEDS: LEVOTHYROXINE 100 MCG TABLET PO SCH (07:55)
[2021-06-08] MEDS: LUBIPROSTONE 24 MCG CAPSULE PO SCH ×3 (08:00→17:01)
[2021-06-08] MEDS: INSULIN LISPRO 300 UNITS/3 ML VIAL. SQ SCH ×3 (08:00→16:05)
[2021-06-08] MEDS: PSYLLIUM HUSK (SUGAR FREE) 1 PKT PACKET PO SCH ×2 (08:00→21:41)
[2021-06-08] MEDS: SENNOSIDES 8.6 MG TABLET PO SCH (08:00)
[2021-06-08] MEDS: INSULIN GLARGINE SYRINGE. SQ SCH ×3 (08:00→21:59)
[2021-06-08] MEDS: SEVELAMER CARBONATE 2.4 GM PACKET. PO SCH ×4 (08:00→17:01)
--- NOTE | 2021-06-08 08:23 | PDOC ---
DATE OF SERVICE DATE: 06/08/21 TIME: 08:22 SUBJECTIVE ROS No complaints during dialysis OBJECTIVE Vital Signs Vital Signs Date Time Temp Pulse Resp B/P (MAP) Pulse Ox O2 Delivery O2 Flow Rate FiO2 06/08/21 06:05 98.4 67 22 103/63 (76) 100 Nasal Cannula 2.0 98.4 I & 0 Intake and Output 06/08/21 07:00 Intake Total 2110 ml Balance 2110 ml Intake Oral 2110 ml # Bowel Movements 1 PHYSICAL EXAM Physical Exam GENERAL: NAD HEENT: OM MOist ,blind in her left eye. NECK: Supple. HEART: RRR Lungs : Clear to auscultation , no use of accessory muscles ABDOMEN: distended, soft and nontender. NEUROLOGIC:AxO Ext- left AKA ,AVF left upper extremity, thrill, Bruit+ Trace Rt LE edema No daniel DIAGNOSIS/ASSESSMENT Assessment & Plan ESRD - On HD- MWF- Dr. Finch seen during treatment, tolerating well. Continue as ordered, Augustine POWELL access Lt AVF Anemia- significant drop in Hgb POA- compared to september labs , < 7 POA Received2 Units of PRBC . No history of GI bleed . GI consulted Encephalopathy; CT head without acute changes Arrhythmia; frequent PVC's, bigeminy, and frequent brief bursts of NSVT.Card consulted CAD s/p CABG 2011; Echo 10/06 with preserved LV systolic function Acute on chronic diastolic CHF, appears compensated Hypertension; controlled. Diabetes, II Elevated LFTs PAD History of left above-knee amputation. sleep apnea COMMENT/RELEVANT DATA Meds Current Medications Medications (Trade) Dose Ordered Sig/Diana Start Time Stop Time Status Last Admin Dose Admin Albumin Human 200 ml @ 200 mls/hr 1X PRN PRN 06/06/21 15:45 06/06/21 21:44 DC Amiodarone HCl 150 mg/Dextrose 103 ml @ 618 mls/hr 1X ONCE 06/05/21 11:00 06/05/21 11:09 DC 06/05/21 11:17 618 MLS/HR Amiodarone HCl 450 mg/Dextrose 259 ml @ 34.533 mls/ hr CONT PRN 06/05/21 11:30 06/06/21 11:16 DC 06/05/21 19:30 17.7 MLS/HR Atorvastatin Calcium (Lipitor) 40 mg HS 06/06/21 21:00 06/07/21 21:44 40 MG Brimonidine Tartrate (Alphagan) 1 drop BID 06/06/21 11:00 06/07/21 21:43 1 DROP Calcium Gluconate (Calcium Gluconate) 1,000 mg 1X ONCE 06/05/21 09:45 06/05/21 09:46 DC 06/05/21 09:45 1,000 MG Cyanocobalamin (Vitamin B-12) 1,000 mcg DAILY 06/06/21 11:00 06/07/21 09:46 1,000 MCG Famotidine (Pepcid) 10 mg HS 06/06/21 21:00 06/06/21 11:50 DC Gabapentin (Neurontin) 100 mg TID 06/06/21 11:00 06/07/21 09:41 DC Glucose (INSTA-GLUCOSE GEL for [place]) 38 ml 1X PRN PRN 06/06/21 10:15 06/06/21 12:45 DC Glucose (Insta-Glucose) 15 gm PRN Q15MIN PRN 06/06/21 13:00 Glycerin/ Hypromellose/ Polyethylene (Artificial Tears) 1 drop BID 06/06/21 11:00 06/07/21 21:43 1 DROP Info (PHARMACY MONITORING -- do not chart) 1 each PRN DAILY PRN 06/06/21 15:45 Insulin Glargine (Lantus Syringe) 10 unit QHS 06/06/21 21:00 06/07/21 21:00 10 UNIT Insulin Human Lispro (HumaLOG) 5 units TIDWMEALS 06/06/21 12:00 06/07/21 17:16 5 UNITS Lactobacillus Rhamnosus (Culturelle) 1 cap DAILY 06/06/21 11:00 06/07/21 09:46 1 CAP Latanoprost (Xalatan) 1 drop QHS 06/06/21 21:00 06/07/21 21:43 1 DROP Levothyroxine Sodium (Synthroid) 100 mcg DAILY06 06/06/21 10:30 06/08/21 07:55 100 MCG Lubiprostone (Amitiza) 24 mcg BIDWMEALS 06/06/21 11:00 06/07/21 09:44 24 MCG Metoclopramide HCl (Reglan) 10 mg TIDACHC 06/06/21 11:30 06/07/21 21:44 10 MG Metoprolol Tartrate (Lopressor) 25 mg BID 06/05/21 21:00 06/07/21 09:46 25 MG Midodrine (Proamatine) 10 mg MoWeFr 06/06/21 11:00 06/07/21 15:48 10 MG Niacin (Niaspan) 500 mg QHS 06/06/21 21:00 06/07/21 21:44 500 MG Non-Formulary Medication (Insulin Detemir (Levemir)) 10 unit QHS 06/06/21 21:00 Cancel Nystatin (Nystop) 1 rose BID 06/06/21 11:00 06/07/21 21:42 1 ROSE Ondansetron HCl (Zofran Odt) 4 mg PRN Q6HRS PRN 06/06/21 10:30 Pantoprazole Sodium (Protonix) 40 mg DAILYAC 06/07/21 07:30 06/07/21 09:44 40 MG Piperacillin Sod/ Tazobactam Sod 2.25 gm/Sodium Chloride 50 ml @ 100 mls/hr Q8HRS 06/06/21 11:00 06/08/21 06:00 100 MLS/HR Piperacillin Sod/ Tazobactam Sod 4.5 gm/Sodium Chloride 100 ml @ 200 mls/hr 1X ONCE 06/05/21 11:30 06/05/21 11:59 UNV Polyethylene Glycol (miraLAX PACKET) 17 gm Q3DAYS 06/09/21 09:00 Psyllium Hydrophilic Mucilloid (Metamucil Fiber Packet) 1 pkt BID 06/06/21 11:00 06/07/21 21:44 1 PKT Ropinirole HCl (Requip) 1 mg HS 06/06/21 21:00 06/07/21 21:44 1 MG Sennosides (Senna) 17.2 mg DAILY 06/06/21 11:00 06/07/21 09:47 17.2 MG Sertraline HCl (Zoloft) 50 mg DAILY 06/07/21 09:00 06/07/21 09:44 50 MG Sevelamer Carbonate (Renvela) 2.4 gm TIDWMEALS 06/06/21 12:00 06/07/21 17:09 2.4 GM Sodium Bicarbonate (Sodium Bicarb Adult 8.4% Syr) 50 meq 1X ONCE 06/05/21 09:45 06/05/21 09:46 DC 06/05/21 10:00 50 MEQ Sodium Chloride 1,000 ml @ 400 mls/hr Q2H30M PRN 06/06/21 15:45 06/07/21 03:44 DC Timolol Maleate (Timoptic 0.5% Oph) 1 drop BID 06/06/21 11:00 06/07/21 21:43 1 DROP Vancomycin HCl (Vanco Per Pharmacy) 1 each PRN DAILY PRN 06/06/21 10:15 06/07/21 12:10 1 EACH Vancomycin HCl (Vancomycin Random Level) 1 each 1X ONCE 06/08/21 06:00 06/07/21 11:30 DC Vancomycin HCl 1.75 gm/Sodium Chloride 500 ml @ 250 mls/hr 1X ONCE 06/05/21 11:30 06/05/21 13:29 DC 06/05/21 12:11 250 MLS/HR Vancomycin HCl 500 mg/Sodium Chloride 100 ml @ 100 mls/hr QMWF 06/08/21 16:00 Vitamin B Complex/ Vitamin C (Maribell-Prem) 1 tab DAILY 06/06/21 11:00 06/07/21 09:43 1 TAB Zinc Sulfate (Orazinc) 220 mg DAILY 06/06/21 11:00 06/07/21 09:43 220 MG Lab Laboratory Tests Test 06/07/21 11:56 06/07/21 15:46 06/07/21 17:08 06/07/21 20:00 Glucose (Fingerstick) 175 mg/dL (70-99) 156 mg/dL (70-99) Stool Occult Blood Negative (NEG) Hemoglobin 8.0 g/dL (12.0-15.5) Hematocrit 24.8 % (36.0-47.0) Test 06/07/21 21:02 06/08/21 04:00 Glucose (Fingerstick) 163 mg/dL (70-99) Hemoglobin 7.5 g/dL (12.0-15.5) Hematocrit 23.0 % (36.0-47.0) Sodium Level 135 mmol/L (136-145) Potassium Level 4.2 mmol/L (3.5-5.1) Chloride Level 96 mmol/L (98-107) Carbon Dioxide Level 29 mmol/L (21-32) Anion Gap 10 (6-14) Blood Urea Nitrogen 36 mg/dL (7-20) Creatinine 4.5 mg/dL (0.6-1.0) Estimated GFR (Cockcroft-Gault) 9.8 Glucose Level 116 mg/dL (70-99) Calcium Level 8.5 mg/dL (8.5-10.1) Results All relevant outside records, renal labs, imaging studies, telemetry/EKG's were reviewed. Justicifation of Admission Dx: Justifications for Admission: Justification of Admission Dx: Yes NEVILLE ZIEGLER MD Jun 08, 2021 08:23
[2021-06-08] MEDS: BRIMONIDINE 0.2% OPHTH SOLUTION 5ML BOTTLE. OS SCH ×2 (09:00→21:45)
[2021-06-08] MEDS: POLYVINYL ALCOHOL 1.4% OPHTH SOLUTION 15ML BOTTLE. OU SCH ×2 (09:00→21:44)
[2021-06-08] MEDS: TIMOLOL 0.5% OPHTH SOLUTION 5ML BOTTLE. OS SCH ×2 (09:00→21:44)
[2021-06-08] MEDS: FOLIC/VIT B COMP W-C (RENAL) TABLET. PO SCH (09:00)
[2021-06-08] MEDS: METOPROLOL TART IMMED RELEASE 25 MG TABLET. PO SCH ×2 (09:00→21:42)
[2021-06-08] MEDS: rOPINIRole 0.25 MG TABLET. PO SCH (09:00)
--- NOTE | 2021-06-08 09:51 | PDOC ---
Date of Service: DATE: 06/08/21 TIME: 09:43 Objective: Objective: D/w Dr. Monroe - curious about any GI plans - nurse called yesterday to report two bloody stools. If no plans, possible DC tomorrow. Wondering also about Plavix and ASA. D/w nurse today - received nothing about bleeding in report, also has not witnessed any bleeding. Vital Signs: Vital Signs Date Time Temp Pulse Resp B/P (MAP) Pulse Ox O2 Delivery O2 Flow Rate FiO2 06/08/21 06:05 98.4 67 22 103/63 (76) 100 Nasal Cannula 2.0 98.4 Labs: Laboratory Tests Test 06/07/21 11:56 06/07/21 15:46 06/07/21 17:08 06/07/21 20:00 Glucose (Fingerstick) 175 mg/dL 156 mg/dL Stool Occult Blood Negative Hemoglobin 8.0 g/dL Hematocrit 24.8 % Test 06/07/21 21:02 06/08/21 04:00 06/08/21 07:50 Glucose (Fingerstick) 163 mg/dL 116 mg/dL Hemoglobin 7.5 g/dL Hematocrit 23.0 % Sodium Level 135 mmol/L Potassium Level 4.2 mmol/L Chloride Level 96 mmol/L Carbon Dioxide Level 29 mmol/L Anion Gap 10 Blood Urea Nitrogen 36 mg/dL Creatinine 4.5 mg/dL Estimated GFR (Cockcroft-Gault) 9.8 Glucose Level 116 mg/dL Calcium Level 8.5 mg/dL PE: GEN: dialyzing LUNGS: clear, NC 2L HEART: RRR ABD: large, non-distended NEURO/PSYCH: sleeping - not awakened A/P: Encephalopathy - better Chronic anemia - Hgb in 7s and 8s, not iron or B12 deficient (drawn after transfusion) ?blood in stools - Hemoccult negative H/o - changed from H2 ian to PPI H/o CAD, CVA, ESRD - Plavix and ASA on hold -- Will review with Dr. Arita. Justicifation of Admission Dx: Justifications for Admission: Justification of Admission Dx: Yes PASQUALE MCKENNA Jun 08, 2021 09:50
[2021-06-08] MEDS: VANCOMYCIN PER PHARMACY MC PRN (10:00)
[2021-06-08] MEDS ORDERED: DIALYSIS PATIENT. MC PRN ×2 (10:15)
[2021-06-08] MEDS ORDERED: IV NORMAL SALINE 1000ML BAG 1,000 ML IV PRN ×2 (10:15)
[2021-06-08] MEDS ORDERED: ALBUMIN HUMAN 25% 200 ML IV PRN (10:15)
--- NOTE | 2021-06-08 10:48 | PN ---
DATE: 06/08/2021 SUBJECTIVE: The patient is resting, slightly propped up in bed, having her scheduled hemodialysis today. Apart from some chronic back pain, she denied any other complaint. She is afebrile and her white cell count is normal. Her H and H is 7.5 and 23. She did receive 2 units of packed RBCs. She was seen in consultation by the Gastroenterology team and apparently there are no plans for any intervention. PHYSICAL EXAMINATION: GENERAL: When I examined her, she was pale, not jaundiced or cyanosed. No lymphadenopathy, no thyromegaly, no jugular venous distention. No limb edema. VITAL SIGNS: Her heart rate was 67, blood pressure was 103/63, temperature was 98.4, respiratory rate was 22 and oxygen saturation was 100% on 2 liters of oxygen. HEAD, EYES, EARS, NOSE AND THROAT: Normocephalic, atraumatic. NECK: Supple. HEART: Showed normal first and second heart sounds. No gallop, rub or murmur. CHEST: Clear to auscultation. No crepitation or rhonchi. ABDOMEN: Distended, soft, nontender. NEUROLOGIC: She is awake, alert, responding appropriately. She is blind in her right eye. Otherwise, all cranial nerves intact. She moves upper extremities without difficulty. She has right above-knee amputation. She is mostly bedbound, chair bound. LABORATORY DATA: As of this morning, her white cell count was 7.5, hemoglobin 23. Her chemistry is variable, is hemodialysis dependent. Her blood cultures are negative with no growth after 2 days. ASSESSMENT: 1. Altered mental status, resolved. The patient is more awake, alert. 2. Healthcare-associated pneumonia, for which she is on Zosyn and vancomycin. Her blood cultures are negative, so I discontinued her vancomycin. 3. Anemia, required 2 units of packed red blood cells. No obvious source of bleeding. She is now on proton pump inhibitor. 4. End-stage renal disease, on hemodialysis Friday, Friday, Friday. 5. She did have recurrent episodes of nonsustained ventricular tachycardia for which she was seen by the fishing worker. She was started on amiodarone drip that was discontinued and her echocardiogram showed her left ventricular systolic function is normal, ejection fraction normal range. Ejection fraction was 50-55%. 6. The patient has multiple other medical problems including type 2 diabetes mellitus, hypertension, peripheral vascular disease, cerebrovascular accident with left-sided hemiplegia, hyperlipidemia, morbid obesity and obstructive sleep apnea. PLAN: To repeat her H and H tonight and again tomorrow morning. If her hemoglobin and hematocrit remain stable, we will discharge her back to [facility]. I also consulted the fixture repairer fabricator to trim her finger and toenails. JAVIER DR: Ivone TID: [id number]
[2021-06-08] MEDS: SERTRALINE 50 MG TABLET. PO SCH (12:51)
[2021-06-08] MEDS: ZINC SULFATE 220 MG CAPSULE. PO SCH (12:51)
[2021-06-08] MEDS: PANTOPRAZOLE 40 MG TABLET.DR. PO SCH (12:51)
[2021-06-08] MEDS: LACTOBACILLUS RHAMNOSUS GG 1 CAPSULE. PO SCH (12:51)
[2021-06-08] MEDS: rOPINIRole 1 MG TABLET. PO SCH ×2 (12:53→21:42)
[2021-06-08] MEDS: NYSTATIN TOPICAL POWDER 15GM BOTTLE. TP SCH ×2 (12:54→21:44)
[2021-06-08] MEDS: CYANOCOBALAMIN (VITAMIN B-12) 1,000 MCG TABLET. PO SCH (12:54)
[2021-06-08] MEDS ORDERED: LACTOBACILLUS RHAMNOSUS GG 1 CAPSULE. PO ONE (13:00)
--- NOTE | 2021-06-08 14:36 | NUR ---
SS following up with discharge planning. SS reviewed pt chart and discussed with pt RN. Pt is currently requiring oxygen at two liters nasal canula. Pt on IV Zosyn. Pt has hemodialysis Friday, Friday, and Friday. Pt is LTC resident at [facility], ; fax [phone]. Possible return to facility tomorrow if medically stable for discharge. Derick at [facility] updated. Packet placed on chart. SS will continue to follow for discharge planning.
[2021-06-08 14:38] VITALS: BP 86/43
--- NOTE | 2021-06-08 15:51 | PDOC ---
BRENT VICENTE DISCHARGING MACHINE OPERATOR 06/08/21 1551: CARDIO Progress Notes Date and Time Date of Service 06/08/2021 Time of Evaluation 1530 Subjective Subjective: No Chest Pain, No shortness of breath, No Palpitations, No Dizziness Vitals Vitals Vital Signs Date Time Temp Pulse Resp B/P (MAP) Pulse Ox O2 Delivery O2 Flow Rate FiO2 06/08/21 14:38 98.0 69 24 86/43 (57) 100 Nasal Cannula 2.0 98.0 Weight Weight [ ] Input and Output Intake and Output Intake and Output 06/08/21 07:00 Intake Total 2110 ml Balance 2110 ml Intake Oral 2110 ml # Bowel Movements 1 Laboratory Labs Laboratory Tests Test 06/07/21 17:08 06/07/21 20:00 06/07/21 21:02 06/08/21 04:00 Glucose (Fingerstick) 156 mg/dL (70-99) 163 mg/dL (70-99) Hemoglobin 8.0 g/dL (12.0-15.5) 7.5 g/dL (12.0-15.5) Hematocrit 24.8 % (36.0-47.0) 23.0 % (36.0-47.0) Sodium Level 135 mmol/L (136-145) Potassium Level 4.2 mmol/L (3.5-5.1) Chloride Level 96 mmol/L (98-107) Carbon Dioxide Level 29 mmol/L (21-32) Anion Gap 10 (6-14) Blood Urea Nitrogen 36 mg/dL (7-20) Creatinine 4.5 mg/dL (0.6-1.0) Estimated GFR (Cockcroft-Gault) 9.8 Glucose Level 116 mg/dL (70-99) Calcium Level 8.5 mg/dL (8.5-10.1) Test 06/08/21 07:50 06/08/21 12:53 Glucose (Fingerstick) 116 mg/dL (70-99) 168 mg/dL (70-99) Microbiology Micro Microbiology 06/05/21 Blood Culture - Preliminary, Resulted NO GROWTH AFTER 3 DAYS Physical Exam HEENT: Neck Supple W Full Motion Chest: Symmetric LUNGS: Other (diminished bases) Heart: RRR (SR) Abdomen: Soft N/T, Other (obese) Extremities: Other (left AKA) Neurology: alert, oriented, follow commands Assessment Assessment 1. Encephalopathy; CT head without acute changes, mentation better 2. Anemia; requiring transfusion x2. hgb 7.5. No obvious bleeding. 3. Arrhythmia; frequent PVC's, bigeminy, and frequent brief bursts of NSVT in ED. Also with LBBB. Amiodarone discontinued due to prolonged first degree AVB. Presently SR, no arrhythmias overnight 4. CAD s/p CABG 2011; Echo 10/06 with preserved LV systolic function 5. Acute on chronic diastolic CHF; echo with preserved LV systolic function with an EF of 50-55%. 6. Hypertension; currently hypotensive with SBP in the upper 80s post HD but asymptomatic. 7. Hyperlipidemia; statin 8. Diabetes, II 9. ESRD on HD 10. Elevated LFTs 11. PAD s/p left AKA 12. Mild to moderate mitral valve stenosis. Recommendations Maintaining SR with long first degree AV block otherwise no significnat arrhythmias. Monitor rhythm Secondary prevention No ASA, Plavix with anemia Fluid offloading, management via HD Supportive care Could start on midodrine if BP remains persistently at low end particularly with dialysis days Justicifation of Admission Dx: Justifications for Admission: Justification of Admission Dx: Yes SAMIR BORREGO MD 06/08/211946: CARDIO Progress Notes Plan Plan Patient seen and examined. Agree with above nurse practitioner note. Supportive care. BRENT VICENTE APRN Jun 08, 2021 15:51 SAMIR BORREGO MD Jun 08, 2021 19:47
[2021-06-08] MEDS ORDERED: VANCOMYCIN 500 MG in IV NORMAL SALINE 100ML 100 ML IV SCH (16:00)
[2021-06-08 18:31] VITALS: BP 137/51
[2021-06-08 18:40] LABS: HEMATOCRIT 24.9 % (36.0-47.0); HEMOGLOBIN 8.1 g/dL (12.0-15.5)
[2021-06-08] MEDS ORDERED: EPOETIN ALFA-EPBX for ESRD 20,000 UNIT/ML VIAL. SQ SCH (21:00)
[2021-06-08] MEDS: NIACIN ER 250 MG CAPSULE.ER PO SCH (21:42)
[2021-06-08] MEDS: ATORVASTATIN CALCIUM 40 MG TABLET. PO SCH (21:42)
[2021-06-08] MEDS: LATANOPROST 0.005% OPHTH SOLUTION 2.5ML BOTTLE. OS SCH (21:45)
[2021-06-08 22:17] VITALS: BP 116/58
[2021-06-09 02:39] VITALS: BP 97/63
[2021-06-09 04:52] LABS: HEMATOCRIT 22.5 % (36.0-47.0); HEMOGLOBIN 7.4 g/dL (12.0-15.5); RED BLOOD COUNT 2.19 x10^6/uL (3.50-5.40); RED CELL DISTRIBUTION WIDTH 21.1 % (11.5-14.5); WHITE BLOOD COUNT 6.3 x10^3/uL (4.0-11.0)
[2021-06-09] MEDS: PIPERACILLIN/TAZOBACTAM 2.25 GM in IV NORMAL SALINE 50ML 50 ML IV SCH ×2 (06:47→14:36)
[2021-06-09] MEDS: LEVOTHYROXINE 100 MCG TABLET PO SCH (06:47)
[2021-06-09 07:00] VITALS: BP 110/46
[2021-06-09] MEDS: SENNOSIDES 8.6 MG TABLET PO SCH (07:38)
[2021-06-09] MEDS: PSYLLIUM HUSK (SUGAR FREE) 1 PKT PACKET PO SCH (07:38)
[2021-06-09] MEDS ORDERED: POLYETHYLENE GLYCOL 3350 17 GM PACKET. PO SCH (09:00)
[2021-06-09] MEDS: ZINC SULFATE 220 MG CAPSULE. PO SCH (09:04)
[2021-06-09] MEDS: FOLIC/VIT B COMP W-C (RENAL) TABLET. PO SCH (09:04)
[2021-06-09] MEDS: SERTRALINE 50 MG TABLET. PO SCH (09:04)
[2021-06-09] MEDS: METOPROLOL TART IMMED RELEASE 25 MG TABLET. PO SCH (09:04)
[2021-06-09] MEDS: PANTOPRAZOLE 40 MG TABLET.DR. PO SCH (09:04)
[2021-06-09] MEDS: METOCLOPRAMIDE 10 MG TABLET. PO SCH ×2 (09:04→12:09)
[2021-06-09] MEDS: rOPINIRole 0.25 MG TABLET. PO SCH (09:05)
[2021-06-09] MEDS: LACTOBACILLUS RHAMNOSUS GG 1 CAPSULE. PO SCH (09:05)
[2021-06-09] MEDS: BRIMONIDINE 0.2% OPHTH SOLUTION 5ML BOTTLE. OS SCH (09:05)
[2021-06-09] MEDS: CYANOCOBALAMIN (VITAMIN B-12) 1,000 MCG TABLET. PO SCH (09:05)
[2021-06-09] MEDS: TIMOLOL 0.5% OPHTH SOLUTION 5ML BOTTLE. OS SCH (09:05)
[2021-06-09] MEDS: NYSTATIN TOPICAL POWDER 15GM BOTTLE. TP SCH (09:05)
[2021-06-09] MEDS: POLYVINYL ALCOHOL 1.4% OPHTH SOLUTION 15ML BOTTLE. OU SCH (09:05)
[2021-06-09] MEDS: INSULIN LISPRO 300 UNITS/3 ML VIAL. SQ SCH ×2 (09:23→12:14)
[2021-06-09 10:34] VITALS: BP 80/40
[2021-06-09] MEDS ORDERED: EPOE10008 IJ (11:35)
[2021-06-09] MEDS ORDERED: AMOX1TAB58 PO (11:40)
[2021-06-09] MEDS: SEVELAMER CARBONATE 2.4 GM PACKET. PO SCH (12:09)
[2021-06-09 14:49] VITALS: BP 99/35
--- NOTE | 2021-06-09 16:30 | NUR ---
report called to Eloisa caceres.
--- NOTE | 2021-06-19 15:50 | CONS ---
DATE OF CONSULTATION: 06/08/2021 PODIATRY CONSULTATION REASON FOR CONSULTATION: Evaluate and treat mycotic nails. REVIEW OF RECORD: This is a 66-year-old female who was admitted with history of end-stage renal disease. She had an altered mental state. She is a resident at a prison in [place]. PAST MEDICAL HISTORY: Positive for diabetes with a history of neuropathy, nephropathy, retinopathy, hypertension, peripheral vascular disease, status post left [id number] amputation, end-stage renal disease, hemodialysis, cerebrovascular accident with left side hemiplegia, hyperlipidemia, morbid obesity, obstructive sleep apnea and cardiomyopathy. PAST SURGICAL HISTORY: Left arm arteriovenous fistula placement, cholecystectomy, left foot transmetatarsal amputation, revascularization attempt of the left lower extremity with resultant left [id number] amputation, coronary artery bypass graft surgery, colonoscopy and upper GI. ALLERGIES: SHE IS ALLERGIC TO IODINE, HYDROCODONE, TYLENOL AND OXYIR. FAMILY HISTORY: Noncontributory. SOCIAL HISTORY: , lives at [facility]. Does not smoke, drink alcohol or use recreational drugs. MEDICATIONS: Reviewed. She is insulin dependent and takes gabapentin for neuropathy. PHYSICAL EXAMINATION: EXTREMITIES: Elongated, mildly mycotic nails of the right foot only. Second toe, right foot has some dried blood underneath the nail, which is easily removed upon debridement of loose nail plate. No hemorrhage incurred. The patient appreciated and tolerated the procedure at bedside. VASCULAR: Left leg amputate. Diminished and absent pedal pulses, right. NEUROLOGIC: The patient has a history of neuropathy. Relates numbness, burning and tingling consistent with diabetic neuropathy. MUSCULOSKELETAL: Amputation above the knee, left lower extremity. ASSESSMENT: 1. History of diabetes with peripheral vascular disease, neuropathy and left leg amputation. 2. Onychomycosis, onychocryptosis of multiple nails, right foot only. No hemorrhage incurred. No signs of infection. PLAN: Follow up as needed by furniture dipper at the facility would be my recommendation. LINDA DR: Rosalie TID: [id number]
== END 2021-06-09 16:02 | DRG 177 ==
LOC: ER 09:27 → ED HOLD 11:00 → 6 SOUTH 17:45
PROVIDERS: ADMIT Internal Medicine; ATTEND Internal Medicine
PROC: 30233N1 Transfusion of Nonautologous Red Blood Cells into Peripheral Vein, Percutaneous Approach (ICD-10-PCS; principal; 2021-06-05)
PROC: 5A1D70Z Performance of Urinary Filtration, Intermittent, Less than 6 Hours Per Day (ICD-10-PCS; 2021-06-06)
PROC: 5A1D70Z Performance of Urinary Filtration, Intermittent, Less than 6 Hours Per Day (ICD-10-PCS; 2021-06-08)
DX: J15.6 Pneumonia due to other Gram-negative bacteria (principal); I50.33 Acute on chronic diastolic (congestive) heart failure; N18.6 End stage renal disease; I13.2 Hypertensive heart and chronic kidney disease with heart failure and with stage 5 chronic kidney disease, or end stage renal disease; G93.40 Encephalopathy, unspecified; I47.2 Ventricular tachycardia; J44.0 Chronic obstructive pulmonary disease with (acute) lower respiratory infection; I42.9 Cardiomyopathy, unspecified; I69.354 Hemiplegia and hemiparesis following cerebral infarction affecting left non-dominant side; D64.9 Anemia, unspecified; E11.22 Type 2 diabetes mellitus with diabetic chronic kidney disease; E11.319 Type 2 diabetes mellitus with unspecified diabetic retinopathy without macular edema; E11.42 Type 2 diabetes mellitus with diabetic polyneuropathy; E11.43 Type 2 diabetes mellitus with diabetic autonomic (poly)neuropathy; E11.51 Type 2 diabetes mellitus with diabetic peripheral angiopathy without gangrene; E66.01 Morbid (severe) obesity due to excess calories; E78.00 Pure hypercholesterolemia, unspecified; E78.5 Hyperlipidemia, unspecified; G25.81 Restless legs syndrome; G47.33 Obstructive sleep apnea (adult) (pediatric); H40.9 Unspecified glaucoma; H54.62 Unqualified visual loss, left eye, normal vision right eye; I05.0 Rheumatic mitral stenosis; I25.10 Atherosclerotic heart disease of native coronary artery without angina pectoris; I44.0 Atrioventricular block, first degree; I44.7 Left bundle-branch block, unspecified; K57.90 Diverticulosis of intestine, part unspecified, without perforation or abscess without bleeding; T50.905A Adverse effect of unspecified drugs, medicaments and biological substances, initial encounter; Y95 Nosocomial condition; Z82.49 Family history of ischemic heart disease and other diseases of the circulatory system; Z83.3 Family history of diabetes mellitus; Z89.612 Acquired absence of left leg above knee; Z90.49 Acquired absence of other specified parts of digestive tract; Z95.1 Presence of aortocoronary bypass graft; Z99.2 Dependence on renal dialysis; E21.3 Hyperparathyroidism, unspecified; F32.A Depression, unspecified; F41.9 Anxiety disorder, unspecified; K21.9 Gastro-esophageal reflux disease without esophagitis; M19.90 Unspecified osteoarthritis, unspecified site; Z88.8 Allergy status to other drugs, medicaments and biological substances; Z20.822 Contact with and (suspected) exposure to COVID-19; Y92.89 Other specified places as the place of occurrence of the external cause; Z74.01 Bed confinement status; Z99.3 Dependence on wheelchair
CPT/HCPCS: 36415; 36430; 70450; 71045; 80048; 80053; 80061; 80202; 82140; 82274; 82550; 82607; 82962; 83540; 83550; 83735; 83880; 84443; 84484; 85014; 85018; 85025; 85027; 85610; 85730; 86706; 86850; 86900; 86901; 86920; 87040; 93005; 93306; 96365; 96367; 96368; 96375; J0282; J0610; J1815; J2543; J3370; J3490; J7040; J7060; P9016; 99285-25; G0378